=== PATIENT | female | born 1975 | race Caucasian/White ===

== ENCOUNTER 2022-09-03 11:31 | Outpatient (OUT) | payer BC, SELFPAY ==
[2022-09-03 12:08] LABS: Basophils Absolute Auto 0.1 10^3/uL (0.0-0.1); Basophils Percent Auto 0.8 % (0.2-2.0); Eosinophils Absolute Auto 0.4 10^3/uL (0.0-0.7); Eosinophils Percent Auto 4.2 % (0.9-7.0); Hematocrit 42.5 % (36.0-48.0); Hemoglobin 14.4 g/dL (12.0-16.0); Immature Granulocytes Abs Auto 0.04 10^3/uL (0.00-0.03); Immature Granulocytes Pct Auto 0.4 % (0.0-0.5); Lymphocytes Percent Auto 31.3 % (20.5-60.0); Mean Corpuscular HGB Conc 33.9 g/dL (29.9-35.2); Mean Corpuscular Hemoglobin 29.3 pg (26.7-34.0); Mean Corpuscular Volume 86.6 fL (81.0-99.0); Mean Platelet Volume 10.1 fL (9.5-13.5); Monocytes Absolute Auto 0.8 10^3/uL (0.3-0.8); Monocytes Percent Auto 8.6 % (1.7-12.0); Neutrophils Absolute Auto 5.2 10^3/uL (1.4-6.5); Neutrophils Percent Auto 54.7 % (43.0-75.0); Platelet Count 375 10^3/uL (150-450); Red Blood Count 4.91 10^6/uL (4.20-5.40); Red Cell Distribution Width 12.7 % (11.0-15.0); White Blood Count 9.5 10^3/uL (4.0-11.0)
[2022-09-03 12:18] LABS: Estimated Average Glucose 111 mg/dL; Glycohemoglobin A1C 5.5 % (4.5-6.2)
[2022-09-03 12:45] LABS: Alanine Aminotransferase 31 U/L (14-59); Albumin Level 3.8 g/dL (3.4-5.0); Alkaline Phosphatase 96 U/L (46-116); Anion Gap 13.5; Aspartate Amino Transferase 20 U/L (15-37); BUN Creatinine Ratio 9.6; Calcium 8.7 mg/dL (8.5-10.1); Carbon Dioxide 26.7 mmol/L (21.0-32.0); Chloride 101 mmol/L (98-107); Estimated GFR (African America >60 (>=60); Estimated GFR (Non-African Ame >60 (>=60); Globulin 3.8 g/dL; Glucose 89 mg/dL (74-106); Potassium 4.2 mmol/L (3.5-5.1); Sodium 137 mmol/L (136-145); Total Protein 7.6 g/dL (6.4-8.2)
[2022-09-03 12:53] LABS: Chol HDL Ratio 4.2; Cholesterol 166 mg/dL (<=200); HDL Cholesterol 40 mg/dL (40-60); LDL Cholesterol Calculated 109.4 mg/dL; Thyroid Stimulating Hormone 2.305 uIU/mL (0.358-3.740); Triglycerides 83 mg/dL (<=150); VLDL CHOLESTEROL 16.6 mg/dL
== END 2022-09-03 11:32 | disposition home or self-care (01) ==
LOC: LAB 11:34
PROVIDERS: PCP Family Medicine; Visit Provider Family Medicine
DX: Z00.00 Encounter for general adult medical examination without abnormal findings (principal)
CPT/HCPCS: 36415; 80053; 80061; 83036; 84443; 85025

== ENCOUNTER 2022-09-09 07:40 | Outpatient (OUT) | payer BC, SELFPAY ==
--- NOTE | 2022-09-09 07:42 | MM_ITS ---
Patient: PEG RHODES Exam Date: 09/09/2022 : 1975 Gender:F Ordering : DR Ethan Bond . Admission #: [id number] Family : DR Marilynn Schaefer M.D. Order #: [id number] CLICK HERE TO VIEW EXAM RADIOLOGY REPORT PROCEDURE: MM TOMOSYNTHESIS SCREENING BI COMPARISON: MG MAMM SCREEN 3D LOLLY CAD, 09/04/2020. MG MAMM SCREEN 3D LOLLY CAD, 09/05/2021. INDICATIONS: Screening Calculator Name NCI Breast Cancer Risk Assessment Tool 5 Year Breast Cancer Risk 1.00% Lifetime Breast Cancer Risk 8.80% Personal Breast Cancer No Personal Ovarian Cancer No Treatments None Family Cancers None LOCATION: [facility] BREAST COMPOSITION: Heterogeneously dense,which may obscure small masses. FINDINGS: DIAGNOSTIC CATEGORY 2--BENIGN FINDING. NO CHANGE FROM COMPARISON. Scattered benign-appearing nodules are present. Scattered benign-appearing calcifications are present. Scattered benign-appearing lymph nodes are present. RIGHT BREAST: No significant suspicious finding. LEFT BREAST: No significant suspicious finding. RECOMMENDATIONS: ROUTINE MAMMOGRAM AND CLINICAL EVALUATION IN 12 MONTHS. PLEASE NOTE: A NORMAL MAMMOGRAM DOES NOT EXCLUDE THE POSSIBILITY OF BREAST CANCER. A CLINICALLY SUSPICIOUS PALPABLE LUMP SHOULD BE BIOPSIED. Dictated by: Alfred Gan MD on 09/09/2022 at 08:56 Approved by: Alfred Gan MD on 09/09/2022 at 08:57
== END 2022-09-09 07:41 | disposition home or self-care (01) ==
PROVIDERS: PCP Family Medicine; Visit Provider Obstetrics & Gynecology
DX: Z12.31 Encounter for screening mammogram for malignant neoplasm of breast (principal)
CPT/HCPCS: 77063; 77067

== ENCOUNTER 2023-08-21 11:38 | Outpatient (OUT) | payer BC, SELFPAY ==
[2023-08-21 12:58] LABS: Estimated Average Glucose 100 mg/dL; Glycohemoglobin A1C 5.1 % (4.5-6.2)
[2023-08-21 13:00] LABS: Basophils Absolute Auto 0.1 10^3/uL (0.0-0.1); Basophils Percent Auto 1.2 % (0.2-2.0); Eosinophils Absolute Auto 0.2 10^3/uL (0.0-0.7); Eosinophils Percent Auto 2.2 % (0.9-7.0); Hematocrit 41.4 % (36.0-48.0); Hemoglobin 13.9 g/dL (12.0-16.0); Immature Granulocytes Abs Auto 0.02 10^3/uL (0.00-0.03); Immature Granulocytes Pct Auto 0.3 % (0.0-0.5); Lymphocytes Absolute Auto 2.9 10^3/uL (1.2-3.8); Lymphocytes Percent Auto 37.3 % (20.5-60.0); Mean Corpuscular HGB Conc 33.6 g/dL (29.9-35.2); Mean Corpuscular Hemoglobin 29.1 pg (26.7-34.0); Mean Corpuscular Volume 86.8 fL (81.0-99.0); Mean Platelet Volume 10.6 fL (9.5-13.5); Monocytes Absolute Auto 0.6 10^3/uL (0.3-0.8); Platelet Count 364 10^3/uL (150-450); Red Blood Count 4.77 10^6/uL (4.20-5.40); Red Cell Distribution Width 12.2 % (11.0-15.0); White Blood Count 7.8 10^3/uL (4.0-11.0)
[2023-08-21 13:20] LABS: Alanine Aminotransferase 12 U/L (14-59); Albumin Globulin Ratio 1.2; Alkaline Phosphatase 87 U/L (46-116); Anion Gap 14.2; Aspartate Amino Transferase 12 U/L (15-37); BUN Creatinine Ratio 11.5; Bilirubin Total 1.1 mg/dL (0.2-1.0); Calcium 8.9 mg/dL (8.5-10.1); Carbon Dioxide 27.1 mmol/L (21.0-32.0); Chloride 100 mmol/L (98-107); Chol HDL Ratio 2.8; Cholesterol 147 mg/dL (<=200); Estimated GFR (African America >60 (>=60); Estimated GFR (Non-African Ame >60 (>=60); Globulin 3.4 g/dL; Glucose 86 mg/dL (74-106); HDL Cholesterol 53 mg/dL (40-60); LDL Cholesterol Calculated 73.4 mg/dL; Potassium 4.3 mmol/L (3.5-5.1); Sodium 137 mmol/L (136-145); Thyroid Stimulating Hormone 2.481 uIU/mL (0.358-3.740); Total Protein 7.4 g/dL (6.4-8.2); Triglycerides 103 mg/dL (<=150); VLDL CHOLESTEROL 20.6 mg/dL
== END 2023-08-21 11:39 | disposition home or self-care (01) ==
LOC: LAB 11:40
PROVIDERS: PCP Family Medicine; Visit Provider Family Medicine
DX: Z00.00 Encounter for general adult medical examination without abnormal findings (principal)
CPT/HCPCS: 36415; 80053; 80061; 83036; 84443; 85025

== ENCOUNTER 2023-09-10 07:25 | Outpatient (OUT) | payer BC, SELFPAY ==
--- NOTE | 2023-09-10 | MM_ITS ---
Patient Name: PEG RHODES MR#: [id number] : 1975 Exam Date: 09/10/2023 Ordering Doctor: DR Ethan Bond . RADIOLOGY REPORT PROCEDURE: MM TOMOSYNTHESIS SCREENING BI COMPARISON: MG MAMM SCREEN 3D LOLLY CAD, 09/05/2021. MG MAMM SCREEN 3D LOLLY CAD, 09/04/2020. MG MAMM LOLLY SCRN W CAD DIG, 06/07/2004. MM TOMOSYNTHESIS SCREENING BI, 09/09/2022. INDICATIONS: Screening Calculator Name NCI Breast Cancer Risk Assessment Tool 5 Year Breast Cancer Risk 0.90% Lifetime Breast Cancer Risk 8.60% Personal Breast Cancer No Personal Ovarian Cancer No Treatments None Family Cancers None LOCATION: [facility] BREAST COMPOSITION: The breasts are heterogeneously dense,which may obscure small masses. FINDINGS: DIAGNOSTIC CATEGORY 2--BENIGN FINDING: RIGHT BREAST: No significant suspicious finding. Increased breast density bilaterally. LEFT BREAST: No significant suspicious finding. Increased breast density bilaterally suggesting hormonal changes. RECOMMENDATIONS: ROUTINE MAMMOGRAM AND CLINICAL EVALUATION IN 12 MONTHS. PLEASE NOTE: A NORMAL MAMMOGRAM DOES NOT EXCLUDE THE POSSIBILITY OF BREAST CANCER. A CLINICALLY SUSPICIOUS PALPABLE LUMP SHOULD BE BIOPSIED. Dictated by: Jose Mejia M.D. on 09/10/2023 at 09:02 Approved by: Jose Mejia M.D. on 09/10/2023 at 09:07
== END 2023-09-10 07:26 | disposition home or self-care (01) ==
LOC: MAMMO 07:25
PROVIDERS: PCP Family Medicine; Visit Provider Obstetrics & Gynecology
DX: Z00.00 Encounter for general adult medical examination without abnormal findings (principal); Z12.31 Encounter for screening mammogram for malignant neoplasm of breast
CPT/HCPCS: 77063; 77067; 87624; 88175

== ENCOUNTER 2023-09-10 20:11 | Outpatient (REF) | payer BC, SELFPAY | END 2023-09-10 20:12 | disposition home or self-care (01) | LOC: LAB 20:11 | PROVIDERS: PCP Family Medicine; Visit Provider Obstetrics & Gynecology | DX: Z01.419 Encounter for gynecological examination (general) (routine) without abnormal findings (principal) | CPT/HCPCS: 88175 ==

== ENCOUNTER 2023-12-16 10:37 | Outpatient (OUT) | payer BC, SELFPAY | END 2023-12-16 10:38 | disposition home or self-care (01) | LOC: PST 10:37 | PROVIDERS: PCP Family Medicine; Visit Provider Surgery | DX: Z01.818 Encounter for other preprocedural examination (principal); Z12.11 Encounter for screening for malignant neoplasm of colon ==

== ENCOUNTER 2024-01-07 09:05 | Day surgery (SDC) | payer BC, SELFPAY ==
--- NOTE | 2024-01-07 | OP_ITS ---
OPERATION DATE: 01/07/2024 PREOPERATIVE DIAGNOSIS: Colorectal screening. POSTOPERATIVE DIAGNOSIS: 5 mm distal sigmoid polyp. PROCEDURE: Colonoscopy to cecum with hot snare polypectomy x1. SURGEON: Eleno Lund M.D. ANESTHESIA: Monitored anesthesia care. ESTIMATED BLOOD LOSS: Less than 1 mL. INDICATIONS AND CONSENT: Patient is a 48-year-old female presents for colorectal screening. Indications, risks, benefits, alternatives of proceeding with colonoscopy were explained extensively to the patient, including the risks of bleeding, colon perforation or anesthetic complications. All of her questions were answered. Informed consent was obtained. PROCEDURE: Patient brought to the operating room, placed in the left lateral decubitus position. Monitored anesthesia care was provided. Rectal exam was performed which showed no masses or blood. Scope was inserted into the anal canal. Under direct visualization was advanced. It was advanced to the cecum where cecal markings were clearly identified. There was noted to be a good prep. Upon withdrawal of the scope, mucosal surfaces were carefully examined. There were no mass lesions or inflammatory changes. No significant diverticulosis. Within the distal sigmoid, at approximately 20 cm, there was noted to be a 5 mm sessile polyp, frond-like, that was removed with hot snare with good hemostasis. The scope was retroflexed in the anal canal. There was no significant hemorrhoidal disease. Scope was then withdrawn. Patient tolerated procedure well, was sent to recovery room in good condition. Follow up colonoscopy for surveillance should likely be in five years, but will depend on the pathology results. CC: Marilynn Schaefer M.D. RAY
[2024-01-07 09:25] VITALS: BP 109/62; PULSE 77; TEMP 36.4; O2SAT 99; BMI 20.3
--- OUTSIDE RECORDS SUMMARY | 2024-01-07 09:26 | XMS_ITS | CCD ---
Author Organization [facility] Care Team Providers Care [address] Magistrate Name Role Phone DR MARILYNN SILVA Primary Care Unavailable ESME, DALLIN Admitting Unavailable ESME, DALLIN Attending Unavailable ESME, DALLIN Consulting Unavailable RICARDO, DR MARILYNN Bales Primary Care Unavailable HADLEY, DR BONG Rasheed Consulting Unavailable ESME, DALLIN Admitting Unavailable ESME, DALLIN Attending Unavailable ESME, DALLIN Consulting Unavailable ESME, DALLIN Admitting Unavailable SILVA, DR MARILYNN Bales Primary Care Unavailable ESME, DALLIN Attending Unavailable ESME, DALLIN Consulting Unavailable ENTERPRISE, DR BONG Rasheed Consulting Unavailable ESME, DALLIN Admitting Unavailable ESME, DALLIN Attending Unavailable RICARDO, DR MARILYNN Bales Primary Care Unavailable ESME, DALLIN Consulting Unavailable ENTERPRISE, DR BONG Rasheed Consulting Unavailable ESME, DALLIN Admitting Unavailable ESME, DALLIN Attending Unavailable RICARDO, DR MARILYNN Bales Primary Care Unavailable ESME, DALLIN Consulting Unavailable RICARDO, DR MARILYNN Bales Primary Care Unavailable RICARDO, DR MARILYNN Bales Admitting Unavailable RICARDO, DR MARILYNN Bales Attending Unavailable RICARDO, DR MARILYNN Bales Consulting Unavailable Marilynn Silva Unavailable DALLIN BOND Attending Unavailable Eleno COURTNEY Attending Unavailable SID HORNER Referring Unavailable MARILYNN SILVA Primary Care Physician Allergies Allergy Classification Reported Allergen(s) Allergy Type Date of Onset Reaction(s) Facility (1 source) No Known Medication Allergies; Translations: [No Known Medication Allergies] Propensity to adverse reactions (disorder) [facility] Repository Medications Current Medications Medication Drug Class(es) Dates Sig (Normalized) Sig (Original) azithromycin 250 mg oral tablet (1 source) Macrolide Antimicrobial Start: 01-06-2023 Azithromycin 250 MG as directed Orally 2 tabs po today, then 1 tab daily x 4 more days for 5 13 Dec, 2022 Active metFORMIN (7 sources) Biguanide Start: 11-24-2023 metformin Refills(s) 0 Start Date: 11/24/23 Status: Ordered Start: 08-25-2023 take 1 tablet by tara th once daily Metformin Active 1 TAB PO Daily August 25, 2023 12:00am FreeTextSi tablet with a meal Orally Once a day; Note: Source Status: Taking; Provider: Ricardo Subramanian ( ) take 1 tablet by tara th every twenty-four hours metFORMIN HCl 500 MG 1 tablet with a meal Orally Once a day Active phentermine hydrochloride 37.5 mg oral tablet (3 sources) Sympathomimetic Amine Anorectic Start: 10-08-2022 take 1 tablet by mouth once daily before breakfast Adipex-P 37.5 MG 1 tablet before breakfast Orally Once a day for 30 days Sep, Active Start: 09-10-2022 take 1 tablet by tara th once daily before breakfast Adipex-P 37.5 MG 1 tablet before breakfast Orally Once a day for 30 days Aug, Active tizanidine (7 sources) Central alpha-2 Adrenergic Agonist Start: 11-24-2023 tizanidine Refills(s ) 0 Start Date: 11/24/23 Status: Ordered Start: 08-25-2023 take 1 tablet by tara th three times daily as needed Tizanidine Active 1 TAB PO Three times daily August 25, 2023 12:00am FreeTextSi tablet as needed Orally Three times a day; Note: Source Status: Taking; Provider: Ricardo Subramanian ( ) take 1 tablet by tara th every eight hours tiZANidine HCl 2 MG 1 tablet as needed Orally Three times a day Active Zomig (5 sources) Serotonin-1b and Serotonin-1d Receptor Agonist Start: 11-24-2023 Zomig Refills(s) 0 S tart Date: 11/24/23 Status: Ordered Zomig 5 MG 1 spr ay at onset of headache may repeat after 2 hours up to 10 mg per 24 hours as needed Nasally Once a day Active Zolmitriptan (Zomig) 5 mg spray,non-aerosol (2 sources) Start: 08-26-2023 take 1 spray(s) nasal route every two hours Zolmitriptan (Zomig) 5 mg spray,non-aerosol Active 1 SPRAY INTRANASAL Every 2 hours August 26, 2023 12:00am administer into one nostril (only); alternate nostrils; do not exceed 10 mg /24 hrs Problems Active Problems Problem Classification Problem Date Documented Date Episodic/Chronic Abdominal pain (4 sources) Pelvic and perineal pain; Translations: [PELVIC AND PERINEAL PAIN] Onset: 06-10-2022 Episodic Bacterial infection; unspecified site (1 source) Other specified bacterial agents as the cause of diseases classified elsewhere Episodic Headache; including migraine (1 source) Migraine 11-24-2023 Chronic Menopausal disorders (3 sources) Premenopausal menorrhagia; Translations: [Excessive bleeding in the premenopausal period] Chronic Menstrual disorders (6 sources) Irregular periods; Translations: [Irregular menstrual cycle] Onset: 05-22-2006 Chronic Miscellaneous mental health disorders (3 sources) Acute insomnia; Translations: [Adjustment insomnia] Episodic Nonmalignant breast conditions (3 sources) O/E-breast lump-lower out-quad; Translations: [Unspecified lump in the right breast, lower outer quadrant] Episodic Other aftercare (3 sources) History and physical examination, follow-up; Translations: [Encounter for follow-up examination after completed treatment for conditions other than malignant neoplasm] Episodic Other circulatory disease (3 sources) Elevated blood-pressure reading without diagnosis of hypertension; Translations: [Elevated blood-pressure reading, without diagnosis of hypertension] Episodic Other endocrine disorders (1 source) Polycystic ovary syndrome 11-24-2023 Chronic Other female genital disorders (3 sources) Abnormal uterine bleeding; Translations: [Abnormal uterine and vaginal bleeding, unspecified] Chronic Other female genital disorders (3 sources) Hypertrophy of uterus; Translations: [Hypertrophy of uterus] Episodic Other nutritional; endocrine; and metabolic disorders (2 sources) Overweight Episodic Other nutritional; endocrine; and metabolic disorders (3 sources) Body mass index 25-29 - overweight; Translations: [Body mass index (BMI) 27.0-27.9, adult] Episodic Other nutritional; endocrine; and metabolic disorders (2 sources) Body mass index (BMI) 27.0-27.9, adult Episodic Other screening for suspected conditions (not mental disorders or infectious disease) (11 sources) Encounter for screening for malignant neoplasm of cervix; Translations: [Encounter for screening mammogram for malignant neoplasm of breast] Onset: 09-05-2021 Episodic Other upper respiratory infections (4 sources) Acute maxillary sinusitis; Translations: [Acute maxillary sinusitis, unspecified] Episodic Ovarian cyst (11 sources) Unspecified ovarian cyst, unspecified side; Translations: [Unspecified ovarian cyst, right side] Onset: 06-28-2021 Episodic Residual codes; unclassified (3 sources) Postprocedural state finding; Translations: [Other specified postprocedural states] Episodic Unclassified (1 source) Patient encounter status 12-09-2023 Past or Other Problems Problem Classification Problem Date Documented Date Episodic/Chronic Immunizations and screening for infectious disease (4 sources) Encounter for screening for human papillomavirus (HPV); Translations: [Contact with and (suspected) exposure to other viral communicable diseases] Onset: 06-09-2022 Resolved: 05-31-2021 Episodic Nonmalignant breast conditions (4 sources) Fibroadenosis of breast; 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] Onset: 05-22-2006 Resolved: 11-24-2023 11-24-2023 Chronic Spondylosis; intervertebral disc disorders; other back problems (3 sources) Cervico-occipital neuralgia; Translations: [Occipital neuralgia] Onset: 02-02-2015 Episodic Results Test Name Value Interpretation Reference Range Facility Ambulatory Visit Summaryon 1 Ambulatory Visit Summary Ambulatory Visit Summary PEG RHODES :1975 Visit Date:12/09/2023 Ambulatory Visit Instructions Your Diagnosis Screening for malignant neoplasm of colon Your Care Team Attending Physician - SHERWIN MAZARIEGOS, Eleno Patel Primary Care Physician - RICARDO MAZARIEGOS, MARILYNN Referring Physician - SID HORNER DO This Is Your Medications List Contact prescribing physician if questions or concerns metformin tizanidine zolmitriptan (Zomig) Procedures Performed Endometrial ablation, Extraction of wisdom tooth, Lumpectomy of left breast, Rhinoplasty, Tonsillectomy and adenoidectomy. Discharge Vitals Heart Rate (Peripheral) 72 Respiratory Rate 16 Blood Pressure 108/76 Height 162.5 cm Height 64 in Weight 55.8 kg Weight 122.76 lb BMI 21.13 Medications What When Instructions Unchanged metformin Contact prescribing physician if questions or concerns Unchanged tizanidine Contact prescribing physician if questions or concerns Unchanged zolmitriptan (Zomig) Contact prescribing physician if questions or concerns Allergies No Known Allergies No Known Medication Allergies Problems Ongoing - Any problem that you are currently receiving treatment for. Migraines PCOS (polycystic ovarian syndrome) Screening for malignant neoplasm of colon Historical - Any problem that you are no longer receiving treatment for. Fibroadenosis of breast Patient Survey You may receive a survey via text or e-mail asking about your office visit. Please share your experience with us by completing your survey. We appreciate your feedback and thank you for choosing us for your care. Normal [facility] Human papilloma virus 16+18+ 31+33+35+39+45+51+52+56+58+59+66+68 DNA [Presence] in Isak 09-10-2023 HPV 16+18+31+33+35+39+ 45+51+52+56+58+59+ 66+68 DNA Probe+sig amp Ql (Cvx) Negative Negative [facility] Comment on above: This nucleic acid am plification test detects fourteen high- risk HPV types (16,18,31,33,35,39,45,51,52,56,58,59,66,68)without differentiation.Performed at: = - [facility] [id number] Director: Natividad Spencer MD, Phone: [phone] at: - [facility] [id number] Director: Natividad Spencer MD, Phone: [phone] No Panel Informationon 09-09 HPV High Risk Other Comment Note . [facility] Comment on above: TESTS RESULT FLAG UN ITS REF RANGE LAB DIAG NOSIS: 02 NEGATIVE FOR INTRAEPITHELIAL LESION OR MALIGNANCY. CELLULAR CHANGES ASSOCIATED WITH INFLAMMATION ARE PRESENT.Specimen adequacy: 02 Satisfactory for evaluation. Endocervical and/or squamous metaplastic cells (endocervical component) are present.Performed by: 02 Keagan Leung Watchstander ([facility]). 02Note: Note 02 The Pap smear is a screening test designed to aid in the detection of premalignant and malignant conditions of the uterine cervix. It is not a diagnostic procedure and should not be used as the sole means of detecting cervical cancer. Both false-positive and false-negative reports do occur.Test Methodology: Note 02 This liquid based ThinPrep(R) pap test was screened with the use of an image guided system.HPV Genotype Reflex Note 02 Criteria not met, HPV Genotype not performed. --- FLAG LEGEND: L-Low Normal,H-High Normal,LL-Alert Low,HH-Alert High <-Panic Low,>-Panic High,A-Abnormal,AA-Critical Abnormal -Performed at:[address] [facility] [id number] Natividad Spencer MD, Reference Lab Test Patient Age Note . [facility] Comment on above: TESTS RESULT FLAG UN ITS REF RANGE LAB Clinician Provided Cytology Information Source.............Cervix;Endocervix No. of containers..01 ThinPrep VialAge Ilia YANEZ Kay... 28 FLAG LEGEND: L-Low Normal,H-High Normal,LL-Alert Low,HH-Alert High <-Panic Low,>-Panic High,A-Abnormal,AA-Critical Abnormal -Performed at:01 =[facility] [address] [facility] [place] [address] Natividad Spencer MD, Basophils Auto (Bld) [#/Vol] on 08-21-2023 Basophils (Bld) [#/Vol] 0.1 10 3/uL 0.0-0.1 [facility] Basophils/100 WBC Auto (Bld) on 08-21-2023 Basophils/100 WBC (Bld) 1.2 % 0.2-2.0 [facility] Cholesterol in LDL Calc [Mas s/Vol]on 08-21-2023 Cholesterol in LDL [Mass/Vol] 73.4 mg/dL [facility] Comment on above: <100 mg/dl [id number] 0-129 mg/dl NEAR OR ABOVE [id number] mg/dl BORDERLINE [id number] mg/dl HIGH>190 mg/dl VERY HIGH Cholesterol in VLDL Calc [Ma ss/Vol]on 08-21-2023 Cholesterol in VLDL [Mass/Vol] 20.6 mg/dL [facility] Eosinophils/100 WBC Auto (Bl d)on 08-21-2023 Eosinophils/100 WBC (Bld) 2.2 % 0.9-7.0 [facility] Erythrocyte distribution wid th Auto (RBC) [Ratio]on 08-21-2023 Erythrocyte distribution width (RBC) [Ratio] 12.2 % 11.0-15.0 [facility] Estimated glomerular filtrat ion rate (GFR) non- Americanon 08-21-2023 GFR/1.73 sq M.predicted among non-blacks MDRD (S/P/Bld) [Vol rate/Area] mL/min/{1.73_m2} >=60 [facility] Globulin Calc (S) [Mass/Vol] on 08-21-2023 Globulin (S) [Mass/Vol] 3.4 g/dL [facility] Glucose mean value [Mass/vol ume] in Blood Estimated from glycated hemoglobinon 08-21-2023 Average glucose Estimated from glycated hemoglobin (Bld) [Mass/Vol] 100 mg/dL [facility] Hematocrit Auto (Bld) [Volum e fraction]on 08-21-2023 Hematocrit (Bld) [Volume fraction] 41.4 % 36.0-48.0 [facility] Hemoglobin [Mass/volume] in Bloodon 08-21-2023 Hemoglobin (Bld) [Mass/Vol] 13.9 g/dL 12.0-16.0 [facility] Laboratory - Chemistry and C hemistry - challengeon 08-21-2023 Albumin [Mass/Vol] 4.0 g/dL 3.4-5.0 [facility] ALP [Catalytic activity/Vol] 87 U/L 46-116 [facility] ALT [Catalytic activity/Vol] 12 U/L Low 14-59 [facility] AST [Catalytic activity/Vol] 12 U/L Low 15-37 [facility] Bilirubin [Mass/Vol] 1.1 mg/dL High 0.2-1.0 [facility] Calcium [Mass/Vol] 8.9 mg/dL 8.5-10.1 [facility] Chloride [Moles/Vol] 100 mmol/L 98-107 [facility] Cholesterol [Mass/Vol] 147 mg/dL <=200 [facility] Cholesterol in HDL [Mass/Vol] 53 mg/dL 40-60 [facility] Comment on above: > or =60 mg/dl - LOW CARDIOVASCULAR RISK<40 mg/dl - HIGH CARDIOVASCULAR RISK CO2 [Moles/Vol] 27.1 mmol/L 21.0-32.0 [facility] Creatinine [Mass/Vol] 0.87 mg/dL 0.55-1.02 [facility] GFR/1.73 sq M.predicted MDRD (S/P/Bld) [Vol rate/Area] mL/min/{1.73_m2} >=60 [facility] Glucose [Mass/Vol] 86 mg/dL 74-106 [facility] Potassium [Moles/Vol] 4.3 mmol/L 3.5-5.1 [facility] Protein [Mass/Vol] 7.4 g/dL 6.4-8.2 [facility] Sodium [Moles/Vol] 137 mmol/L 136-145 [facility] Triglyceride [Mass/Vol] 103 mg/dL <=150 [facility] TSH Qn 2.481 m[IU]/L 0.358-3.740 [facility] Urea nitrogen [Mass/Vol] 10.0 mg/dL 7.0-18.0 [facility] Urea nitrogen/Creatinin e [Mass ratio] 11.5 mg/mg [facility] Laboratory - Hematology and Cell countson 08-21-2023 HbA1c (Bld) [Mass fraction] 5.1 % 4.5-6.2 [facility] Comment on above: ADA RECOMMENDED LIMI T 4.0 - 6.0ADA THERAPEUTIC TARGET < 7.0ACTION SUGGESTED> 7.0 Immature granulocytes/100 WBC (Bld) 0.3 % 0.0-0.5 [facility] Leukocytes [#/volume] correc minerva for nucleated erythrocytes in Blood by Automated counon 08-21-2023 WBC corrected for nucl RBC Auto (Bld) [#/Vol] 7.8 10 3/uL 4.0-11.0 [facility] Lymphocytes Auto (Bld) [#/Vo l]on 08-21-2023 Lymphocytes (Bld) [#/Vol] 2.9 10 3/uL 1.2-3.8 [facility] Lymphocytes/100 WBC Auto (Bl d)on 08-21-2023 Lymphocytes/100 WBC (Bld) 37.3 % 20.5-60.0 [facility] MCH Auto (RBC) [Entitic mass ]on 08-21-2023 MCH (RBC) [Entitic mass] 29.1 pg 26.7-34.0 [facility] MCHC Auto (RBC) [Mass/Vol]on 08-21-2023 MCHC (RBC) [Mass/Vol] 33.6 g/dL 29.9-35.2 [facility] MCV Auto (RBC) [Entitic vol] on 08-21-2023 MCV (RBC) [Entitic vol] 86.8 fL 81.0-99.0 [facility] Monocytes Auto (Bld) [#/Vol] on 08-21-2023 Monocytes (Bld) [#/Vol] 0.6 10 3/uL 0.3-0.8 [facility] Monocytes/100 WBC Auto (Bld) on 08-21-2023 Monocytes/100 WBC (Bld) 8.0 % 1.7-12.0 [facility] Neutrophils Auto (Bld) [#/Vo l]on 08-21-2023 Neutrophils (Bld) [#/Vol] 4.0 10 3/uL 1.4-6.5 [facility] Neutrophils/100 WBC Auto (Bl d)on 08-21-2023 Neutrophils/100 WBC (Bld) 51.0 % 43.0-75.0 [facility] No Panel Informationon 08-20 Eosinophils # (Auto) 0.2 10 3/uL 0.0-0.7 [facility] Immature Granulocyte # (Auto) 0.02 10 3/uL 0.00-0.03 [facility] Platelet mean volume Auto (B ld) [Entitic vol]on 08-21-2023 Platelet mean volume (Bld) [Entitic vol] 10.6 fL 9.5-13.5 [facility] Platelets Auto (Bld) [#/Vol] on 08-21-2023 Platelets (Bld) [#/Vol] 364 10 3/uL 150-450 [facility] RBC Auto (Bld) [#/Vol]on RBC (Bld) [#/Vol] 4.77 10 6/uL 4.20-5.40 [facility] Serum or plasma albumin/glob ulin mass ratioon 08-21-2023 Albumin/Globulin [Mass ratio] 1.2 {ratio} [facility] Serum or plasma anion gap de terminationon 08-21-2023 Anion gap [Moles/Vol] 14.2 mmol/L [facility] Serum or plasma total choles terol/high density lipoprotein (HDL) cholesterol mass rola 08-21-2023 Cholesterol.total/ Cholesterol in HDL [Mass ratio] 2.8 {ratio} [facility] Comment on above: 3.3 - 4.4 LOW RISK4. 4 - 7.1 AVERAGE RISK7.1 - 11.0 MODERATE RISK>11.0 HIGH RISK PAP ACOG PANEL 2: 30 to 65on 06-11-2022 . . Normal [facility] Comment on above: Result Comment: Perf ormed at: WB Performed By: #### [id number] #### [facility] [address] [address] [address] Sobia Iqbal Age Gdln ACOG Testing 30-65 [facility] Comment on above: Performed By: #### [id number] #### [facility] [address] [address] [address] Sobia Iqbal DIAGNOSIS: Comment Normal [facility] Comment on above: Result Comment: NEGA TIVE FOR INTRAEPITHELIAL LESION OR MALIGNANCY. Performed at: WB Performed By: #### [id number] #### [facility] [address] [address] [address] Sobia Iqbal HPV Aptima Negative Normal Negative [facility] Comment on above: Result Comment: This nucleic acid amplification test detects fourteen high-risk HPV types (16,18,31,33,35,39,45,51,52,56,58,59,66,68) without differentiation. Performed at: =G Performed By: #### [id number] #### [facility] [address] [address] [address] Sobia Iqbal HPV Genotype Reflex Comment Normal [facility] Comment on above: Result Comment: Crit eria not met, HPV Genotype not performed. Performed at: WB Performed By: #### [id number] #### [facility] [address] [address] [address] Sobia Iqbal Methodology: Comment Normal [facility] Comment on above: Result Comment: This liquid based ThinPrep(R) pap test was screened with the use of an image guided system. Performed at: WB Performed By: #### [id number] #### [facility] [address] [place] [address] Dr. Sobia Iqbal Note: Comment Normal [facility] Comment on above: Result Comment: The Pap smear is a screening test designed to aid in the detection of premalignant and malignant conditions of the uterine cervix. It is not a diagnostic procedure and should not be used as the sole means of detecting cervical cancer. Both false-positive and false-negative reports do occur. . Performed at: WB Performed By: #### [id number] #### [facility] [address] [place] [address] Dr. Sobia Iqbal Performed by: Comment Normal [facility] Comment on above: Result Comment: Gely Esquivel, Watchstander (ASCP) Performed at: WB Performed By: #### [id number] #### [facility] [address] [place] [address] Dr. Sobia Iqbal Specimen adequacy: Comment Normal [facility] Comment on above: Result Comment: Sati sfactory for evaluation. Endocervical and/or squamous metaplastic cells (endocervical component) are present. Performed at: WB Performed By: #### [id number] #### [facility] [address] [place] [address] Dr. Sobia Iqbal US PELVIS AND TRANSVAGon US PELVIS AND TRANSVAG EXAMINATION: US PELVIS AND TRANSVAG HISTORY: Pelvic and perineal pain COMPARISON: 07/17/2021 FINDINGS: Transabdominal and transvaginal images. Limited by bowel gas The uterus is normal in size, contour and myometrial echotexture measuring 8.0 x 4 2 cm, anteverted. The endometrium measures 4.6 mm, normal. Area of anechoic echogenicity measuring 5 mm, small amount of fluid suspected The right ovary measures 2.7 x 2.2 x 1.8 cm. Normal color Doppler flow. 9 mm area of anechoic echogenicity, cyst versus follicle The left ovary measures 2.5 x 1.5 x 1.8 cm. Normal color and Doppler flow. No free fluid IMPRESSION: No acute abnormality Electronically authenticated by: BONG BUTCHER Date: 2022-06-10 18:15 Normal [facility] CBC AUTO DIFFon 09-25-2021 BASO # 0.1 103/ul Normal 0.0-0.1 [facility] Comment on above: Performed By: #### C BC ####[facility] [address] [id number]. Sobia Rasheed Basophils/100 WBC (Bld) 0.7 % Normal 0.2-2.0 [facility] Comment on above: Performed By: #### C BC ####[facility] [address] [id number]. Sobia Rasheed EO # 0.3 103/ul Normal 0.0-0.7 [facility] Comment on above: Performed By: #### C BC ####[facility] [address] [place], [place] [address]Dr. Marshaketan Iqbal Eosinophils/100 WBC (Bld) 3.0 % Normal 0.9-7.0 [facility] Comment on above: Performed By: #### C BC ####[facility] [address] [place], [place] [address]Dr. Marshaketan Iqbal Erythrocyte distribution width (RBC) [Ratio] 12.5 % Normal 11.0-15.0 [facility] Comment on above: Performed By: #### C BC ####[facility] [address] [id number]. Sobia Iqbal Hematocrit (Bld) [Volume fraction] 43.1 % Normal 36.0-48.0 [facility] Comment on above: Performed By: #### C BC ####[facility] [address] [id number]. Sobia Iqbal Hemoglobin (Bld) [Mass/Vol] 14.7 g/dL Normal 12.0-16.0 [facility] Comment on above: Performed By: #### C BC ####[facility] [address] [place], [place] [id number]. Sobia Iqbal IG # 0.03 10e3/ul Normal 0.00-0.03 [facility] Comment on above: Performed By: #### C BC ####[facility] [address] [place], [place] [address]Pw. Sobia Iqbal IG % 0.4 % Normal 0.0-0.5 [facility] Comment on above: Performed By: #### C BC ####[facility] [address] [id number]. Sobia Iqbal LYMPH # 2.5 103/ul Normal 1.2-3.8 [facility] Comment on above: Performed By: #### C BC ####[facility] [address] [id number]. Sobia Iqbal Lymphocytes/100 WBC (Bld) 30.1 % Normal 20.5-60.0 [facility] Comment on above: Performed By: #### C BC ####[facility] [address] [id number]. Sobia Iqbal MANUAL DIFF REQ NO Normal [facility] Comment on above: Performed By: #### C BC ####[facility] [address] [id number]. Sobia Iqbal MCH (RBC) [Entitic mass] 29.7 pg Normal 26.7-34.0 [facility] Comment on above: Performed By: #### C BC ####[facility] [address] [id number]. Sobia Iqbal MCHC (RBC) [Mass/Vol] 34.1 g/dL Normal 29.9-35.2 [facility] Comment on above: Performed By: #### C BC ####[facility] [address] [id number]. Sobia Iqbal MCV (RBC) [Entitic vol] 87.1 fL Normal 81.0-99.0 [facility] Comment on above: Performed By: #### C BC ####[facility] [address] [id number]. Sobia Iqbal MONO # 0.6 103/ul Normal 0.3-0.8 [facility] Comment on above: Performed By: #### C BC ####[facility] [address] [id number]. Sobia Iqbal Monocytes/100 WBC (Bld) 7.6 % Normal 1.7-12.0 [facility] [facility] Comment on above: Performed By: #### C BC ####[facility] [id number] [id number]. Sobia Iqbal NEUT # 4.9 103/ul Normal 1.4-6.5 [facility] Comment on above: Performed By: #### C BC ####[facility] [id number] [place] [id number]. Sobia Iqbal Neutrophils/100 WBC (Bld) 58.2 % Normal 43.0-75.0 [facility] Comment on above: Performed By: #### C BC ####[facility] [id number] [place] [id number]. Sobia Iqbal Platelet mean volume (Bld) [Entitic vol] 9.9 fL Normal 9.5-13.5 [facility] Comment on above: Performed By: #### C BC ####[facility] [address] [id number]. Sobia Iqbal PLT 386 103/ul Normal 150-450 [facility] Comment on above: Performed By: #### C BC ####[facility] [address] [id number]. Sobia Iqbal RBC 4.95 106/ul Normal 4.20-5.40 [facility] Comment on above: Performed By: #### C BC ####[facility] [id number] [id number]. Sobia Iqbal WBC 8.4 103/ul Normal 4.0-11.0 [facility] Comment on above: Performed By: #### C BC ####[facility] [address] [id number]. Sobia Iqbal GLYCOHEMOGLOBIN A1Con 2021 ADA RECOMMENDATION SEE BELOW Normal [facility] Comment on above: Result Comment: ADA RECOMMENDED LIMIT 4.0 - 6.0 ADA THERAPEUTIC TARGET < 7.0 ACTION SUGGESTED > 7.0 Performed By: #### A 1C #### [facility] [address] [address] [address] Sobia Iqbal Glucose [Mass/Vol] 117 mg/dL Normal [facility] Comment on above: Performed By: #### A 1C #### [facility] [address] [address] [address] Sobia Iqbal HbA1c (Bld) [Mass fraction] 5.7 % Normal 4.5-6.2 [facility] Comment on above: Performed By: #### A 1C #### [facility] [address] [place] [address] Dr. Sobia Iqbal LIPID PROFILEon 09-25-2021 CHOL-HDL RATIO NORM SEE BELOW Normal [facility] Comment on above: Result Comment: 3.3 - 4.4 LOW RISK 4.4 - 7.1 AVERAGE RISK 7.1 - 11.0 MODERATE RISK >11.0 HIGH RISK Performed By: #### T LEANNA, LIPID, CMP #### [facility] [address] [place] [address] Dr. Sobia Iqbal Cholesterol [Mass/Vol] 153 mg/dL Normal <=200 [facility] Comment on above: Performed By: #### T LEANNA, LIPID, CMP #### [facility] [address] [place] [address] Dr. Sobia Iqbal Cholesterol in HDL [Mass/Vol] 36 mg/dL Critically low 40-60 [facility] Comment on above: Performed By: #### T LEANNA, LIPID, CMP #### [facility] [address] [address] [address] Sobia Iqbal Cholesterol in LDL [Mass/Vol] 97.8 mg/dL Normal [facility] Comment on above: Performed By: #### T SH, LIPID, CMP #### [facility] [address] [place] [address] Dr. Sobia Iqbal Cholesterol.total/ Cholesterol in HDL [Mass ratio] 4.3 {ratio} Normal [facility] Comment on above: Performed By: #### T SH, LIPID, CMP #### [facility] [address] [place] [address] Dr. Sobia Iqbal HDL NORMAL > or = 60 mg/dl - LO W CARDIOVASCULAR RISK <40 mg/dl - HIGH CARDIOVASCULAR RISK Normal [facility] Comment on above: Performed By: #### T LEANNA, LIPID, CMP #### [facility] [address] [address] [address] Sobia Iqbal LDL CALC NORMAL SEE BELOW Normal [facility] Comment on above: Result Comment: <100 mg/dl OPTIMAL 100 - 129 mg/dl NEAR OR ABOVE OPTIMAL 130 - 159 mg/dl BORDERLINE HIGH 160 - 189 mg/dl HIGH >190 mg/dl VERY HIGH Performed By: #### T LEANNA, LIPID, CMP #### [facility] [address] [address] [address] Sobia Iqbal Triglyceride [Mass/Vol] 96 mg/dL Normal <=150 [facility] Comment on above: Performed By: #### T LEANNA, LIPID, CMP #### [facility] [address] [place] [address] Dr. Sobia Iqbal VLDL CALC 19.2 mg/dL Normal [facility] Comment on above: Performed By: #### T LEANNA, LIPID, CMP #### [facility] [address] [address] [address] Sobia Iqbal PROF 14(COMP METB)on 022 Albumin [Mass/Vol] 3.7 g/dL Normal 3.4-5.0 [facility] Comment on above: Performed By: #### T LEANNA, LIPID, CMP #### [facility] [address] [place] [address] Dr. Sobia Iqbal Albumin/Globulin [Mass ratio] 1.1 {ratio} Normal [facility] Comment on above: Performed By: #### T LEANNA, LIPID, CMP #### [facility] [address] [place] [address] Dr. Sobia Iqbal ALP [Catalytic activity/Vol] 95 U/L Normal 46-116 [facility] Comment on above: Performed By: #### T SH, LIPID, CMP #### [facility] [address] [place] [address] Dr. Sobia Iqbal ALT [Catalytic activity/Vol] 22 U/L Normal 14-59 [facility] Comment on above: Performed By: #### T LEANNA, LIPID, CMP #### [facility] [address] [place] [address] Dr. Sobia Iqbal Anion gap [Moles/Vol] 10.7 mmol/L Normal [facility] Comment on above: Performed By: #### T LEANNA, LIPID, CMP #### [facility] [address] [place] [address] Dr. Sobia Iqbal AST [Catalytic activity/Vol] 15 U/L Normal 15-37 [facility] Comment on above: Performed By: #### T LEANNA LIPID, CMP #### [facility] [address] [place] [address] Dr. Sobia Iqbal Bilirubin [Mass/Vol] 0.8 mg/dL Normal 0.2-1.0 [facility] Comment on above: Performed By: #### T LEANNA LIPID, CMP #### [facility] [address] [place] [address] Dr. Sobia Iqbal Calcium [Mass/Vol] 8.5 mg/dL Normal 8.5-10.1 [facility] Comment on above: Performed By: #### T LEANNA LIPID, CMP #### [facility] [address] [place] [address] Dr. Sobia Iqbal Chloride [Moles/Vol] 103 mmol/L Normal 98-107 [facility] Comment on above: Performed By: #### T LEANNA, LIPID, CMP #### [facility] [address] [place] [address] Dr. Sobia Iqbal CO2 [Moles/Vol] 28.6 mmol/L Normal 21.0-32.0 [facility] Comment on above: Performed By: #### T LEANNA, LIPID, CMP #### [facility] [address] [place] [address] Dr. Sobia Iqbal Creatinine [Mass/Vol] 0.90 mg/dL Normal 0.55-1.02 [facility] Comment on above: Performed By: #### T LEANNA, LIPID, CMP #### [facility] [address] [address] [address] Sobia Iqbal EGFR-AF GERMAN >60 Normal >=60 [facility] Comment on above: Performed By: #### T SH, LIPID, CMP #### [facility] [address] [place] [address] Dr. Sobia Iqbal EGFR-NON AF GERMAN >60 Normal >=60 [facility] Comment on above: Performed By: #### T SH, LIPID, CMP #### [facility] [address] [place] [address] Dr. Sobia Iqbal Globulin (S) [Mass/Vol] 3.5 g/dL Normal [facility] Comment on above: Performed By: #### T SH, LIPID, CMP #### [facility] [address] [place] [address] Dr. Sobia Iqbal Glucose [Mass/Vol] 83 mg/dL Normal 74-106 [facility] Comment on above: Performed By: #### T LEANNA, LIPID, CMP #### [facility] [address] [place] [address] Dr. Sobia Iqbal Potassium [Moles/Vol] 4.3 mmol/L Normal 3.5-5.1 [facility] Comment on above: Performed By: #### T LEANNA, LIPID, CMP #### [facility] [address] [place] [address] Dr. Sobia Iqbal Protein [Mass/Vol] 7.2 g/dL Normal 6.4-8.2 [facility] Comment on above: Performed By: #### T SH, LIPID, CMP #### [facility] [address] [place] [address] Dr. Sobia Iqbal Sodium [Moles/Vol] 138 mmol/L Normal 136-145 [facility] Comment on above: Performed By: #### T SH, LIPID, CMP #### [facility] [address] [place] [address] Dr. Sobia Iqbal Urea nitrogen [Mass/Vol] 10.0 mg/dL Normal 7.0-18.0 [facility] Comment on above: Performed By: #### T SH, LIPID, CMP #### [facility] [address] [place], [place] [address] Dr. Sobia Iqbal Urea nitrogen/Creatinin e [Mass ratio] 11.1 mg/mg Normal [facility] Comment on above: Performed By: #### T SH, LIPID, CMP #### [facility] [address] [place], [place] [address] Dr. Sobia Iqbal TSHon 09-25-2021 TSH 1.843 uIU/mL Normal 0.358-3.740 [facility] Comment on above: Performed By: #### T SH, LIPID, CMP #### [facility] [address] [place], [place] [address] Dr. Sobia Iqbal MG MAMM SCREEN 3D LOLLY CADon 09-05-2021 MG MAMM SCREEN 3D LOLLY CAD Patient: PEG RHODES Exam Date: 09/05/2021 : 1975 Gender:F Ordering : DR DALLIN BOND . Admission #: [id number] Family : DR MARILYNN SILVA M.D. Order #: [id number] CLICK HERE TO VIEW EXAM RADIOLOGY REPORT PROCEDURE: MAMMOGRAM SCREENING 3D BILATERAL CAD COMPARISON: MG MAMM SCREEN 3D LOLLY CAD, 09/04/2020. MG MAMM SCREEN LOLLY W CAD, 08/04/2019. INDICATIONS: Screening mammography Calculator Name NCI Breast Cancer Risk Assessment Tool 5 Year Breast Cancer Risk 1.00% Lifetime Breast Cancer Risk 9.00% Personal Breast Cancer No Personal Ovarian Cancer No Treatments None Family Cancers None LOCATION: [facility] BREAST COMPOSITION: Heterogeneously dense,which may obscure small masses. FINDINGS: DIAGNOSTIC CATEGORY 2--BENIGN FINDING. NO CHANGE FROM COMPARISON. Scattered benign-appearing nodules are present. Scattered benign-appearing calcifications are present. Scattered benign-appearing lymph nodes are present. RIGHT BREAST: No significant suspicious finding. LEFT BREAST: No significant suspicious finding. RECOMMENDATIONS: ROUTINE MAMMOGRAM AND CLINICAL EVALUATION IN 12 MONTHS. PLEASE NOTE: A NORMAL MAMMOGRAM DOES NOT EXCLUDE THE POSSIBILITY OF BREAST CANCER. A CLINICALLY SUSPICIOUS PALPABLE LUMP SHOULD BE BIOPSIED. Dictated by: Bong Butcher MD on 09/05/2021 at 08:22 Approved by: Bong Butcher MD on 09/05/2021 at 08:24 Normal [facility] US PELVIS AND TRANSVAGon US PELVIS AND TRANSVAG EXAMINATION: US PELVIS AND TRANSVAG HISTORY: Cyst of ovary COMPARISON: 06/05/2021 FINDINGS: Transabdominal and transvaginal images The uterus is normal in size, contour and myometrial echotexture measuring 7.7 x 4.6 x 4.4 cm. Anteverted. No focal myometrial mass. The endometrium measures 6.1 mm, normal. 4 mm area of anechoic echogenicity lower endometrium. Multiple anechoic and hypoechoic lesions in the cervix likely calcifications and nabothian cysts The right ovary measures 2.7 x 2.1 x 2.0 cm. Normal color flow. Normal resistive index of 0.5. 1.7 x 0.9 x 0.9 cm cystic area with low-level echoes. The left ovary is not visualized IMPRESSION: 1.7 cm right ovarian cyst. Grossly stable in size from the prior exam 4 mm anechoic area in the lower endometrium, nonspecific, possibly fluid Electronically authenticated by: BONG BUTCHER Date: 2021-07-17 14:15 Normal [facility] CA 125on 06-27-2021 Cancer Antigen (CA) 125 15.8 U/mL Normal 0.0-38.1 [facility] Comment on above: Result Comment: [employer] Electrochemiluminescence Immunoassay (ECLIA) . Values obtained with different assay methods or kits cannot be used interchangeably. Results cannot be interpreted as absolute evidence of the presence or absence of malignant disease. Performed By: #### C A 125 #### [facility] [address] [address] [address] Sobia Iqbal CEAon 06-27-2021 CEA 1.4 ng/mL Normal 0.0-4.7 [facility] Comment on above: Result Comment: Nons mokers <3.9 Smokers <5.6 . [employer] Electrochemiluminescence Immunoassay (ECLIA) . Values obtained with different assay methods or kits cannot be used interchangeably. Results cannot be interpreted as absolute evidence of the presence or absence of malignant disease. Performed By: #### C EA. #### [facility] [address] [address] [address] Sobia Iqbal LDHon 06-26-2021 LDH 244 U/L Critically high 81-234 [facility] Comment on above: Performed By: #### P REGQNT, LDH ####[facility] [address] [place], [place] [address]Vi. Sobia Rasheed PREG QUANT HCGon 06-26-2021 HCG QUANT <1 Normal [facility] Comment on above: Performed By: #### P REGQNT, LDH ####[facility] [address] [place], [place] [address]Ah. Sobia Rasheed HCG RANGE SEE BELOW Normal [facility] Comment on above: Result Comment: 5-50 0-1 WEEK 40-300 1-2 WEEKS 100-1,000 2-3 WEEKS 500-6,000 3-4 WEEKS 5,000-200,000 1-2 MONTHS 10,000-100,000 2-3 MONTHS 3,000-50,000 2ND TRIMESTER 1,000-50,000 3RD TRIMESTER Performed By: #### P REGQNT, LDH ####[facility] [id number] [place], [place] [address]On. Sobia Rasheed Vital Signs Date Time Vital Sign Value Performing Clinician Facility 12-09-2023 15:19-0400 Blood Pressure Location [address] [facility] 12-09-2023 15:19-0400 Diastolic blood pressure 76 mm[Hg] [employer] [facility] 12-09-2023 15:19-0400 Heart rate 72 /min [employer] [facility] 12-09-2023 15:19-0400 Respiratory rate 16 /min [employer] [facility] 12-09-2023 15:19-0400 Systolic blood pressure 108 mm[Hg] [employer] [facility] 10-08-2023 09:07-0400 Body height 162.56 cm [facility] 10-08-2023 09:07-0400 Body mass index (BMI) [Ratio] 21.3 kg/m2 [facility] 10-08-2023 09:07-0400 Body weight 56.35 kg [facility] 10-08-2023 09:07-0400 Diastolic blood pressure 83 mm[Hg] [facility] 10-08-2023 09:07-0400 Heart rate 76 /min [facility] 10-08-2023 09:07-0400 Respiratory rate 12 /min [facility] 10-08-2023 09:07-0400 Systolic blood pressure 129 mm[Hg] [facility] 08-26-2023 13:40-0400 Body height 162.56 cm [facility] 08-26-2023 13:40-0400 Body mass index (BMI) [Ratio] 21.4 kg/m2 [facility] 08-26-2023 13:40-0400 Body weight 56.69 kg [facility] 08-26-2023 13:40-0400 Diastolic blood pressure 66 mm[Hg] [facility] 08-26-2023 13:40-0400 Heart rate 65 /min [facility] 08-26-2023 13:40-0400 Systolic blood pressure 100 mm[Hg] [facility] 10-08-2022 13:15-0400 Body height 162.56 cm Marilynn Silva Other [facility] [employer] Other 10-08-2022 13:15-0400 Body mass index (BMI) [Ratio] 25.57 kg/m2 Marilynn Silva Other [facility] Other 10-08-2022 13:15-0400 Body mass index (BMI) [Ratio] 27.12 kg/m2 Marilynn Silva Other [facility] Other 10-08-2022 13:15-0400 Body weight 67.59 kg Marilynn Silva Other [facility] [employer] Other 10-08-2022 13:15-0400 Body weight 71.67 kg Marilynn Silva Other [facility] Other 10-08-2022 13:15-0400 Diastolic blood pressure 74 mm[Hg] Marilynn Silva Other [facility] Other 10-08-2022 13:15-0400 Systolic blood pressure 110 mm[Hg] Marilynn Silva Other [facility] Other 09-10-2022 13:00-0400 Body height 162.56 cm Marilynn Silva Other [facility] Other 09-10-2022 13:00-0400 Body mass index (BMI) [Ratio] 25.74 kg/m2 Marilynn Silva Other [facility] Other 09-10-2022 13:00-0400 Body weight 68.04 kg Marilynn Silva Other [facility] Other 09-10-2022 13:00-0400 Diastolic blood pressure 80 mm[Hg] Marilynn Silva Other [facility] Other 09-10-2022 13:00-0400 Systolic blood pressure 125 mm[Hg] Marilynn Silva Other [facility] Other Encounters Encounter Date Encounter Type Care Provider Facility Start: 12-09-2023 End: 12-09-2023 ambulatory Eleno COURTNEY Facility: [facility] Start: 12-09-2023 End: 12-09-2023 Patient encounter procedure Eleno COURTNEY [facility] Start: 11-13-2023 ambulatory Eleno COURTNEY Facility:[facility] Start: 10-08-2023 End: 10-08-2023 ambulatory [facility] Work Phone: Start: 10-08-2023 End: 10-08-2023 Patient encounter procedure [facility] Work Phone: Start: 09-10-2023 Non-patient / Non-visit [facility] Work Phone: Start: 09-10-2023 End: 09-10-2023 ambulatory DALLIN BOND Not Available Start: 08-26-2023 End: 08-26-2023 ambulatory [facility] Work Phone: Start: 08-26-2023 End: 08-26-2023 Encounter for general adult medical examination without abnormal findings [facility] Start: 08-26-2023 End: 08-26-2023 Patient encounter procedure [facility] Work Phone: Start: 08-21-2023 Non-patient / Non-visit [facility] Work Phone: Start: 08-19-2023 Patient encounter status [facility] Start: 01-06-2023 (Televisit) Televisit Marilynn Silva [facility] Start: 01-06-2023 End: 01-06-2023 ambulatory Marilynn Silva Other [facility] Other Start: 10-08-2022 End: 10-08-2022 ambulatory Marilynn Silva Other [facility] Other Start: 10-08-2022 Office outpatient vi sit 10 minutes Marilynn Silva [facility] Start: 09-10-2022 End: 09-10-2022 ambulatory Marilynn Silva Other [facility] Other Start: 09-10-2022 Encounter for genera l adult medical examination without abnormal findings Marilynn Silva [facility] Start: 09-10-2022 Periodic preventive med est patient 40-64yrs Marilynn Silva [facility] Start: 06-10-2022 End: 06-11-[address] MARILYNN SILVA Facility:[facility] Start: 06-04-2022 End: 06-04-[address] MARILYNN SILVA Facility:[facility] Start: 10-04-2021 Adult health examination Sarah Silva Other [facility] Other Start: 10-04-2021 Gynecological examin ation normal Marilynn Silva Other [facility] Other Start: 09-29-2021 Encounter for genera l adult medical examination without abnormal findings DR MARILYNN SILVA [facility] Start: 09-25-2021 End: 09-26-[address] MARILYNN SILVA Facility:[facility] Start: 09-25-2021 End: 09-26-2021 Encounter for general adult medical examination without abnormal findings DR MARILYNN SILVA Facility:[facility] Start: 09-05-2021 End: 09-06-[address] BONG BUTCHER Facility:[facility] Start: 07-17-2021 End: 07-18-[address] BONG BUTCHER Facility:[facility] Start: 06-26-2021 End: 06-27-2021 ambulatory DALLIN BOND Facility:[facility] Procedures Date Procedure Procedure Detail Performing Clinician Endometrial ablation Eleno COURTNEY Extraction of wisdom tooth M ichdanya NILL Lumpectomy of left breast Mi blanca NILL Reconstruction of nose Shayan kelly NILL Screening for malign ant neoplasm of breast Marilynn Silva Other Tonsillectomy and adenoidectomy Eleno PEARLL Immunizations Immunization Date Immunization Notes Care Provider Fa franc 02-12-2021 SARS-CoV-2 (COVID-19 ) mRNA-1273 vaccine [facility] Comment on above: Result Comment: 2023: [id number] 01-15-2021 SARS-CoV-2 (COVID-19 ) mRNA-1273 vaccine Eleno NILL [facility] Comment on above: Result Comment: 2023: [id number] Payers Date Payer Category Payer Unknown [id number] 2022 Unknown [id number] 2019 Unknown [id number] 1975 Unknown [id number] 2.16.84 [id number] 1975 Unknown [id number] 2.16.84 [id number] 1975 Unknown [id number] 2.16.84 [id number] 1975 Unknown [id number] 2.16.84 [id number] 1975 Unknown [id number] 2.16.84 [id number] 1975 Unknown [id number] 2.16.84 [id number] 1975 Unknown [id number] 2.16.84 [id number] 1975 Unknown [id number] 2.16.8 [id number] Social History Date Type Detail Facility Unknown if ever smoked [facility] Other Sex Assigned At [facility] Start: 08-26-2023 End: 12-09-2023 Tobacco smoking status NHIS Ex-smoker (finding) [facility] Start: 1975 Sex Assigned At Female F [facility] Tobacco smoking status Never [facility] Functional Status Date Assessment Result Facility 12-09-2023 Functional Status N/A [facility] Clinical Note 12-09-2023 Note Date & Type Note Facility 12-09-2023 Note General Surgery Offi ce/Clinic Note Chief Complaint consultation for colonoscopy HPI Staff 48 year old female presents on consultation from Dr. Silva for screening colonoscopy. Denies abdominal or rectal pain. No rectal bleeding or change in bowel habits. Denies nausea or vomiting. No unexplained weight loss. Never had colonoscopy in the past. No known family history of colon cancer. History of Present Illness 48 yo female with h/o migraines, polycystic ovarian syndrome, referred for colorectal screening; denies change in bms or blood in stools; no abd complaints; no abdominal operations or previous colonoscopy; no asa or NSAID use; no tobacco use; no fmhx of GI malignancy or IBD. Review of Systems PHQ Score Initial Depression Screen Score: 0 SCORE ROS - Provider Constitutional: no fever, no sweats, no weight loss. Eyes: no glasses, no blurred vision, no visual loss. ENMT: no dentures, no hoarseness, no swallowing difficulties, no hearing loss, no ear infection(s), no nose bleeds. Cardiovascular: normal blood pressure, no chest pain, regular heartbeat, no heart murmur. Respiratory: no shortness of breath, no cough, no asthma, no wheezing. Gastrointestinal: no nausea, no vomiting, no diarrhea, no constipation, no blood in stool, no change in bowel habits, no abdominal pain, no hepatitis. Genitourinary: no kidney stones, no urine infection, no dysuria. Musculoskeletal: no pain, no weakness. Skin: no changing moles, no rash, no skin lumps. Neurologic: no seizures, no epilepsy, no headache. Psychiatric: no emotional or psychiatric problem. Heme/Lymph: no bleeding problems, no anemia, no blood clots, no transfusions. Allergy/Immunologic: no swollen lymph nodes/glands, no IV drug abuse. Other: Additional ROS info: Except as noted in the above Review of Systems and in the History of Present Illness, all other systems have been reviewed and are negative or noncontributory. Physical Exam Vitals & Measurements HR: 72(Peripheral) RR: 16 BP: 108/76 HT: 64 in HT: 162.5 cm WT: 55.8 kg WT: 122.76 lb BMI: 21.13 HEENT: normal conjunctiva, sclera clear, no scleral icterus, EOM intact, PERRLA, oral mucosa moist without lesions. Neck: trachea midline, no mass, symmetric, no thyromegaly or nodules, no adenopathy Respiratory: lungs CTA, respirations non labored. Cardiovascular: regular rate and rhythm, no murmur, no pedal edema or varicosities. Gastrointestinal: soft, non distended, no tenderness, no masses, no palpable hernias, diastasis recti no, no hepatosplenomegaly; normal bs Lymphatic: no cervical adenopathy, no supraclavicular adenopathy. Musculoskeletal: normal gait, digits and nails without infection, nodes, cyanosis, clubbing. Skin: no rashes, no lesions, no ulcers, no subcutaneous nodules, induration. Psychiatric/Neuro: oriented to time, place, person, judgement normal, affect appropriate for age, insight intact, no focal deficits. Tests: , review of old records completed , Discussed surgical options, risks, and possible complications with patient. Assessment/Plan 1. Screening for malignant neoplasm of colon (Z12.11: Encounter for screening for malignant neoplasm of colon) plan colonoscopy under anesthesia, informed consent obtained. Follow-up No qualifying data available Problem List/Past Medical History Ongoing Migraines PCOS (polycystic ovarian syndrome) Screening for malignant neoplasm of colon Historical Fibroadenosis of breast Procedure/Surgical History Endometrial ablation, Extraction of wisdom tooth, Lumpectomy of left breast, Rhinoplasty, Tonsillectomy and adenoidectomy. Medications metformin tizanidine Zomig Allergies No Known Allergies No Known Medication Allergies Social History Alcohol - Denies Alcohol Use, 12/09/2023 Substance Abuse - Denies Substance Abuse, 12/09/2023 Tobacco Former smoker, quit more than 30 days ago Tobacco Use:. Never Smokeless Tobacco Use:. Cigarettes, 0.5 per day. Started age 16.0 Years. Stopped age 22 Years., 12/09/2023 Family History Hypertension: Father. Immunizations Vaccine Date Status Comments SARS-CoV-2 (COVID-19) mRNA-1273 vaccine 02/12/2021 Recorded 2023-11-24: TPV40 SARS-CoV-2 (COVID-19) mRNA-1273 vaccine 01/15/2021 Recorded 2023-11-24: TPV40 [facility] Comment on above: Result Comment: Elec tronically Signed By: SHERWIN MAZARIEGOS, Eleno Belle\Date and Time Signed: 12/09/23 15:44 EDT Evaluation note 01-06-2023 Note Date & Type Note Facility 01-06-2023 Evaluation note Encounter Date Diagnosis Assessment Notes Dec, Acute sinusitis, unspecified (ICD-10 - J01.90) Patient will obtain COVID test from pharmacy as she does not have any at home also sent in antibiotics to rule out any bacterial causes. We will give work note if needed she is going to take a few days off to rest up stay hydrated take as needed cold medicines. Dec, Other specified bacterial agents as the cause of diseases classified elsewhere (ICD-10 - B96.89) [facility] Other Evaluation note 10-08-2022 Note Date & Type Note Facility 10-08-2022 Evaluation note Encounter Date Diagnosis Assessment Notes Sep, Body mass index (BMI) 27.0-27.9 , adult (ICD-10 - Z68.27) Patient has clearly made a good ike effort for several months on her own to lose weight with little success. Pt to start Adipex daily. Medication is a stimulant. May cause you to be jittery or constipated. Take in the morning, may also take stool softener daily as needed. Continue to eat a healthy well balanced diet and continue work-out regimine. Pt aware that this is not a cure for obesity but a tool used to help them during their weight loss plateau. Pt aware that they need to continue to work hard at weight loss or the weight will be regained. Side effects discussed and understood. Pt education printed and discussed. Pt notified of prescribing schedule with 30 day dispensing, no refills, for up to 12 weeks, with a 6 month break in-between treatments. Id SOB, CP, mood changes, tachycardia, HTN, headaches, blurred vision occur, go to ER and Follow-up with me immediately. [facility] Other Evaluation note 10-08-2022 Note Date & Type Note Facility 10-08-2022 Evaluation note Encounter Date Diagnosis Assessment Notes Sep, Body mass index (BMI) 27.0-27.9, adult (ICD-10 - Z68.27) Patient has clearly made a good ike effort for several months on her own to lose weight with little success. Pt to start Adipex daily. Medication is a stimulant. May cause you to be jittery or constipated. Take in the morning, may also take stool softener daily as needed. Continue to eat a healthy well balanced diet and continue work-out regimine. Pt aware that this is not a cure for obesity but a tool used to help them during their weight loss plateau. Pt aware that they need to continue to work hard at weight loss or the weight will be regained. Side effects discussed and understood. Pt education printed and discussed. Pt notified of prescribing schedule with 30 day dispensing, no refills, for up to 12 weeks, with a 6 month break in-between treatments. Id SOB, CP, mood changes, tachycardia, HTN, headaches, blurred vision occur, go to ER and Follow-up with me immediately. Sep, Overweight (BMI 25.0-29.9) (ICD-10 - E66.3) as above [facility] Other Evaluation note 09-10-2022 Note Date & Type Note Facility 09-10-2022 Evaluation note Encounter Date Diagnosis Assessment Notes Aug, Well adult exam (ICD-10 - Z00.00) We have discussed the necessity of following up with PCP regularly as well as specialists, as needed. Discussed F/U with dentistry and optometry at least yearly. Discussed all preventative measures/ cancer screenings as applicable to this patient. Emphasized the importance of a reduced fat, low carb diet to promote heart health and controlled blood sugars. Reviewed social history and ensured patient is safe within the home today. Pt denies any abuse of alcohol, nicotine, caffeine or recreational drugs. I have ensured patient is of stable mental and physical health today. We have discussed appropriate F/U schedule as well as blood work and vaccinations that apply. All questions answered and patient is sent home pleased, without concerns. Aug, Overweight (BMI 25.0-29.9) (ICD-10 - E66.3) Patient has clearly made a good ike effort for several months on her own to lose weight with little success. Pt to start Adipex daily. Medication is a stimulant. May cause you to be jittery or constipated. Take in the morning, may also take stool softener daily as needed. Continue to eat a healthy well balanced diet and continue work-out regimine. Pt aware that this is not a cure for obesity but a tool used to help them during their weight loss plateau. Pt aware that they need to continue to work hard at weight loss or the weight will be regained. Side effects discussed and understood. Pt education printed and discussed. Pt notified of prescribing schedule with 30 day dispensing, no refills, for up to 12 weeks, with a 6 month break in-between treatments. Id SOB, CP, mood changes, tachycardia, HTN, headaches, blurred vision occur, go to ER and Follow-up with me immediately. [facility] Other Evaluation + Plan note Note Date & Type Note Facility Evaluation + Plan note No data available for this section [facility] Evaluation note Note Date & Type Note Facility Evaluation note Diagnosis Onset Date Wellness examination [facility] Work Phone: History general Narrative - Reported Note Date & Type Note Facility History general Narrative - Reported Type Medical History Migraines Medical History PCOS/ insulin resistant Surgical History T & A 1982 Surgical History Ablation 2017 Surgical History Rhinoplasty 1989 Surgical History Left Breast, Lumpectomy 2000 [facility] Other Hospital Discharge instructions Note Date & Type Note Facility Hospital Discharge instructions No data available for this section [facility] Progress note Note Date & Type Note Facility Progress note No data available for this section [facility] Summary Purpose Family History Relationship Condition Age at Onset Recorded Date/T francine father Hypertension Unknown Advance Directives Advance Directive Response Recorded Date/ Time Advance Directives No August 25 1:37pm Chief Complaint and Reason for Visit Chief Complaint Wellness Reason for Visit Wellness examination Chief Complaint Wellness bee sting Reason for Visit Wellness examination Additional Source Comments INFORMATION SOURCE (unrecogn ized section and content) DATE CREATED AUTHOR 06/13/2022 [facility] DATE CREATED AUTHOR AUTHOR'S ORGANIZ ATION 09/14/2023 [facility] EPIC DATE CREATED AUTHOR AUTHOR'S ORGANIZ ATION 12/11/2023 [facility] REASON FOR VISIT (unrecogniz ed section and content) Wellness1 month Follow up1 m [facility] Follow upSICK, TESTING FOR COVID Care Teams (unrecognized sec tion and content) Personnel Name: MARILYNN SILVA MD Address: Address: [address] [place] [address] Team Status: Active Member Role Status Dates Marilynn Silva MD Primary Care Provider Active Team Status: Active Member Role Status Dates Marilynn Silva MD Primary Care Provide r, Attending Provider Active Start: August 21, 2023 Team Status: Inactive Member Role Status Dates Marilynn Silva MD Primary Care Provide r, Attending Provider Active Start: August 26, 2023 End: August 26, 2023 Team Status: Active Member Role Status Dates Marilynn Silva MD Primary Care Provider Active Start: September 10, 2023 Dallin Bond DO Attending Provider Active Start : September 10, 2023 Team Status: Inactive Member Role Status Dates Marilynn Silva MD Primary Care Provider Active Start: October 08, 2023 End: October 08, 2023 Sid Horner DO Attending Provider Active Sta rt: October 08, 2023 End: October 08, 2023 Goals (unrecognized section and content) Goals may be documented in a n alternate section FOR RECORDS PERTAINING TO PATIENTS WHO ARE OR HAVE BEEN ENROLLED IN A CHEMICAL DEPENDENCY/SUBSTANCEABUSE PROGRAM, SOME INFORMATION MAY BE OMITTED. This clinical summary was aggregated from multiple sources. Caution should be exercised in using it in the provision of clinical care. This summary normalizes information from multiple sources, and as a consequence, information in this document may materially change the coding, format and clinical context of patient data. In addition, data may be omitted in some cases. CLINICAL DECISIONS SHOULD BE BASED ON THE PRIMARY CLINICAL RECORDS. [facility]. provides no warranty or guarantee of the accuracy or completeness of information in this document.
[2024-01-07 09:31] LABS: HCG Qualitative Urine* NEGATIVE (NEGATIVE); Internal Control Within Normal Limits
[2024-01-07] MEDS: 0.9 % SODIUM CHLORIDE 500 ML 50 ML IV (09:48)
[2024-01-07 12:22] VITALS: BP 101/56; PULSE 71; TEMP 36.1; O2SAT 100
[2024-01-07 12:37] VITALS: BP 122/76; PULSE 75; TEMP 36.3; O2SAT 100
[2024-01-07 12:52] VITALS: BP 126/67; PULSE 86; O2SAT 94
== END 2024-01-07 12:52 | disposition home or self-care (01) ==
PROVIDERS: PCP Family Medicine; Visit Provider Surgery
PROC: (CPT 00812; principal; 2024-01-07 10:25)
DX: Z12.11 Encounter for screening for malignant neoplasm of colon (principal); D12.5 Benign neoplasm of sigmoid colon; E28.2 Polycystic ovarian syndrome; Z87.891 Personal history of nicotine dependence; E78.5 Hyperlipidemia, unspecified; I10 Essential (primary) hypertension
CPT/HCPCS: 00812; 45385; 36415; 84703; 88305; J2704

== ENCOUNTER 2024-08-16 12:30 | Outpatient (OUT) | payer BC, SELFPAY ==
[2024-08-16 12:53] LABS: Basophils Absolute Auto 0.1 10^3/uL (0.0-0.1); Basophils Percent Auto 0.7 % (0.2-2.0); Eosinophils Absolute Auto 0.1 10^3/uL (0.0-0.7); Eosinophils Percent Auto 1.6 % (0.9-7.0); Hematocrit 39.4 % (36.0-48.0); Hemoglobin 13.1 g/dL (12.0-16.0); Immature Granulocytes Abs Auto 0.02 10^3/uL (0.00-0.03); Immature Granulocytes Pct Auto 0.3 % (0.0-0.5); Lymphocytes Absolute Auto 2.8 10^3/uL (1.2-3.8); Lymphocytes Percent Auto 37.6 % (20.5-60.0); Mean Corpuscular HGB Conc 33.2 g/dL (29.9-35.2); Mean Corpuscular Hemoglobin 29.4 pg (26.7-34.0); Mean Corpuscular Volume 88.5 fL (81.0-99.0); Mean Platelet Volume 10.1 fL (9.5-13.5); Monocytes Absolute Auto 0.6 10^3/uL (0.3-0.8); Monocytes Percent Auto 8.7 % (1.7-12.0); Neutrophils Absolute Auto 3.8 10^3/uL (1.4-6.5); Neutrophils Percent Auto 51.1 % (43.0-75.0); Platelet Count 336 10^3/uL (150-450); Red Blood Count 4.45 10^6/uL (4.20-5.40); Red Cell Distribution Width 12.6 % (11.0-15.0); White Blood Count 7.4 10^3/uL (4.0-11.0)
[2024-08-16 13:01] LABS: Estimated Average Glucose 111 mg/dL; Glycohemoglobin A1C 5.5 % (4.5-6.2)
[2024-08-16 13:28] LABS: Alanine Aminotransferase 13 U/L (14-59); Albumin Globulin Ratio 1.2; Albumin Level 3.8 g/dL (3.4-5.0); Alkaline Phosphatase 78 U/L (46-116); Anion Gap 11.2; Aspartate Amino Transferase 15 U/L (15-37); BUN Creatinine Ratio 15.1; Bilirubin Total 0.9 mg/dL (0.2-1.0); Calcium 8.8 mg/dL (8.5-10.1); Carbon Dioxide 29.2 mmol/L (21.0-32.0); Chloride 105 mmol/L (98-107); Chol HDL Ratio 2.3; Cholesterol 134 mg/dL (<=200); Estimated GFR (African America >60 (>=60 mL/min/1.73m^2); Estimated GFR (Non-African Ame >60 (>=60 mL/min/1.73m^2); Globulin 3.3 g/dL; Glucose 87 mg/dL (74-106); HDL Cholesterol 59 mg/dL (40-60); LDL Cholesterol Calculated 63.8 mg/dL; Potassium 4.4 mmol/L (3.5-5.1); Sodium 141 mmol/L (136-145); TSH W/ REFLEX FT4 1.797 uIU/mL (0.358-3.740); Total Protein 7.1 g/dL (6.4-8.2); Triglycerides 56 mg/dL (<=150); VLDL CHOLESTEROL 11.2 mg/dL
== END 2024-08-16 12:31 | disposition home or self-care (01) ==
LOC: LAB 12:32
PROVIDERS: PCP Family Medicine; Visit Provider Family Medicine
DX: Z00.00 Encounter for general adult medical examination without abnormal findings (principal)
CPT/HCPCS: 36415; 80053; 80061; 83036; 84443; 85025

== ENCOUNTER 2024-08-25 11:20 | Outpatient (OUT) | payer BC, SELFPAY ==
--- NOTE | 2024-08-25 11:20 | XR_ITS ---
The [address] [address] Patient Name: PEG RHODES MRN: [id number] date: 1975 Sex: F Assigned Patient Location: [facility] Current Patient Location: [facility] Accession/Order Number: [id number] Exam Date: 08/25/2024 11:33 Report Date: 08/25/2024 11:40 At the request of: RUDY SILVA MD Procedure: XR sacrum coccyx min 2V SACRUM AND COCCYX - 3 4 views CLINICAL HISTORY: Patient fell last winter and has pain at the tailbone when sitting since. COMPARISON: None Lateral as well as AP views in upward and downward projection were obtained. There is slight deformity and posterior tilt of the coccyx on the lateral view which could be posttraumatic and related to the reported fall. No additional fractures or displacement are seen. The SI joints and sacral foramen appear intact. There is minor SI joint sclerosis. No soft tissue abnormalities are noted. XR/XR sacrum coccyx min 2V IMPRESSION: MINOR COCCYGEAL DEFORMITY THAT MAY RELATE TO THE REPORTED INJURY. THERE ARE NO PRIORS TO CONFIRM CHRONICITY. NO OTHER ACUTE FINDINGS. Impression dictated by: Brenda Bryan M.D. 08/25/2024 11:40 AM Dictation Location: [place] [address] Electronically authenticated by: [id number] Y Date: 08/25/2024 11:40
--- OUTSIDE RECORDS SUMMARY | 2024-08-25 11:22 | XMS_ITS | Clinical Summary ---
Author Organization [facility] Address [address] [place], [place] [address] Care Team Providers Care Cleaner Housekeeping Name Role Phone Unavailable Primary Care Provider Unavailabl e Allergies Active Allergy Reactions Criticality Noted Date Comments Nkda, No Latex Allergy [Other] 03/01 Medications TYLENOL 325MG CAPLET as necessary 0 03/01/2003 Active CLOMID 50MG TABLET 3tabs QD 0 09/30/2003 Active Family History Medical History Relation Comments Hypertension Father and hypothyroidi sm also Cancer Maternal Grandfather bone cancer Relation Status Comments Father Maternal Grandfather Social History Tobacco Use Types Packs/Day Years Used Date Smoking Tobacco: Never Alcohol Use Standard Drinks/Week Comments No 0 (1 standard drink = 0.6 oz pur e alcohol) Comments No Sex and Gender Information Value Date Recorded Sex Assigned at Not on file Legal Sex Female 10:01 AM EST Gender Identity Not on file Sexual Orientation Not on file Last Filed Vital Signs Vital Sign Reading Time Taken Comments Blood Pressure 106/70 03/01/2003 11:00 AM EST Pulse - - Temperature - - Respiratory Rate - - Oxygen Saturation - - Inhaled Oxygen Concentration - - Weight 64.4 kg (142 lb) 03/01/2003 11:00 AM EST Height 162.6 cm (5' 4 ) 03/01/2003 11:00 AM EST Body Mass Index 24.37 03/01/2003 11:00 AM EST Plan of Treatment Health Maintenance Due Date Last Done Comments Anxiety Screening 05/30/1991 Depression Screening 05/30/1991 HIV Screening 05/30/1991 Hepatitis C Screening 05/30/1991 DTaP,Tdap,Td Vaccine (1 - Tdap) 1992 Hepatitis B Vaccine (1 of 3 - 19+ 3-dose series) 05/29 Cervical Cancer Screening 03/01/2006 03/01/[address] Colonography 2018 Cologuard (FIT-DNA) 2018 Colonoscopy 2018 Colorectal Cancer Screening 2018 Diabetes Screening 2018 Fecal Occult Blood 2018 Lipid Screening 2018 Sigmoidoscopy 2018 Pneumococcal Vaccine: 50+ (1 of 1 - PCV) 05/30/2023 Shingrix Vaccine (1 of 2) 05/30/2023 Covid-19 Vaccine (1 - season) 2023 Influenza Vaccine (Season Ended) 2024 Procedures Procedure Name Priority Date/Time Associated Diagnosis Comments PAP FLUID CERVICAL SCREENING Routine 03/01/2003 12:06 PM EST Gynecologic Examination Female Infertility URIN TRACT INFECTION NOS from Last 3 Months or Most Recently Relevant to Health Maintenance Results * PAP FLUID CERVICAL SCREENING (03/01/2003 12:06 PM EST) Stock Room Manager Specimen #: [id number] Physician: ALY SEPULVEDA ([id number]) SPECIMEN SUBMITTED A: CERVICAL,SCREENING, FLUID FINAL DIAGNOSIS A.CERVICAL,SCREENIN G,FLUID SATISFACTORY FOR INTERPRETATION. NEGATIVE FOR INTRAEPITHELIAL LESION OR MALIGNANCY. This specimen has been analyzed by the BrozengoPrep Imaging System (t-Art), an automated imaging and review system, which assists the laboratory in evaluating cells on ThinPrep Pap tests. Following automated imaging, selected craig from every slide are reviewed by a cleaner wall and/or pathologist. Emilee ALEGRE (ASCP) Electronic Signature CLINICAL DATA Date of Last Menstrual Period: 02/03/2003 Clinical History: ROUTINE Additional Testing: Reflex HPV testing for ASCUS result Henry Keith M.D. Garden Labourer : 1975 (Age: 27) F Date of Report: 03/07/2003 Date of Procedure: 03/01/2003 Date of Receipt: 03/03/2003 Submitted by: ALY SEPULVEDA ([id number]) Location: A81 [facility] CERVICAL / Unknown 12:06 PM EST 03/03/2003 11:57 AM EST us Aly Sepulveda MD CYTOLOGY Final Result Performing Organization Address City/State/[facility] de Phone Number [facility] [address] [phone] from Last 3 Months or Most Recently Relevant to Health Maintenance Insurance [employer] PPO
--- OUTSIDE RECORDS SUMMARY | 2024-08-25 11:22 | XMS_ITS | Encounter Summary ---
Author Organization [facility] Address [address] [facility] [place] [address] Care Team Providers Care As400 Consultant Name Role Phone Marilynn Schaefer MD Primary Care Provider [phone] Encounter Details Date Type Department Care Team (Late st Contact Info) Description 09/10/2023 Clinisync Result Encounter [facility] Unsolicited Ethan Bond, DO [address] [place], [id number] Social History Tobacco Use Types Packs/Day Years Used Date Smoking Tobacco: Never Assessed Comments No Sex and Gender Information Value Date Recorded Sex Assigned at Not on file Legal Sex Female 11:47 PM EDT Gender Identity Not on file Sexual Orientation Not on file documented as of this encounter Plan of Treatment Upcoming Encounters Date Type Department Care Team (Late st Contact Info) Description 09/14/2024 2:00 PM EDT Office Visit [facility] [address] [place] [phone] Ethan Bond, DO [address] [place] [address] documented as of this encounter Procedures Procedure Name Priority Date/Time Associated Diagnosis Comments IGP,APTIMA HPV,AGE GDLN Routine 09/10/2023 1:32 PM EDT MM TOMOSYNTHESIS SCREENING BI 09/10/2023 9:07 AM EDT documented in this encounter Results * IGP,APTIMA HPV,AGE GDLN (09/10/2023 1:32 PM EDT) AGE GDLN AC TESTING Note . [facility] Comment: TESTS RESULT FLAG UNITS REF RANGE LAB Clinician Provided Cytology Information Source.............Cervix;Endocervix No. of containers..01 ThinPrep Vial Age Mariamao RENATA Kay... FLAG LEGEND: L-Low Normal,H-High Normal,LL-Alert Low,HH-Alert High <-Panic Low,>-Panic High,A-Abnormal,AA-Critical Abnormal Performed at: 01 =G [address] [place] [address] Natividad Spencer MD, IGP, APTIMA HPV, RFX 16/18,45 Note . [facility] Comment: TESTS RESULT FLAG UNITS REF RANGE LAB DIAGNOSIS: 02 NEGATIVE FOR INTRAEPITHELIAL LESION OR MALIGNANCY. CELLULAR CHANGES ASSOCIATED WITH INFLAMMATION ARE PRESENT. Specimen adequacy: 02 Satisfactory for evaluation. Endocervical and/or squamous metaplastic cells (endocervical component) are present. Performed by: 02 Keagan Leung, Artistic Associate (ASCP) . 02 Note: Note 02 The Pap smear is a screening test designed to aid in the detection of premalignant and malignant conditions of the uterine cervix. It is not a diagnostic procedure and should not be used as the sole means of detecting cervical cancer. Both false-positive and false-negative reports do occur. Test Methodology: Note 02 This liquid based ThinPrep(R) pap test was screened with the use of an image guided system. HPV Genotype Reflex Note 02 Criteria not met, HPV Genotype not performed. FLAG LEGEND: L-Low Normal,H-High Normal,LL-Alert Low,HH-Alert High <-Panic Low,>-Panic High,A-Abnormal,AA-Critical Abnormal Performed at: [address] [place] [address] Natividad pSencer MD, HPV APTIMA Negative Negative [facility] Comment: This nucleic acid amplification test detects fourteen high- risk HPV types (16,18,31,33,35,39,45,51,52,56,58,59,66,68) without differentiation. Performed at: =[address] [id number] Cement Truck Driver: Natividad Spencer MD, Phone: [phone] Performed at: [address] [id number] Cement Truck Driver: Natividad Spencer MD, Phone: [phone] 09/10/2023 1:32 PM EDT 09/11/2023 7:22 AM EDT Narrative [facility] - 09/15/2023 4:09 PM EDT BRUSH-SPATULA CERVIX ENDOCERVIX us Ethan Bond DO LAB BLOOD ORDERABLES Final Resul t [facility] * MM TOMOSYNTHESIS SCREENING BI (09/10/2023 9:07 AM EDT) Anatomical Region Laterality Modality Other 09/10/2023 9:07 AM EDT Narrative 09/10/2023 9:08 [place] [address] Mammography Report Signed Patient: DORA TURNER MR#: [id number] : 1975 Acct:[id number] Age/Sex: 48 / F ADM Date: 09/10/23 Loc: MAMMO Attending Dr: Ethan Bond D.O. Ordering Physician: Ethan Bond D.O. Results: Date of Service: 09/10/23 Follow Up: Procedure(s): MM tomosynthesis screening BI Accession Number(s): [id number] cc: Marilynn Schaefer M.D.; Ethan Bond D.O. Patient Name: DORA TURNER MR#: [id number] : 1975 Exam Date: 09/10/2023 Ordering Doctor: DR Ethan Bond . RADIOLOGY REPORT PROCEDURE: MM TOMOSYNTHESIS SCREENING BI COMPARISON: MG MAMM SCREEN 3D LOLLY CAD, 09/05/2021. MG MAMM SCREEN 3D LOLLY CAD, 09/04/2020. MG MAMM LOLLY SCRN W CAD DIG, 06/07/2004. MM TOMOSYNTHESIS SCREENING BI, 09/09/2022. INDICATIONS: Screening Calculator Name NCI Breast Cancer Risk Assessment Tool 5 Year Breast Cancer Risk 0.90% Lifetime Breast Cancer Risk 8.60% Personal Breast Cancer No Personal Ovarian Cancer No Treatments None Family Cancers None LOCATION: [facility] BREAST COMPOSITION: The breasts are heterogeneously dense,which may obscure small masses. FINDINGS: DIAGNOSTIC CATEGORY 2--BENIGN FINDING: RIGHT BREAST: No significant suspicious finding. Increased breast density bilaterally. LEFT BREAST: No significant suspicious finding. Increased breast density bilaterally suggesting hormonal changes. RECOMMENDATIONS: ROUTINE MAMMOGRAM AND CLINICAL EVALUATION IN 12 MONTHS. PLEASE NOTE: A NORMAL MAMMOGRAM DOES NOT EXCLUDE THE POSSIBILITY OF BREAST CANCER. A CLINICALLY SUSPICIOUS PALPABLE LUMP SHOULD BE BIOPSIED. Dictated by: Jose Mejia M.D. on 09/10/2023 at 09:02 Approved by: Jose Mejia M.D. on 09/10/2023 at 09:07 Dictated By: Jose Mejia M.D. Signed By: 09/10/2308 DD/ 6 TD/TT: Mill[place] Supervisor: Procedure Note Radiology, Radiologist, MD - 09/10/2023 [address] [place] [id number] Mammography Report Signed Patient: DORA TURNER R#: [id number] : 1975Acct:[id number] Age/Sex: 48 / FADM Date: 09/10/23 Loc: MAMMO Attending Dr: Ethan Bond D.O. Ordering Physician: Ethan Bond D.O.Results: Date of Service: 09/10/23Follow Up: Procedure(s): MM tomosynthesis screening BI Accession Number(s): [id number] cc: Marilynn Schaefer M.D.; Ethan Bond D.O. Patient Name: DORA TURNER MR#: [id number] : 1975 Exam Date: 09/10/2023 Ordering Doctor: DR Ethan Bond . RADIOLOGY REPORT PROCEDURE: MM TOMOSYNTHESIS SCREENING BI COMPARISON: MG MAMM SCREEN 3D LOLLY CAD, 09/05/2021. MG MAMM SCREEN 3DBIL CAD, 09/04/2020. MG MAMM LOLLY SCRN W CAD DIG, 06/07/2004. MM TOMOSYNTHESIS SCREENING BI, 09/09/2022. INDICATIONS: Screening Calculator Name NCI Breast Cancer Risk Assessment Tool 5 Year Breast Cancer Risk 0.90% Lifetime Breast Cancer Risk 8.60% Personal Breast Cancer No Personal Ovarian Cancer No Treatments None Family Cancers None LOCATION: [facility] BREAST COMPOSITION: The breasts are heterogeneously dense,which may obscure small masses. FINDINGS: DIAGNOSTIC CATEGORY 2--BENIGN FINDING: RIGHT BREAST: No significant suspicious finding. Increased breastdensity bilaterally. LEFT BREAST: No significant suspicious finding. Increased breast density bilaterally suggesting hormonal changes. RECOMMENDATIONS: ROUTINE MAMMOGRAM AND CLINICAL EVALUATION IN 12 MONTHS. PLEASE NOTE: A NORMAL MAMMOGRAM DOES NOT EXCLUDE THE POSSIBILITY OFBREAST CANCER. A CLINICALLY SUSPICIOUS PALPABLE LUMP SHOULD BE BIOPSIED. Dictated by: Jose Mejia M.D. on 09/10/2023 at 09:02 Approved by: Jose Mejia M.D. on 09/10/2023 at 09:07 Dictated By: Jose Mejia M.D. Signed By:09/10/2308 DD/ 6 TD/TT: [place] Supervisor: us Ethan Ronda DO [facility] Final Result documented in this encounter Visit Diagnoses Not on filedocumented in this encounter Care Teams As400 Consultant Relationship Specialty Start Date End Date Marilynn Schaefer MD PCP - General Family Medicine 09/10/23 documented as of this encounter
--- OUTSIDE RECORDS SUMMARY | 2024-08-25 11:22 | XMS_ITS | Encounter Summary ---
Author Organization [facility] Address [address] [place], [place] [address] Care Team Providers Care Tubular Riveter Name Role Phone Theresa Jolly REGISTERED RADIOLOGIC TECHNOLOGIST Primary Care Provider Unavailabl e Source Comments In the event this information is protected by the Federal Confidentiality of Alcohol and Drug AbusePatient Records regulations: The Federal rules restrict any use of the information to criminally investigate or prosecute any alcohol or drug abuse patient.[facility] Encounter Details Date Type Department Care Team (Latest Contact Info) Description 10/02/2003 Prob Sum Review Provider, Chaya Social History Tobacco Use Types Packs/Day Years [...] as of this encounter Plan of Treatment Not on file documented as of this encounter Visit Diagnoses Not on filedocumented in this encounter Care Teams Tubular Riveter Relationship Specialty Start Date End Date Theresa Jolly APRN PCP - General 04/01/03 12/24/04 documented as of this encounter
--- OUTSIDE RECORDS SUMMARY | 2024-08-25 11:22 | XMS_ITS | Clinical Summary ---
Author Organization [employer] [facility] Address [id number] [address] [place] [address] Care Team Providers Care Director Machine Name Role Phone Unavailable Primary Care Provider Unavailabl e Social History Tobacco Use Types Packs/Day Years Used Date Smoking Tobacco: Never Assessed Childcare Answer Date Recorded Childcare Unknown 10/18/2019 Employment Answer Date Recorded Employment Unknown 10/18/2019 Purpose - Life Answer Date Recorded Purpose and direction in life Unknown Comments Unknown Sex and Gender Information Value Date Recorded Sex Assigned at Not on file Legal Sex Female 2:38 PM EDT Gender Identity Not on file Sexual Orientation Not on file Plan of Treatment Health Maintenance Due Date Last Done Comments Depression Screening 1985 Tobacco Screening 1985 Adult BMI Screening 05/30/1991 DTaP,Tdap and Td Vaccines (1 - Tdap) 1992 Pap Smear 1994 Zoster (Shingles) Vaccine (1 of 2) 05/30/2023 Influenza Vaccine 10/25/2024 Medical Devices Not on file
--- OUTSIDE RECORDS SUMMARY | 2024-08-25 11:22 | XMS_ITS | Encounter Summary ---
Author Organization [facility] Address [address] [facility] [place] [address] Care Team Providers Care Lcac Radar Operator/Navigator Name Role Phone Marilynn Schaefer MD Primary Care Provider [phone] Encounter Details Date Type Department Care Team (Late st Contact Info) Description 09/02/2023 Orders Only [facility] [address] [place] [address] Serena Benjamin LPN [address] [employer] [facility] [place] [address] Social History Tobacco Use Types Packs/Day Years Used Date Smoking Tobacco: Never Assessed Comments Unknown Sex and Gender Information Value Date Recorded Sex Assigned at Not on file Legal Sex Female 11:47 PM EDT Gender Identity Not on file Sexual Orientation Not on file documented as of this encounter Plan of Treatment Upcoming Encounters Date Type Department Care Team (Late st Contact Info) Description 09/14/2024 2:00 PM EDT Office Visit [facility] [address] [place] [address] Ethan Bond DO [address] [facility] [place] [id number] documented as of this encounter Procedures Procedure Name Priority Date/Time Associated Diagnosis Comments PAP SMEAR Routine 06/04/2022 12:00 AM EDT documented in this encounter Results * Pap Smear (06/04/2022 12:00 AM EDT) Swab Cervical swab / Unknown us Ronda Nurse [facility] CYTOLOGY ORDERABLES Final Result EXTERNAL LAB documented in this encounter Visit Diagnoses Not on filedocumented in this encounter Care Teams Lcac Radar Operator/Navigator Relationship Specialty Start Date End Date Marilynn Schaefer MD PCP - General Family Medicine 09/10/23 documented as of this encounter
--- OUTSIDE RECORDS SUMMARY | 2024-08-25 11:22 | XMS_ITS | Clinical Summary ---
Author Organization [facility] Address [address] [facility] [place] [address] Care Team Providers Care Food Tray Assembler Name Role Phone Marilynn Schaefer MD Primary Care Provider [phone] Allergies No known active allergies Medications tiZANidine (Zanaflex) 2 MG tablet Take 1 tablet by mouth every 8 (eight) hours if needed 08/25/2023 Active ZOLMitriptan (Zomig) 5 MG nasal solution 1 (one) time each day at the same time Active metFORMIN XR (Glucophage-XR) 500 MG 24 hr tabletIndicatio ns:Encounter for weight management TAKE ONE TABLET BY MOUTH EVERY EVENING WITH A MEAL 90 tablet 3 06/22/2024 Active Encounters Date Type Department Care Team Description 06/21/2024 Refill [facility] OB [address] [facility] [id number] Ethan Bond DO Encounter for weight management from Last 3 Months Social History Tobacco Use Types Packs/Day Years Used Date Smoking Tobacco: Never Assessed Comments No Sex and Gender Information Value Date Recorded Sex Assigned at Not on file Legal Sex Female 11:47 PM EDT Gender Identity Not on file Sexual Orientation Not on file Last Filed Vital Signs Vital Sign Reading Time Taken Comments Blood Pressure 110/72 09/10/2023 1:44 PM EDT Pulse - - Temperature - - Respiratory Rate - - Oxygen Saturation - - Inhaled Oxygen Concentration - - Weight 57.2 kg (126 lb) 09/10/2023 1:44 PM EDT Height 162.6 cm (5' 4 ) 09/10/2023 1:44 PM EDT Body Mass Index 21.63 09/10/2023 1:44 PM EDT Plan of Treatment Upcoming Encounters Date Type Department Care Team (Late st Contact Info) Description 09/14/2024 2:00 PM EDT Office Visit [facility] [address] [facility] [place] [address] Ethan Bond, DO [address] [facility] [place] [address] Health Maintenance Due Date Last Done Comments CT Colonography 1973 Colonoscopy 1973 Colorectal Cancer Screening 1975 FIT-DNA 1975 FIT 1975 FOBT 1975 Sigmoidoscopy 1975 HPV/Cotest 05/30/2003 Mammogram 09/09/2024 09/10/2023 Influenza Vaccine (Season Ended) 2024 Cervical Cancer Screening 06/04/2025 Pap Smear 06/04/2025 06/04/2022 Procedures Procedure Name Priority Date/Time Associated Diagnosis Comments MM TOMOSYNTHESIS SCREENING BI 09/10/2023 9:07 AM EDT PAP SMEAR Routine 06/04/2022 12:00 AM EDT from Last 3 Months or Most Recently Relevant to Health Maintenance Results * MM TOMOSYNTHESIS SCREENING BI (09/10/2023 9:07 AM EDT) Anatomical Region Laterality Modality Other 09/10/2023 9:07 AM EDT Narrative 09/10/2023 9:08 AM EDT The [address] [address] Mammography Report Signed Patient: DORA TURNER MR#: [id number] : 1975 Acct:[id number] Age/Sex: 48 / F ADM Date: 09/10/23 Loc: MAMMO Attending Dr: Ethan Bond D.O. Ordering Physician: Ethan Bond D.O. Results: Date of Service: 09/10/23 Follow Up: Procedure(s): MM tomosynthesis screening BI Accession Number(s): [id number] cc: Marilynn Schaefer M.D.; Ethan Bond D.O. Patient Name: DORA TURNER MR#: [id number] : 1975 Exam Date: 09/10/2023 Ordering Doctor: [...] Treatments None Family Cancers None LOCATION: [facility] BREAST COMPOSITION: The breasts are heterogeneously [...] Dictated By: Jose Mejia M.D. Signed By: 09/10/23 0908 DD/ TD/TT: Newspaper Vendor: Procedure Note Radiology, Radiologist, MD - 09/10/2023 [place] [address] Mammography Report Signed Patient: DORA TURNER JMR#: [id number] : 1975Acct:[id number] Age/Sex: 48 / FADM Date: 09/10/23 Loc: MAMMO Attending Dr: Ethan Bond D.O. Ordering Physician: Ethan Bond D.O.Results: Date of Service: 09/10/23Follow Up: Procedure(s): MM tomosynthesis screening BI Accession Number(s): [id number] cc: Marilynn Schaefer M.D.; Ethan Bond D.O. Patient Name: DORA TURNER MR#: [id number] : 1975 Exam Date: 09/10/2023 Ordering Doctor: [...] Treatments None Family Cancers None LOCATION: [facility] BREAST COMPOSITION: The breasts are heterogeneously [...] Mejia M.D. Signed By:09/10/2308 DD/ 6 TD/TT: Newspaper Vendor: us Ethan Bond DO [facility] Final Result * Pap Smear (06/04/2022 12:00 AM EDT) Swab Cervical swab / Unknown Ronda Nurse [facility] CYTOLOGY ORDERABLES Final Result EXTERNAL LAB from Last 3 Months or Most Recently Relevant to Health Maintenance Insurance [employer] Care Teams Food Tray Assembler Relationship Specialty Start Date End Date Marilynn Schaefer MD PCP - General Family Medicine 09/10/23
== END 2024-08-25 11:21 | disposition home or self-care (01) ==
LOC: RAD 11:20
PROVIDERS: PCP Family Medicine; Visit Provider Family Medicine
DX: M53.3 Sacrococcygeal disorders, not elsewhere classified (principal)
CPT/HCPCS: 72220

== ENCOUNTER 2024-09-13 08:30 | Outpatient (OUT) | payer BC, SELFPAY ==
--- OUTSIDE RECORDS SUMMARY | 2024-09-13 08:32 | XMS_ITS | Encounter Summary ---
Author Organization [facility] Address [address] [place], [place] [id number] Care Team Providers Care Carrier Washer Name Role Phone Theresa Jolly CRIMPING MACHINE OPERATOR Primary Care Provider Unavailabl e Source Comments In the event this information is protected by the Federal Confidentiality of Alcohol and Drug AbusePatient Records regulations: The Federal rules restrict any use of the information to criminally investigate or prosecute any alcohol or drug abuse patient.[facility] Encounter Details Date Type Department Care Team [...] on filedocumented in this encounter Care Teams Carrier Washer Relationship Specialty Start Date End Date Theresa Jolly APRN PCP - General 04/01/03 12/24/04 documented as of this encounter
--- OUTSIDE RECORDS SUMMARY | 2024-09-13 08:32 | XMS_ITS | Clinical Summary ---
Author Organization [facility] Address [address] [place], [place] [id number] Care Team Providers Care Busboy Name Role Phone Unavailable Primary Care Provider [...] of 2) 05/30/2023 Covid-19 Vaccine (1 - 2023- season) 2023 Influenza Vaccine (#1) 2024 Procedures Procedure Name Priority Date/Time Associated Diagnosis Comments PAP FLUID CERVICAL SCREENING Routine 03/01/2003 12:06 PM EST Gynecologic Examination Female Infertility URIN TRACT INFECTION NOS from Last 3 Months or Most Recently Relevant to Health Maintenance Results * PAP FLUID CERVICAL SCREENING (03/01/2003 12:06 PM EST) Folding Machine Setter Specimen #: [id number] Physician: ALY SEPULVEDA ([id number]) SPECIMEN SUBMITTED A: CERVICAL,SCREENING, FLUID FINAL DIAGNOSIS A.CERVICAL,SCREENIN G,FLUID SATISFACTORY FOR INTERPRETATION. NEGATIVE FOR INTRAEPITHELIAL LESION OR MALIGNANCY. This specimen has been analyzed by the UNI5Prep Imaging System (Voxie), an automated imaging and review system, which assists the laboratory in evaluating cells on ThinPrep Pap tests. Following automated imaging, selected craig from every slide are reviewed by a exchange teller and/or pathologist. Emilee ALEGRE (ASCP) Electronic Signature CLINICAL DATA Date of Last Menstrual Period: 02/03/2003 Clinical History: ROUTINE Additional Testing: Reflex HPV testing for ASCUS result Henry Keith M.D. Personnel Security Specialist : 1975 (Age: 27) F Date of Report: 03/07/2003 Date of Procedure: 03/01/2003 Date of Receipt: 03/03/2003 Submitted by: ALY SEPULVEDA ([id number]) Location: A81 [facility] CERVICAL / Unknown 12:06 PM EST 03/03/2003 11:57 AM EST us Aly Sepulveda MD CYTOLOGY Final Result Performing Organization Address City/State/[facility] de Phone Number [facility] [address] [place] [phone] from Last 3 Months or Most Recently Relevant to Health Maintenance Insurance [employer] P[employer]
--- NOTE | 2024-09-13 08:33 | MM_ITS ---
Patient Name: PEG RHODES MR#: [id number] : 1975 Exam Date: 09/13/2024 Ordering Doctor: DR RUDY SILVA M.D. CORRECTION Corrected on: 09/15/2024; RADIOLOGY REPORT PROCEDURE: MM TOMOSYNTHESIS SCREENING BI COMPARISON: MM TOMOSYNTHESIS SCREENING BI, 09/10/2023. MM TOMOSYNTHESIS SCREENING BI, 09/09/2022. MG MAMM SCREEN 3D LOLLY CAD, 09/05/2021. MG MAMM LOLLY SCRN W CAD DIG, 06/07/2004. INDICATIONS: Screening Calculator Name NCI Breast Cancer Risk Assessment Tool 5 Year Breast Cancer Risk 1.00% Lifetime Breast Cancer Risk 8.50% Personal Breast Cancer No Personal Ovarian Cancer No Treatments None Family Cancers None LOCATION: [facility] BREAST COMPOSITION: The breasts are heterogeneously dense, which may obscure small masses. FINDINGS: DIAGNOSTIC CATEGORY 0--INCOMPLETE: NEED ADDITIONAL IMAGING EVALUATION. RIGHT BREAST: No significant suspicious finding. LEFT BREAST: MASS (finding with convex borders visible on two orthogonal views), characterized by benign macrolobulated morphology, obscured indeterminate morphology, posterior depth, 7 cm, from nipple Upper outer quadrant. 1.1 cm size RECOMMENDATIONS: ADDITIONAL MAMMOGRAPHIC VIEWS REQUIRED: LEFT BREAST - ULTRASOUND: LEFT BREAST Recommend spot compression views and targeted breast US PLEASE NOTE: A NORMAL MAMMOGRAM DOES NOT EXCLUDE THE POSSIBILITY OF BREAST CANCER. A CLINICALLY SUSPICIOUS PALPABLE LUMP SHOULD BE BIOPSIED. Dictated by: Raji Díaz MD on 09/13/2024 at 12:41 Approved by: Raji Díaz MD on 09/13/2024 at 12:49 Dictated by: Raji Díaz MD on 09/15/2024 at 09:55 Approved by: Raji Díaz MD on 09/15/2024 at 09:55
--- OUTSIDE RECORDS SUMMARY | 2024-09-13 08:53 | XMS_ITS | CCD ---
Author Organization [facility] CliniSymo Care Team Providers Care Remote Sensing Engineer Name Role Phone DR MARILYNN SILVA Primary Care Unavailable ESME, DALLIN Admitting Unavailable ESME, DALLIN Attending Unavailable ESME, DALLIN Consulting Unavailable SILVA, DR MARILYNN Bales Primary Care Unavailable WEST, DR BONG Rasheed Consulting Unavailable ESME, DALLIN Admitting Unavailable ESME, DALLIN Attending Unavailable ESME, DALLIN Consulting Unavailable ESME, DALLIN Admitting Unavailable SILVA, DR MARILYNN Bales Primary Care Unavailable ESME, DALLIN Attending Unavailable ESME, DALLIN Consulting Unavailable WEST, DR BONG Rasheed Consulting Unavailable ESME, DALLIN Admitting Unavailable ESME, DALLIN Attending Unavailable SILVA, DR MARILYNN Bales Primary Care Unavailable ESME, DALLIN Consulting Unavailable WEST, DR BONG Rasheed Consulting Unavailable ESME, DALLIN Admitting Unavailable ESME, DALLIN Attending Unavailable RICARDO, DR MARILYNN Bales Primary Care Unavailable ESME, DALLIN Consulting Unavailable SILVA, DR MARILYNN Bales Primary Care Unavailable SILVA, DR MARILYNN Bales Admitting Unavailable SILVA, DR MARILYNN Bales Attending Unavailable RICARDO, DR MARILYNN Bales Consulting Unavailable Marilynn Silva Unavailable ESME, DALLIN Attending Unavailable MARILYNN SILVA Primary Care Physician [phone] Eleno Lund MD Attending Provider [phone] Eleno Lund Attending Unavailable Eleno Lund Admitting Unavailable Eleno LUND Attending Unavailable SID HORNER Unavailable Eleno LUND Attending Unavailable Eleno LUND Attending Unavailable Marilynn Silva MD Primary Care Provider Marilynn Silva MD Attending Provider Allergies Allergy Classification Reported Allergen(s) Allergy Type Date of Onset Reaction(s) Facility (1 source) No Known Medication Allergies; Translations: [No Known Medication Allergies] Propensity to adverse reactions (disorder) [facility] Medications Current Medications Medication Drug Class(es) Dates Sig (Normalized) Sig (Original) azithromycin 250 mg oral tablet (1 source) Macrolide Antimicrobial Start: 01-06-2023 Azithromycin 250 MG as directed Orally 2 tabs po today, then 1 tab daily x 4 more days for 5 13 Dec, 2022 Active metFORMIN (9 sources) Biguanide Start: 11-24-2023 metformin Refills(s) 0 Start Date: 11/24/23 Status: Ordered Start: 08-25-2023 take 1 tablet by taar th once daily Metformin 500 mg tablet Active 1 TAB PO Daily August 25, 2023 12:00am FreeTextSi tablet with a meal Orally Once a day; Note: Source Status: Taking; Provider: Ricardo Subramanian ( ) Complies with drug therapy take 1 tablet by tara th every [...] day for 30 days Aug, Active tizanidine (9 sources) Central alpha-2 Adrenergic Agonist Start: 11-24-2023 tizanidine Refills(s ) 0 Start Date: 11/24/23 Status: Ordered Start: 08-25-2023 take 1 tablet by tara th three times daily as needed Tizanidine 2 mg tablet Active 1 TAB PO Three times daily August 25, 2023 12:00am FreeTextSi tablet as needed Orally Three times a day; Note: Source Status: Taking; Provider: Ricardo Subramanian ( ) Complies with drug therapy take 1 tablet by tara th every eight hours tiZANidine HCl 2 MG 1 tablet as needed Orally Three times a day Active Zomig (6 sources) Serotonin-1b and Serotonin-1d Receptor Agonist Start: 11-24-2023 Zomig Refills(s) 0 S tart Date: 11/24/23 Status: Ordered Start: 08-26-2023 take 1 spray(s) nasa l route every two hours as needed Zolmitriptan (Zomig) 5 mg spray,non-aerosol Active 1 SPRAY INTRANASAL Every 2 hours as needed August 26, 2023 12:00am administer into one nostril (only); alternate nostrils; do not exceed 10 mg /24 hrs Complies with drug therapy Zomig 5 MG 1 spr ay at onset of headache may repeat after 2 hours up to 10 mg per 24 hours as needed Nasally Once a day Active Zolmitriptan (Zomig) 5 mg spray,non-aerosol (3 sources) Start: 08-26-2023 take 1 spray(s) nasal route every two hours as needed Zolmitriptan (Zomig) 5 mg spray,non-aerosol Active 1 SPRAY INTRANASAL Every 2 hours as needed August 25, 2023 11:00pm administer into one nostril (only); alternate nostrils; do not exceed 10 mg /24 hrs Start: 08-26-2023 take 1 spray(s) nasa l route every two hours Zolmitriptan (Zomig) 5 mg spray,non-aerosol Active 1 SPRAY INTRANASAL Every 2 hours August 26, 2023 12:00am administer into one nostril (only); alternate nostrils; do not exceed 10 mg /24 hrs Completed/Discontinued Medications Medication Drug Class(es) Dates Sig (Normalized) Sig (Original) cephalexin 500 mg oral capsule (2 sources) Cephalosporin Antibacterial Start: 10-08-2023 End: 08-25-2024 take 1 capsule by mouth three times daily Cephalexin 500 mg capsule Discontinued 500 MG PO Three times daily 13 09October 08, 2023 12:00am August 25, 2024 10:32am predniSONE 10 mg oral tablet (2 sources) Start: 10-08-2023 End: 08-25-2024 Prednisone 10 mg tablet Discontinued 10 MG PO As Directed 11 11October 08, 2023 12:00am August 25, 2024 10:32am 1 tab tid w/ food x 3 days, then bid w/ food x 3 days, then qd w/ food x 3 days Problems Active Problems Problem Classification Problem Date [...] conditions (not mental disorders or infectious disease) (15 sources) Encounter for screening for malignant neoplasm [...] finding; Translations: [Other specified postprocedural states] Episodic Spondylosis; intervertebral disc disorders; other back problems (5 sources) Cervico-occipital neuralgia; Translations: [Occipital neuralgia] Onset: 02-02-2015 08-25-2024 Episodic Unclassified (1 source) Patient encounter status [...] breast] Onset: 05-22-2006 Resolved: 11-24-2023 11-24-2023 Chronic Results Test Name Value Interpretation Reference Range Facility Basophils Auto (Bld) [#/Vol] Ordered By: Marilynn Silva on 08-16-2024 Basophils (Bld) [#/Vol] 0.1 10 3/uL 0.0-0.1 [facility] Basophils/100 WBC Auto (Bld) Ordered By: Marilynn Silva on 08-16-2024 Basophils/100 WBC (Bld) 0.7 % 0.2-2.0 [facility] Cholesterol in LDL Calc [Mas s/Vol]Ordered By: Marilynn Silva on 08-16-2024 Cholesterol in LDL [Mass/Vol] 63.8 mg/dL [facility] Comment on above: <100 mg/dl [id number] 0-129 mg/dl NEAR OR ABOVE [id number] mg/dl BORDERLINE [id number] mg/dl HIGH>190 mg/dl VERY HIGH Cholesterol in VLDL Calc [Ma ss/Vol]Ordered By: Marilynn Silva on 08-16-2024 Cholesterol in VLDL [Mass/Vol] 11.2 mg/dL [facility] Eosinophils/100 WBC Auto (Bl d)Ordered By: Marilynn Silva on 08-16-2024 Eosinophils/100 WBC (Bld) 1.6 % 0.9-7.0 [facility] Erythrocyte distribution wid th Auto (RBC) [Ratio]Ordered By: Marilynn Silva on 08-16-2024 Erythrocyte distribution width (RBC) [Ratio] 12.6 % 11.0-15.0 [facility] Estimated glomerular filtrat ion rate (GFR) non- AmericanOrdered By: Marilynn Silva on 08-16-2024 GFR/1.73 sq M.predicted among non-blacks MDRD (S/P/Bld) [Vol rate/Area] mL/min/{1.73_m2} >=60 mL/min/1.73 m 2 [facility] Globulin Calc (S) [Mass/Vol] Ordered By: Marilynn Silva on 08-16-2024 Globulin (S) [Mass/Vol] 3.3 g/dL [facility] Glucose mean value [Mass/vol ume] in Blood Estimated from glycated hemoglobinOrdered By: Marilynn Silva on 08-16-2024 Average glucose Estimated from glycated hemoglobin (Bld) [Mass/Vol] 111 mg/dL [facility] Hematocrit Auto (Bld) [Volum e fraction]Ordered By: Marilynn Silva on 08-16-2024 Hematocrit (Bld) [Volume fraction] 39.4 % 36.0-48.0 [facility] Hemoglobin A1c percentageOrd ered By: Marilynn Silva on 08-16-2024 HbA1c (Bld) [Mass fraction] 5.5 % 4.5-6.2 [facility] Comment on above: ADA RECOMMENDED LIMI T 4.0 - 6.0ADA THERAPEUTIC TARGET < 7.0ACTION SUGGESTED> 7.0 Hemoglobin [Mass/volume] in BloodOrdered By: Marilynn Silva on 08-16-2024 Hemoglobin (Bld) [Mass/Vol] 13.1 g/dL 12.0-16.0 [facility] Laboratory - Chemistry and C hemistry - challengeOrdered By: Marilynn Silva on 08-16-2024 Albumin [Mass/Vol] 3.8 g/dL 3.4-5.0 [facility] ALP [Catalytic activity/Vol] 78 U/L 46-116 [facility] ALT [Catalytic activity/Vol] 13 U/L Low 14-59 [facility] AST [Catalytic activity/Vol] 15 U/L 15-37 [facility] Bilirubin [Mass/Vol] 0.9 mg/dL 0.2-1.0 [facility] Calcium [Mass/Vol] 8.8 mg/dL 8.5-10.1 [facility] Chloride [Moles/Vol] 105 mmol/L 98-107 [facility] Cholesterol [Mass/Vol] 134 mg/dL <=200 [facility] Cholesterol in HDL [Mass/Vol] 59 mg/dL 40-60 [facility] Comment on above: > or =60 mg/dl - LOW CARDIOVASCULAR RISK<40 mg/dl - HIGH CARDIOVASCULAR RISK CO2 [Moles/Vol] 29.2 mmol/L 21.0-32.0 [facility] Creatinine [Mass/Vol] 0.86 mg/dL 0.55-1.02 [facility] GFR/1.73 sq M.predicted MDRD (S/P/Bld) [Vol rate/Area] mL/min/{1.73_m2} >=60 mL/min/1.73 m 2 [facility] Glucose [Mass/Vol] 87 mg/dL 74-106 [facility] Potassium [Moles/Vol] 4.4 mmol/L 3.5-5.1 [facility] Protein [Mass/Vol] 7.1 g/dL 6.4-8.2 [facility] Sodium [Moles/Vol] 141 mmol/L 136-145 [facility] Triglyceride [Mass/Vol] 56 mg/dL <=150 [facility] TSH Qn 1.797 m[IU]/L 0.358-3.740 [facility] Urea nitrogen [Mass/Vol] 13.0 mg/dL 7.0-18.0 [facility] Urea nitrogen/Creatinine [Mass ratio] 15.1 mg/mg [facility] Laboratory - Hematology and Cell countsOrdered By: Marilynn Silva on 08-16-2024 Immature granulocytes/100 WBC (Bld) 0.3 % 0.0-0.5 [facility] Leukocytes [#/volume] correc minerva for nucleated erythrocytes in Blood by Automated counOrdered By: Marilynn Silva on 08-16-2024 WBC corrected for nucl RBC Auto (Bld) [#/Vol] 7.4 10 3/uL 4.0-11.0 [facility] Lymphocytes Auto (Bld) [#/Vo l]Ordered By: Marilynn Silva on 08-16-2024 Lymphocytes (Bld) [#/Vol] 2.8 10 3/uL 1.2-3.8 [facility] Lymphocytes/100 WBC Auto (Bl d)Ordered By: Marilynn Silva on 08-16-2024 Lymphocytes/100 WBC (Bld) 37.6 % 20.5-60.0 [facility] MCH Auto (RBC) [Entitic mass ]Ordered By: Marilynn Silva on 08-16-2024 MCH (RBC) [Entitic mass] 29.4 pg 26.7-34.0 [facility] MCHC Auto (RBC) [Mass/Vol]Or dered By: Marilynn Sivla on 08-16-2024 MCHC (RBC) [Mass/Vol] 33.2 g/dL 29.9-35.2 [facility] MCV Auto (RBC) [Entitic vol] Ordered By: Marilynn Silva on 08-16-2024 MCV (RBC) [Entitic vol] 88.5 fL 81.0-99.0 [facility] Monocytes Auto (Bld) [#/Vol] Ordered By: Marilynn Silva on 08-16-2024 Monocytes (Bld) [#/Vol] 0.6 10 3/uL 0.3-0.8 [facility] Monocytes/100 WBC Auto (Bld) Ordered By: Marilynn Silva on 08-16-2024 Monocytes/100 WBC (Bld) 8.7 % 1.7-12.0 [facility] Neutrophils Auto (Bld) [#/Vo l]Ordered By: Marilynn Silva on 08-16-2024 Neutrophils (Bld) [#/Vol] 3.8 10 3/uL 1.4-6.5 [facility] Neutrophils/100 WBC Auto (Bl d)Ordered By: Marilynn Silva on 08-16-2024 Neutrophils/100 WBC (Bld) 51.1 % 43.0-75.0 [facility] No Panel InformationOrdered By: Marilynn Silva on 06-23-2025 Eosinophils # (Auto) 0.1 10 3/uL 0.0-0.7 [facility] Immature Granulocyte # (Auto) 0.02 10 3/uL 0.00-0.03 [facility] Platelet mean volume Auto (B ld) [Entitic vol]Ordered By: Marilynn Silva on 08-16-2024 Platelet mean volume (Bld) [Entitic vol] 10.1 fL 9.5-13.5 [facility] Platelets Auto (Bld) [#/Vol] Ordered By: Marilynn Silva on 08-16-2024 Platelets (Bld) [#/Vol] 336 10 3/uL 150-450 [facility] RBC Auto (Bld) [#/Vol]Ordere d By: Marilynn Silva on 08-16-2024 RBC (Bld) [#/Vol] 4.45 10 6/uL 4.20-5.40 [facility] Serum or plasma albumin/glob ulin mass ratioOrdered By: Marilynn Silva on 08-16-2024 Albumin/Globulin [Mass ratio] 1.2 {ratio} [facility] Serum or plasma anion gap de terminationOrdered By: Marilynn Silva on 08-16-2024 Anion gap [Moles/Vol] 11.2 mmol/L [facility] Serum or plasma total choles terol/high density lipoprotein (HDL) cholesterol mass ratOrdered By: Marilynn Silva on 08-16-2024 Cholesterol.total/Chol esterol in HDL [Mass ratio] 2.3 {ratio} [facility] Comment on above: 3.3 - 4.4 LOW RISK4. 4 - 7.1 AVERAGE RISK7.1 - 11.0 MODERATE RISK>11.0 HIGH RISK Reminderson 01-12-2024 Reminders Reminders From: Heaven Cochran LPN To: N - Clinical; Sent: 01/12/2024 07:49:33 EST Show up: 12/06/2028 07:00:00 EDT Subject: colonoscopy recall Due Date/Time: 01/06/2029 07:00:00 EST Reminder/Recall Patient due for surveillance colonoscopy 01/06/29 due to history of tubular adenoma. Normal [facility] Pathology study report docum entOrdered By: Stanley Ansari on 01-09-2024 Pathology study [facility] Other Phone: HCG ( test) eduarblaine george Ql (U)on 01-07-2024 HCG ( test) Ql (U) Urine human chorionic gonadotropin (hCG) detection by immunoassay NEGATIVE [facility] Flakito 01-07-2024 L ------ Specimen: [id number] Received: 01/08/24 Status: ALEJANDROCollin Vivas Num: [id number] Spec Type: Surgical Subm Dr: Eleno Lund MD FACS Tissues: A Colon Biopsy (SIGMOID POLYP) Procedures: MABEL/Cyndy Knutson/Gustavo L4 Age/ Patient Sex Location Account Attending Physician Dora Turner 48/F [facility] [id number] Eleno Lund MD FACS SPEC NUM: [id number] RECD: 01/08/24 STATUS: ADELSO VIVAS NUM: [id number] SHARONA: 01/07/[address] [facility] [address]: Eleno Lund MD FACS ENTERED: 01/08/[address] [facility] [address]: Cristal Lake SPEC TYPE: Surgical DEPT: KATRIN KOENIG ENTERED BY: [id number] RECV BY: [id number] ORDERED: HE/2, Gross/Micro L4 ORDERED: HE/2, Gross/Micro L4 Pathological Diagnosis Colon, sigmoid, polypectomy: - Fragments of tubular adenoma. Clinical Information Sigmoid polyp. Gross Description Part A is received in formalin labeled with the patients name, date of , and sigmoid polyp are four dia-tan, focally erythematous, friable, 0.3 to 0.4 cm in greatest dimension polypoid fragments. The specimen is entirely submitted in a single cassette. (1, ns, [id number]) Microscopic Description Microscopic examination is performed. CPT Codes 18871 Specimen: [id number] Received: 01/08/24 Status: ADELSO Ochoaandrés Num: [id number] Spec Type: Surgical Subm Dr: Eleno Lund MD FACS Tissues: A Colon Biopsy (SIGMOID POLYP) Procedures: HE/2, Gross/Micro L4 Patient: Dora Turner [id number] (Continued) Signed (signature on file) Stanley Ansari MD 01/09/24 1142 Normal [facility] Ambulatory Visit Summaryon 1 Ambulatory Visit Summary Ambulatory Visit Summary DORA TURNER :1975 Visit Date:12/09/2023 Ambulatory Visit Instructions Your [...] for choosing us for your care. Normal [facility] Human papilloma virus 16+18+ 31+33+35+39+45+51+52+56+58+59+66+68 DNA [Presence] in [place] 09-10-2023 HPV 16+18+31+33+35+39+45+5 1+52+56+58+59+66+68 DNA Probe+sig amp Ql (Cvx) Negative Negative [facility] Comment on above: This nucleic acid am plification test detects fourteen high- risk HPV types (16,18,31,33,35,39,45,51,52,56,58,59,66,68)without differentiation.Performed at: =G - [facility] [address] [id number] Director: Natividad Spencer MD, Phone: [phone] at: - [facility] [address] [id number] Director: Nativiadd Spencer MD, Phone: [phone] No Panel Informationon 09-09 HPV High Risk Other Comment Note . [facility] Comment on above: TESTS RESULT FLAG UN ITS REF RANGE LAB DIAGNOSIS: 02 NEGATIVE FOR INTRAEPITHELIAL LESION OR MALIGNANCY. CELLULAR CHANGES ASSOCIATED WITH INFLAMMATION ARE PRESENT.Specimen adequacy: 02 Satisfactory for evaluation. Endocervical and/or squamous metaplastic cells (endocervical component) are present.Performed by: 02 Keagan Leung, Aprn (ASCP). 02Note: Note 02 The Pap smear is [...] Criteria not met, HPV Genotype not performed. ------- FLAG LEGEND: L-Low Normal,H-High Normal,LL-Alert Low,HH-Alert High <-Panic Low,>-Panic High,A-Abnormal,AA-Critical Abnormal -----Performed at:02 WB [facility] [address] [place] [address] Natividda Spencer MD, Reference Lab Test Patient Age Note . [facility] Comment on above: TESTS RESULT FLAG UN ITS REF RANGE LAB Clinician Provided Cytology Information Source.............Cervix;Endocervix No. of containers..01 ThinPrep DiannAge Ilia YANEZ Kay... 28 FLAG LEGEND: L-Low Normal,H-High Normal,LL-Alert Low,HH-Alert High <-Panic Low,>-Panic High,A-Abnormal,AA-Critical Abnormal -----Performed at:01 [facility] [address] [place] [address] Natividad Spencer MD, Basophils Auto (Bld) [#/Vol] on 08-21-2023 Basophils (Bld) [#/Vol] 0.1 10 3/uL 0.0-0.1 [facility] Basophils/100 WBC Auto (Bld) on 08-21-2023 Basophils/100 WBC (Bld) 1.2 % 0.2-2.0 [facility] Cholesterol in LDL Calc [Mas s/Vol]on 08-21-2023 Cholesterol in LDL [Mass/Vol] 73.4 mg/dL [facility] Comment on above: <100 mg/dl [id number] 0-129 mg/dl NEAR OR ABOVE [id number] mg/dl BORDERLINE [id number] mg/dl HIGH>190 mg/dl VERY HIGH Cholesterol in VLDL Calc [Ma ss/Vol]on 08-21-2023 Cholesterol in VLDL [Mass/Vol] 20.6 mg/dL [facility] Eosinophils/100 WBC Auto (Bl d)on 08-21-2023 Eosinophils/100 WBC (Bld) 2.2 % 0.9-7.0 [facility] Erythrocyte distribution wid th Auto (RBC) [Ratio]on 08-21-2023 Erythrocyte distribution width (RBC) [Ratio] 12.2 % 11.0-15.0 [facility] Estimated glomerular filtrat ion rate (GFR) non- Americanon 08-21-2023 GFR/1.73 sq M.predicted among non-blacks MDRD (S/P/Bld) [Vol rate/Area] mL/min/{1.73_m2} >=60 [facility] Globulin Calc (S) [Mass/Vol] on 08-21-2023 Globulin (S) [Mass/Vol] 3.4 g/dL [facility] Glucose mean value [Mass/vol ume] in Blood Estimated from glycated hemoglobinon 08-21-2023 Average glucose Estimated from glycated hemoglobin (Bld) [Mass/Vol] 100 mg/dL [facility] Hematocrit Auto (Bld) [Volum e fraction]on 08-21-2023 Hematocrit (Bld) [Volume fraction] 41.4 % 36.0-48.0 [facility] Hemoglobin [Mass/volume] in Bloodon 08-21-2023 Hemoglobin (Bld) [Mass/Vol] 13.9 g/dL 12.0-16.0 [facility] Laboratory - Chemistry and C hemistry - challengeon 08-21-2023 Albumin [Mass/Vol] 4.0 g/dL 3.4-5.0 [facility] ALP [Catalytic activity/Vol] 87 U/L 46-116 [facility] ALT [Catalytic activity/Vol] 12 U/L Low 14-59 [facility] AST [Catalytic activity/Vol] 12 U/L Low 15-37 [facility] Bilirubin [Mass/Vol] 1.1 mg/dL High 0.2-1.0 [facility] Calcium [Mass/Vol] 8.9 mg/dL 8.5-10.1 [facility] Chloride [Moles/Vol] 100 mmol/L 98-107 [facility] Cholesterol [Mass/Vol] 147 mg/dL <=200 [facility] Cholesterol in HDL [Mass/Vol] 53 mg/dL 40-60 [facility] Comment on above: > or =60 mg/dl - LOW CARDIOVASCULAR RISK<40 mg/dl - HIGH CARDIOVASCULAR RISK CO2 [Moles/Vol] 27.1 mmol/L 21.0-32.0 [facility] Creatinine [Mass/Vol] 0.87 mg/dL 0.55-1.02 [facility] GFR/1.73 sq M.predicted MDRD (S/P/Bld) [Vol rate/Area] mL/min/{1.73_m2} >=60 [facility] Glucose [Mass/Vol] 86 mg/dL 74-106 [facility] Potassium [Moles/Vol] 4.3 mmol/L 3.5-5.1 [facility] Protein [Mass/Vol] 7.4 g/dL 6.4-8.2 [facility] Sodium [Moles/Vol] 137 mmol/L 136-145 [facility] Triglyceride [Mass/Vol] 103 mg/dL <=150 [facility] TSH Qn 2.481 m[IU]/L 0.358-3.740 [facility] Urea nitrogen [Mass/Vol] 10.0 mg/dL 7.0-18.0 [facility] Urea nitrogen/Creatinine [Mass ratio] 11.5 mg/mg [facility] Laboratory - Hematology and Cell countson 08-21-2023 HbA1c (Bld) [Mass fraction] 5.1 % 4.5-6.2 [facility] Comment on above: ADA RECOMMENDED LIMI T 4.0 - 6.0ADA THERAPEUTIC TARGET < 7.0ACTION SUGGESTED> 7.0 Immature granulocytes/100 WBC (Bld) 0.3 % 0.0-0.5 [facility] Leukocytes [#/volume] correc minerva for nucleated erythrocytes in Blood by Automated counon 08-21-2023 WBC corrected for nucl RBC Auto (Bld) [#/Vol] 7.8 10 3/uL 4.0-11.0 [facility] Lymphocytes Auto (Bld) [#/Vo l]on 08-21-2023 Lymphocytes (Bld) [#/Vol] 2.9 10 3/uL 1.2-3.8 [facility] Lymphocytes/100 WBC Auto (Bl d)on 08-21-2023 Lymphocytes/100 WBC (Bld) 37.3 % 20.5-60.0 [facility] MCH Auto (RBC) [Entitic mass ]on 08-21-2023 MCH (RBC) [Entitic mass] 29.1 pg 26.7-34.0 [facility] MCHC Auto (RBC) [Mass/Vol]on 08-21-2023 MCHC (RBC) [Mass/Vol] 33.6 g/dL 29.9-35.2 [facility] MCV Auto (RBC) [Entitic vol] on 08-21-2023 MCV (RBC) [Entitic vol] 86.8 fL 81.0-99.0 [facility] Monocytes Auto (Bld) [#/Vol] on 08-21-2023 Monocytes (Bld) [#/Vol] 0.6 10 3/uL 0.3-0.8 [facility] Monocytes/100 WBC Auto (Bld) on 08-21-2023 Monocytes/100 WBC (Bld) 8.0 % 1.7-12.0 [facility] Neutrophils Auto (Bld) [#/Vo l]on 08-21-2023 Neutrophils (Bld) [#/Vol] 4.0 10 3/uL 1.4-6.5 [facility] Neutrophils/100 WBC Auto (Bl d)on 08-21-2023 Neutrophils/100 WBC (Bld) 51.0 % 43.0-75.0 [facility] No Panel Informationon 08-20 Eosinophils # (Auto) 0.2 10 3/uL 0.0-0.7 [facility] Immature Granulocyte # (Auto) 0.02 10 3/uL 0.00-0.03 [facility] Platelet mean volume Auto (B ld) [Entitic vol]on 08-21-2023 Platelet mean volume (Bld) [Entitic vol] 10.6 fL 9.5-13.5 [facility] Platelets Auto (Bld) [#/Vol] on 08-21-2023 Platelets (Bld) [#/Vol] 364 10 3/uL 150-450 [facility] RBC Auto (Bld) [#/Vol]on RBC (Bld) [#/Vol] 4.77 10 6/uL 4.20-5.40 [facility] Serum or plasma albumin/glob ulin mass ratioon 08-21-2023 Albumin/Globulin [Mass ratio] 1.2 {ratio} [facility] Serum or plasma anion gap de terminationon 08-21-2023 Anion gap [Moles/Vol] 14.2 mmol/L [facility] Serum or plasma total choles terol/high density lipoprotein (HDL) cholesterol mass rola 08-21-2023 Cholesterol.total/Chol esterol in HDL [Mass ratio] 2.8 {ratio} [facility] Comment on above: 3.3 - 4.4 LOW RISK4. 4 - 7.1 AVERAGE RISK7.1 - 11.0 MODERATE RISK>11.0 HIGH RISK PAP ACOG PANEL 2: 30 to 65on 06-11-2022 . . Normal [facility] Comment on above: Result Comment: Perf ormed at: WB Performed By: #### [id number] #### [facility] [address] [address] [address] Sobia Iqbal Age Gdln ACOG Testing -63 Normal [facility] Comment on above: Performed By: #### [id number] #### [facility] [address] [address] [address] Sobia Iqbal DIAGNOSIS: Comment Normal [facility] Comment on above: Result Comment: NEGA TIVE FOR INTRAEPITHELIAL LESION OR MALIGNANCY. Performed at: [facility] Performed By: #### [id number] #### [facility] [address] [address] [address] Sobia Iqbal HPV Aptima Negative Normal Negative [facility] Comment on above: Result Comment: This nucleic acid amplification test detects fourteen high-risk HPV types (16,18,31,33,35,39,45,51,52,56,58,59,66,68) without differentiation. Performed at: =G Performed By: #### [id number] #### [facility] [address] [address] [address] Sobia Iqbal HPV Genotype Reflex Comment Normal [facility] Comment on above: Result Comment: Crit eria not met, HPV Genotype not performed. Performed at: WB Performed By: #### [id number] #### [facility] [address] [address] [address] Sobia Iqbal Methodology: Comment Normal [facility] Comment on above: Result Comment: This liquid based ThinPrep(R) pap test was screened with the use of an image guided system. Performed at: WB Performed By: #### [id number] #### [facility] [address] [place] [address] Dr. Sobia Iqbal Note: Comment Normal [facility] Comment on above: Result Comment: The Pap smear is a screening test designed to aid in the detection of premalignant and malignant conditions of the uterine cervix. It is not a diagnostic procedure and should not be used as the sole means of detecting cervical cancer. Both false-positive and false-negative reports do occur. . Performed at: WB Performed By: #### [id number] #### [facility] [address] [place] [address] Dr. Sobia Iqbal Performed by: Comment Normal [facility] Comment on above: Result Comment: Gely Esquivel, Aprn (ASCP) Performed at: WB Performed By: #### [id number] #### [facility] [address] [place] [address] Dr. Sobia Iqbal Specimen adequacy: Comment [facility] Comment on above: Result Comment: Sati sfactory for evaluation. Endocervical and/or squamous metaplastic cells (endocervical component) are present. Performed at: WB Performed By: #### [id number] #### [facility] [address] [place] [address] Dr. Sobia Iqbal US PELVIS AND TRANSVAGon US PELVIS AND TRANSVAG EXAMINATION: US P NBA AND TRANSVAG HISTORY: Pelvic and perineal pain [...] by: BONG BUTCHER Date: 2022-06-10 18:15 Normal [facility] CBC AUTO DIFFon 09-25-2021 BASO # 0.1 103/ul Normal 0.0-0.1 [facility] Comment on above: Performed By: #### C BC ####[facility] [address] [place], [place] [address]Dr. Sobia Iqbal Basophils/100 WBC (Bld) 0.7 % Normal 0.2-2.0 [facility] Comment on above: Performed By: #### C BC ####[facility] [address] [place], [place] [address]Dr. Sobia Iqbal EO # 0.3 103/ul Normal 0.0-0.7 [facility] Comment on above: Performed By: #### C BC ####[facility] [address] [place], [place] [address]Dr. Sobia Iqbal Eosinophils/100 WBC (Bld) 3.0 % Normal 0.9-7.0 The [facility] Comment on above: Performed By: #### C BC ####[facility] [address] [place], [place] [address]Dr. oSbia Iqbal Erythrocyte distribution width (RBC) [Ratio] 12.5 % Normal 11.0-15.0 The [facility] Comment on above: Performed By: #### C BC ####[facility] [address] [place], [place] [address]Dr. Sobia Iqbal Hematocrit (Bld) [Volume fraction] 43.1 % Normal 36.0-48.0 The [facility] Comment on above: Performed By: #### C BC ####[facility] [address] [place], [place] [address]Dr. Sobia Iqbal Hemoglobin (Bld) [Mass/Vol] 14.7 g/dL Normal 12.0-16.0 The [facility] Comment on above: Performed By: #### C BC ####[facility] [address] [place], [place] [address]Dr. Sobia Iqbal IG # 0.03 10e3/ul Normal 0.00-0.03 The [facility] Comment on above: Performed By: #### C BC ####[facility] [address] [place], [place] [address]Dr. Sobia Iqbal IG % 0.4 % Normal 0.0-0.5 [facility] Comment on above: Performed By: #### C BC ####[facility] [address] [address]DrTerry Sobia Rasheed LYMPH # 2.5 103/ul Normal 1.2-3.8 [facility] Comment on above: Performed By: #### C BC ####[facility] [address] [address]DrTerry Sobia Rasheed Lymphocytes/100 WBC (Bld) 30.1 % Normal 20.5-60.0 [facility] Comment on above: Performed By: #### C BC ####[facility] [address] [place], [place] [address]DrTerry Marshaketan Iqbal MANUAL DIFF REQ NO Normal [facility] Comment on above: Performed By: #### C BC ####[facility] [address] [place], [place] [address]DrTerry Sobia Rasheed MCH (RBC) [Entitic mass] 29.7 pg Normal 26.7-34.0 [facility] Comment on above: Performed By: #### C BC ####[facility] [address] [place], [place] [address]Dr. Sobia Iqbal MCHC (RBC) [Mass/Vol] 34.1 g/dL Normal 29.9-35.2 The [facility] Comment on above: Performed By: #### C BC ####[facility] [address] [place], [place] [address]DrTerry Sobia Rasheed MCV (RBC) [Entitic vol] 87.1 fL Normal 81.0-99.0 The [facility] Comment on above: Performed By: #### C BC ####[facility] [address] [place], [place] [address]DrTerry Marshaketan Iqbal MONO # 0.6 103/ul Normal 0.3-0.8 The [facility] Comment on above: Performed By: #### C BC ####[facility] [address] [place], [place] [id number] Marshaketan Iqbal Monocytes/100 WBC (Bld) 7.6 % Normal 1.7-12.0 The [facility] Comment on above: Performed By: #### C BC ####[facility] [address] [address]Dr. Sobia Iqbal NEUT # 4.9 103/ul Normal 1.4-6.5 [facility] Comment on above: Performed By: #### C BC ####[facility] [address] [address]DrTerry Iqbal Neutrophils/100 WBC (Bld) 58.2 % Normal 43.0-75.0 [facility] Comment on above: Performed By: #### C BC ####[facility] [address] [address]DrTerry Iqbal Platelet mean volume (Bld) [Entitic vol] 9.9 fL Normal 9.5-13.5 [facility] Comment on above: Performed By: #### C BC ####[facility] [address] [address]Dr. Sobia Iqbal PLT 386 103/ul Normal 150-450 [facility] Comment on above: Performed By: #### C BC ####[facility] [address] [address]Dr. Sobia Iqbal RBC 4.95 106/ul Normal 4.20-5.40 [facility] Comment on above: Performed By: #### C BC ####[facility] [address] [address]DrTerry Iqbal WBC 8.4 103/ul Normal 4.0-11.0 The [facility] Comment on above: Performed By: #### C BC ####[facility] [address] [place] [id number]. Sobia Iqbal GLYCOHEMOGLOBIN A1Con 2021 ADA RECOMMENDATION SEE BELOW Normal The [facility] Comment on above: Result Comment: ADA RECOMMENDED LIMIT 4.0 - 6.0 ADA THERAPEUTIC TARGET < 7.0 ACTION SUGGESTED > 7.0 Performed By: #### A 1C #### [facility] [address] [address] [address] Sobia Iqbal Glucose [Mass/Vol] 117 mg/dL Normal [facility] Comment on above: Performed By: #### A 1C #### [facility] [address] [address] [address] Sobia Iqbal HbA1c (Bld) [Mass fraction] 5.7 % Normal 4.5-6.2 [facility] Comment on above: Performed By: #### A 1C #### [facility] [address] [address] [address] Sobia Iqbal LIPID PROFILEon 09-25-2021 CHOL-HDL RATIO NORM SEE BELOW Normal [facility] Comment on above: Result Comment: 3.3 - 4.4 LOW RISK 4.4 - 7.1 AVERAGE RISK 7.1 - 11.0 MODERATE RISK >11.0 HIGH RISK Performed By: #### T SH, LIPID, CMP #### [facility] [address] [place] [address] Dr. Sobia Iqbal Cholesterol [Mass/Vol] 153 mg/dL Normal <=200 [facility] Comment on above: Performed By: #### T SH, LIPID, CMP #### [facility] [address] [address] [address] Sobia Iqbal Cholesterol in HDL [Mass/Vol] 36 mg/dL Critically low 40-60 [facility] Comment on above: Performed By: #### T SH, LIPID, CMP #### [facility] [address] [place] [address] Dr. Sobia Iqbal Cholesterol in LDL [Mass/Vol] 97.8 mg/dL Normal [facility] Comment on above: Performed By: #### T SH, LIPID, CMP #### [facility] [address] [address] [address] Sobia Iqbal Cholesterol.total/Chol esterol in HDL [Mass ratio] 4.3 {ratio} Normal [facility] Comment on above: Performed By: #### T SH, LIPID, CMP #### [facility] [address] [place] [address] Dr. Sobia Iqbal HDL NORMAL > or = 60 mg/dl - LO W CARDIOVASCULAR RISK <40 mg/dl - HIGH CARDIOVASCULAR RISK Normal The [facility] Comment on above: Performed By: #### T LEANNA, LIPID, CMP #### [facility] [address] [address] [address] Sobia Iqbal LDL CALC NORMAL SEE BELOW Normal [facility] Comment on above: Result Comment: <100 mg/dl OPTIMAL 100 - 129 mg/dl NEAR OR ABOVE OPTIMAL 130 - 159 mg/dl BORDERLINE HIGH 160 - 189 mg/dl HIGH >190 mg/dl VERY HIGH Performed By: #### T LEANNA, LIPID, CMP #### [facility] [address] [address] [address] Sobia Iqbal Triglyceride [Mass/Vol] 96 mg/dL Normal <=150 [facility] Comment on above: Performed By: #### T LEANNA, LIPID, CMP #### [facility] [address] [place] [address] Dr. Sobia Iqbal VLDL CALC 19.2 mg/dL Normal [facility] Comment on above: Performed By: #### T LEANNA, LIPID, CMP #### [facility] [address] [place] [address] Dr. Sobia Iqbal PROF 14(COMP METB)on 022 Albumin [Mass/Vol] 3.7 g/dL Normal 3.4-5.0 [facility] Comment on above: Performed By: #### T LEANNA, LIPID, CMP #### [facility] [address] [place] [address] Dr. Sobia Iqbal Albumin/Globulin [Mass ratio] 1.1 {ratio} Normal [facility] Comment on above: Performed By: #### T LEANNA, LIPID, CMP #### [facility] [address] [place] [address] Dr. Sobia Iqbal ALP [Catalytic activity/Vol] 95 U/L Normal 46-116 [facility] Comment on above: Performed By: #### T LEANNA, LIPID, CMP #### [facility] [address] [place] [address] Dr. Sobia Iqbal ALT [Catalytic activity/Vol] 22 U/L Normal 14-59 [facility] Comment on above: Performed By: #### T SH, LIPID, CMP #### [facility] [address] [address] [address] Sobia Iqbal Anion gap [Moles/Vol] 10.7 mmol/L Normal Th e [facility] Comment on above: Performed By: #### T SH, LIPID, CMP #### [facility] [address] [address] [address] Sobia Iqbal AST [Catalytic activity/Vol] 15 U/L Normal 15-37 [facility] Comment on above: Performed By: #### T SH, LIPID, CMP #### [facility] [address] [address] [address] Sobia Iqbal Bilirubin [Mass/Vol] 0.8 mg/dL Normal 0.2-1.0 [facility] Comment on above: Performed By: #### T SH, LIPID, CMP #### [facility] [address] [place] [address] Dr. Sobia Iqbal Calcium [Mass/Vol] 8.5 mg/dL Normal 8.5-10.1 [facility] Comment on above: Performed By: #### T SH, LIPID, CMP #### [facility] [address] [place] [address] Dr. Sobia Iqbal Chloride [Moles/Vol] 103 mmol/L Normal 98-107 [facility] Comment on above: Performed By: #### T SH, LIPID, CMP #### [facility] [address] [address] [address] Sobia Iqbal CO2 [Moles/Vol] 28.6 mmol/L Normal 21.0-32.0 [facility] Comment on above: Performed By: #### T SH, LIPID, CMP #### [facility] [address] [address] [address] Sobia Iqbal Creatinine [Mass/Vol] 0.90 mg/dL Normal 0.55-1.02 [facility] Comment on above: Performed By: #### T SH, LIPID, CMP #### [facility] [address] [address] [address] Sobia Iqbal EGFR-AF LEBANESE >60 Normal >=60 [facility] Comment on above: Performed By: #### T SH, LIPID, CMP #### [facility] [address] [address] [address] Sobia Iqbal EGFR-NON AF LEBANESE >60 Normal >=60 [facility] Comment on above: Performed By: #### T SH, LIPID, CMP #### [facility] [address] [address] [address] Sobia Iqbal Globulin (S) [Mass/Vol] 3.5 g/dL Normal [facility] Comment on above: Performed By: #### T SH, LIPID, CMP #### [facility] [address] [address] [address] Sobia Iqbal Glucose [Mass/Vol] 83 mg/dL Normal 74-106 [facility] Comment on above: Performed By: #### T SH, LIPID, CMP #### [facility] [address] [address] [address] Sobia Iqbal Potassium [Moles/Vol] 4.3 mmol/L Normal 3.5-5.1 [facility] Comment on above: Performed By: #### T SH, LIPID, CMP #### [facility] [address] [address] [address] Sobia Iqbal Protein [Mass/Vol] 7.2 g/dL Normal 6.4-8.2 [facility] Comment on above: Performed By: #### T SH, LIPID, CMP #### [facility] [address] [address] [address] Sobia Iqbal Sodium [Moles/Vol] 138 mmol/L Normal 136-145 [facility] Comment on above: Performed By: #### T SH, LIPID, CMP #### [facility] [address] [address] [address] Sobia Iqbal Urea nitrogen [Mass/Vol] 10.0 mg/dL Normal 7.0-18.0 [facility] Comment on above: Performed By: #### T SH, LIPID, CMP #### [facility] [address] [address] [address] Sobia Iqbal Urea nitrogen/Creatinine [Mass ratio] 11.1 mg/mg Normal [facility] Comment on above: Performed By: #### T SH, LIPID, CMP #### [facility] [address] [place], [place] [address] Dr. Sobia Iqbal TSHon 09-25-2021 TSH 1.843 uIU/mL Normal 0.358-3.740 [facility] Comment on above: Performed By: #### T SH, LIPID, CMP #### [facility] [address] [place], [place] [address] Dr. Sobia Iqbal MG MAMM SCREEN 3D LOLLY CADon 09-05-2021 MG MAMM SCREEN 3D LOLLY CAD Patient: DORA TURNER Exam Date: 09/05/2021 : 1975 Gender:F Ordering : DR DALLIN BOND . Admission #: [id number] Family : DR MARILYNN SILVA M.D. Order #: [id number] CLICK HERE TO VIEW EXAM RADIOLOGY REPORT [...] Treatments None Family Cancers None LOCATION: The [facility] BREAST COMPOSITION: Heterogeneously dense,which may obscure [...] Butcher MD on 09/05/2021 at 08:24 Normal [facility] US PELVIS AND TRANSVAGon US PELVIS AND TRANSVAG EXAMINATION: US P NBA AND TRANSVAG HISTORY: Cyst of ovary COMPARISON: [...] BONG BUTCHER Date: 2021-07-17 14:15 Normal [facility] CA 125on 06-27-2021 Cancer Antigen (CA) 125 15.8 U/mL Normal 0.0-38.1 [facility] Comment on above: Result Comment: [employer] Electrochemiluminescence Immunoassay (ECLIA) . Values obtained with different assay methods or kits cannot be used interchangeably. Results cannot be interpreted as absolute evidence of the presence or absence of malignant disease. Performed By: #### C A 125 #### [facility] [address] [place] [address] Dr. Sobia Iqbla CEAon 06-27-2021 CEA 1.4 ng/mL Normal 0.0-4.7 [facility] Comment on above: Result Comment: Nons mokers <3.9 Smokers <5.6 . [facility] Electrochemiluminescence Immunoassay (ECLIA) . Values obtained with different assay methods or kits cannot be used interchangeably. Results cannot be interpreted as absolute evidence of the presence or absence of malignant disease. Performed By: #### C EA. #### [facility] [address] [address] [address] Sobia Iqbal LDHon 06-26-2021 LDH 244 U/L Critically high 81-234 [facility] Comment on above: Performed By: #### P REGQNT, LDH ####[facility] [address] [address]Dr. Sobia Iqbal PREG QUANT HCGon 06-26-2021 HCG QUANT <1 Normal [facility] Comment on above: Performed By: #### P REGQNT, LDH ####[facility] [address] [place], [place] [address]Vi. Sobia Iqbal HCG RANGE SEE BELOW Normal [facility] Comment on above: Result Comment: 5-50 0-1 WEEK 40-300 1-2 WEEKS 100-1,000 2-3 WEEKS 500-6,000 3-4 WEEKS 5,000-200,000 1-2 MONTHS 10,000-100,000 2-3 MONTHS 3,000-50,000 2ND TRIMESTER 1,000-50,000 3RD TRIMESTER Performed By: #### P REGQNT, LDH ####[facility] [address] [place], [place] [address]Mx. Sobia Rasheed Vital Signs Date Time Vital Sign Value Performing Clinician Facility 08-25-2024 10:27-040 Body height 162.56 cm Marilynn Silva MD Work Phone: [facility] 08-25-2024 10:27-0400 Body mass index (BMI) [Ratio] 20.4 kg/m2 Marilynn Silva MD Work Phone: [facility] 08-25-2024 10:27-040 Body weight 53.97 kg Marilynn Silva MD Work Phone: [facility] 08-25-2024 10:27-0400 Diastolic blood pressure 72 mm[Hg] Marilynn Silva MD Work Phone: [facility] 08-25-2024 10:27-0400 Heart rate 72 /min Marilynn Silva MD Work Phone: [facility] 08-25-2024 10:27-0400 SaO2% (BldA) [Mass fraction] 99 % Marilynn Silva MD Work Phone: [facility] 08-25-2024 10:27-0400 Systolic blood pressure 107 mm[Hg] Marilynn Silva MD Work Phone: [facility] 12-09-2023 15:19-0400 Blood Pressure Location Eleno NILL [facility] [place] 12-09-2023 15:19-0400 Diastolic blood pressure 76 mm[Hg] Eleno NILL [facility] [place] 12-09-2023 15:19-0400 Heart rate 72 /min Eleno NILL [facility] [place] 12-09-2023 15:19-0400 Respiratory rate 16 /min Eleno NILL [facility] 12-09-2023 15:19-0400 Systolic blood pressure 108 mm[Hg] Eleno NILL [facility] 10-08-2023 09:07-0400 Body height 162.56 cm [facility] 10-08-2023 09:07-0400 Body mass index (BMI) [Ratio] 21.3 kg/m2 [facility] 10-08-2023 09:07-0400 Body weight 56.35 kg [facility] 10-08-2023 09:07-0400 Diastolic blood pressure 83 mm[Hg] [facility] 10-08-2023 09:07-0400 Heart rate 76 /min [facility] 10-08-2023 09:07-0400 Respiratory rate 12 /min [facility] 10-08-2023 09:07-0400 Systolic blood pressure 129 mm[Hg] [facility] 08-26-2023 13:40-0400 Body height 162.56 cm [facility] 08-26-2023 13:40-0400 Body mass index (BMI) [Ratio] 21.4 kg/m2 [facility] 08-26-2023 13:40-0400 Body weight 56.69 kg [facility] 08-26-2023 13:40-0400 Diastolic blood pressure 66 mm[Hg] [facility] 08-26-2023 13:40-0400 Heart rate 65 /min [facility] 08-26-2023 13:40-0400 Systolic blood pressure 100 mm[Hg] [facility] 10-08-2022 13:15-0400 Body height 162.56 cm Marilynn Silva Other [facility] Other 10-08-2022 13:15-0400 Body mass index (BMI) [Ratio] 25.57 kg/m2 Marilynn Silva Other [facility] Other 10-08-2022 13:15-0400 Body mass index (BMI) [Ratio] 27.12 kg/m2 Marilynn Silva Other [facility] Other 10-08-2022 13:15-0400 Body weight 67.59 kg Marilynn Silva Other [facility] Other 10-08-2022 13:15-0400 Body weight 71.67 kg Marilynn Silva Other [facility] Other 10-08-2022 13:15-0400 Diastolic blood pressure 74 mm[Hg] Marilynn Silva Other [facility] Other 10-08-2022 13:15-0400 Systolic blood pressure 110 mm[Hg] Marilynn Silva Other [facility] Other 09-10-2022 13:00-0400 Body height 162.56 cm Marilynn Silva Other [facility] Other 09-10-2022 13:00-0400 Body mass index (BMI) [Ratio] 25.74 kg/m2 Marilynn Silva Other [facility] Other 09-10-2022 13:00-0400 Body weight 68.04 kg Marilynn Silva Other [facility] Other 09-10-2022 13:00-0400 Diastolic blood pressure 80 mm[Hg] Marilynn Silva Other [facility] Other 09-10-2022 13:00-0400 Systolic blood pressure 125 mm[Hg] Marilynn Silva Other [facility] Other Encounters Encounter Date Encounter Type Care Provider Facility Start: 08-25-2024 End: 08-25-2024 ambulatory Marilynn Silva MD Work Phone: [facility] Work Phone: Start: 08-25-2024 End: 08-25-2024 Patient encounter procedure Marilynn Silva MD -[facility] Work Phone: Start: 08-25-2024 End: 08-25-2024 Patient encounter status Marilynn Silva MD [facility] Start: 08-16-2024 Non-patient / Non-visit Marilynn tolbert MD -[facility] Work Phone: Start: 01-07-2024 End: 01-07-2024 ambulatory Eleno Lund [facility] Work Phone: Start: 01-07-2024 End: 01-07-2024 Departed Referred Eleno Lund MD Work Phone: [facility] Start: 01-07-2024 Non-patient / Non-visit Cachorro Lund MD Work Phone: [facility] Work Phone: Start: 01-07-2024 End: 01-07-2024 ambulatory Eleno LUND Facility:CD:[id number] Start: 12-09-2023 End: 12-09-2023 ambulatory SID HORNER Facility:[facility] Start: 12-09-2023 End: 12-09-2023 Patient encounter procedure Eleno LUND [facility] Start: 11-13-2023 ambulatory Eleno LUND Facility:[facility] Start: 10-08-2023 End: 10-08-2023 ambulatory [facility] Work Phone: Start: 10-08-2023 End: 10-08-2023 Patient encounter procedure [facility] Work Phone: Start: 09-10-2023 Non-patient / Non-visit [facility] Work Phone: Start: 09-10-2023 End: 09-10-2023 ambulatory DALLIN BOND Not Available Start: 08-26-2023 End: 08-26-2023 ambulatory [facility] Work Phone: Start: 08-26-2023 End: 08-26-2023 Encounter for general adult medical examination without abnormal findings [facility] Start: 08-26-2023 End: 08-26-2023 Patient encounter procedure [facility] Work Phone: Start: 08-21-2023 Non-patient / Non-visit [facility] Work Phone: Start: 08-19-2023 Patient encounter status [facility] Start: 01-06-2023 (Televisit) Televisit Marilynn Silva [facility] Start: 01-06-2023 End: 01-06-2023 ambulatory Marilynn Silva Other [facility] Other Start: 10-08-2022 End: 10-08-2022 ambulatory Marilynn Silva Other [facility] Other Start: 10-08-2022 Office outpatient vi sit 10 minutes Marilynn Silva [facility] Start: 09-10-2022 End: 09-10-2022 ambulatory Marilynn Silva Other [facility] Other Start: 09-10-2022 Encounter for genera l adult medical examination without abnormal findings Marilynn Silva [facility] Start: 09-10-2022 Periodic preventive med est patient 40-64yrs Marilynn Silva [facility] Start: 06-10-2022 End: 06-11-[address] MARILYNN SILVA Facility:[facility] Start: 06-04-2022 End: 06-04-[address] MARILYNN SILVA Facility:[facility] Start: 10-04-2021 Adult health examination Sarah Silva Other [facility] Other Start: 10-04-2021 Gynecological examin ation normal Marilynn Silva Other [facility] Other Start: 09-29-2021 Encounter for genera l adult medical examination without abnormal findings DR MARILYNN SILVA [facility] Start: 09-25-2021 End: 09-26-[address] MARILYNN SILVA Facility:[facility] Start: 09-25-2021 End: 09-26-2021 Encounter for general adult medical examination without abnormal findings DR MARILYNN SILVA Facility:[facility] Start: 09-05-2021 End: 09-06-[address] BONG BUTCHER Facility:[facility] Start: 07-17-2021 End: 07-18-[address] BONG BUTCHER Facility:[facility] Start: 06-26-2021 End: 06-27-2021 ambulatory DALLIN BOND Facility:[facility] Procedures Date Procedure Procedure Detail Performing Clinician Endometrial ablation Eleno LUND Extraction of wisdom tooth M jacinda DAEL Lumpectomy of left breast Mi blanca LUND Reconstruction of nose Shayan kelly PEARLL Screening for malign ant neoplasm of breast Marilynn Silva Other Tonsillectomy and adenoidectomy Eleno LUND Plan of Treatment Date Care Activity Detail Author Start: 01-27-2024 ambulatory Ambulatory Facility:[facility] XR Sacrum and Coccyx GE 2 Views [facility] Immunizations Immunization Date Immunization Notes Care Provider Fa cility 02-12-2021 SARS-CoV-2 (COVID-19 ) mRNA-1273 vaccine Eleno LUND [facility] Comment on above: Result Comment: 2023: [id number] 01-15-2021 SARS-CoV-2 (COVID-19 ) mRNA-1273 vaccine Eleno LUND [facility] Comment on above: Result Comment: 2023: [id number] Payers Date Payer Category Payer Self-pay 2023 Unknown [id number] 2022 Unknown [id number] 2019 Unknown [id number] 1975 Unknown [id number] 1975 Unknown [id number] 1975 Unknown [id number] 2.16.84 [id number] 1975 Unknown [id number] 2.16.84 [id number] 1975 Unknown [id number] 2.16.84 [id number] 1973 Unknown [id number] 2.16.84 [id number] 1973 Unknown [id number] 2.16.84 [id number] 1973 Unknown [id number] 2.16.8 [id number] 1975 Unknown [id number] 2.16.8 [id number] 1973 Unknown [id number] 2.16.8 [id number] Unknown [id number] 2.16.8 [id number] Social History Date Type Detail Facility Unknown if ever smoked [facility] Other Sex Assigned At [facility] Start: 08-26-2023 End: 08-12-2024 Tobacco smoking status NHIS Ex-smoker (finding) [facility] Start: 1975 Sex Assigned At Female [facility]: 01-09-2024 [facility] Functional Status Date Assessment Result Facility 12-09-2023 Functional Status N/A [facility] Clinical Notes 09-10-2022 to 12-09-2023 Note Date & Type Note Facility [...] (COVID-19) mRNA-1273 vaccine 01/15/2021 Recorded 2023-11-24: [id number] [facility] Comment on above: Result Comment: Elec tronically Signed By: SHERWIN MAZARIEGOS, Eleno Belle\Date and Time Signed: 12/09/23 15:44 EDT 01-06-2023 Evaluation note Encounter Date Diagnosis Assessment [...] of diseases classified elsewhere (ICD-10 - B96.89) [facility] Other 08-15-2023 Evaluation note* Encounter Date Diagnosis Assessment Notes Treatment Notes Treatment Clinical Notes Sep, Body mass index (BMI) 27.0-27.9, [...] to ER and Follow-up with me immediately. [facility] Other 08-15-2023 Evaluation note* Encounter Date Diagnosis Assessment Notes Treatment Notes Treatment Clinical Notes Sep, Body mass index (BMI) 27.0-27.9, [...] (BMI 25.0-29.9) (ICD-10 - E66.3) as above [facility] Other 07-18-2023 Evaluation note* Encounter Date Diagnosis Assessment Notes Treatment Notes Treatment Clinical Notes Aug, Well adult exam (ICD-10 - [...] patient is sent home pleased, without concerns. 18 Aug, 2022 Overweight (BMI 25.0-29.9) (ICD-10 - E66.3) Patient [...] to ER and Follow-up with me immediately. [facility] Other Evaluation + Plan note No data available for this section [facility] [place] Evaluation note* Diagnosis Onset Date Resolution Status Wellness examination acute [facility] Work Phone: Evaluation noteNo assessment information available [facility] Work Phone: Evaluation note* Diagnosis Onset Date Resolution Status Admit Date Coccydynia acute August 25, 2024 10:23am Wellness examination acute August 25, 2024 10:23am [facility] Work Phone: History general Narrative - Reported* Type Description Date Medical History Migraines Medical History PCOS/ insulin resistant Surgical History T & A 1982 Surgical History Ablation 2017 Surgical History Rhinoplasty 1989 Surgical History Left Breast, Lumpectomy 2000 [facility] Other Hospital Discharge instructions No data available for this section [facility] Progress note No data available for this section [facility] Reason for referral (narrative)No reason for [facility] Work Phone: Summary Purpose Family History Relationship Condition Age at Onset Recorded Date/T francine father Hypertension Unknown Advance Directives Advance Directive Response Recorded Date/ Time Advance Directives No August 25 1:37pm Advance Directive Response Recorded Date/ Time Advance Directives No August 25 12:37pm Advance Directive Response Recorded Date/ Time Advance Directives No August 12 1:47pm Chief Complaint and Reason for Visit Chief Complaint Wellness Reason for Visit Wellness examination Chief Complaint Wellness bee sting Reason for Visit Wellness examination Chief Complaint Admit Date Unknown January 07, 2024 12:18pm Chief Complaint Admit Date wellness August 25, 2024 10:23 am Reason for Visit Admit Date Coccydynia August 25, 2024 10:23 am Wellness examination August 25, 2024 10:2 3am Additional Source Comments INFORMATION SOURCE (unrecogn ized section and content) DATE CREATED AUTHOR 06/13/2022 [facility] DATE CREATED AUTHOR AUTHOR'S ORGANIZ ATION 09/14/2023 [facility] EPIC DATE CREATED AUTHOR AUTHOR'S ORGANIZ ATION 01/10/2024 [facility] DATE CREATED AUTHOR AUTHOR'S ORGANIZ ATION 01/13/2024 [facility] REASON FOR VISIT (unrecogniz ed section and content) Wellness1 month Follow up1 m [facility] Follow upSICK, TESTING FOR COVID Care Teams (unrecognized sec tion and content) Team Status: Active Member Role Status Dates [...] October 08, 2023 End: October 08, 2023 Team Status: Active Member Role Status Dates Marilynn Silva MD Primary Care Provider Active Start: January 07, 2024 Eleno Lund MD FACS Attending Provider Active Start: January 07, 2024 Team Status: Inactive Member Role Status Dates Eleno Lund MD FACS Attending Provider Active Start: January 07, 2024 End: January 07, 2024 Team Status: Active Member Role Status Dates Marilynn Silva MD Primary Care Provider Active Start: August 16, 2024 Marilynn Silva MD Attending Provider Active St art: August 16, 2024 Team Status: Inactive Member Role Status Dates Marilynn Silva MD Primary Care Provider Active Start: August 25, 2024 End: August 25, 2024 Marilynn Silva MD Attending Provider Active St art: August 25, 2024 End: August 25, 2024 Goals (unrecognized section and content) Goals may [...] BE BASED ON THE PRIMARY CLINICAL RECORDS. [facility] [employer] provides no warranty or guarantee of the accuracy or completeness of information in this document.
== END 2024-09-13 08:31 | disposition home or self-care (01) ==
LOC: MAMMO 08:30
PROVIDERS: PCP Family Medicine; Visit Provider Family Medicine
DX: Z12.31 Encounter for screening mammogram for malignant neoplasm of breast (principal); R92.8 Other abnormal and inconclusive findings on diagnostic imaging of breast
CPT/HCPCS: 77063; 77067

== ENCOUNTER 2024-09-14 22:25 | Outpatient (REF) | payer BC, SELFPAY ==
--- OUTSIDE RECORDS SUMMARY | 2024-09-14 22:29 | XMS_ITS | CCD ---
Author Organization [facility] CliniSyhi Care Team Providers Care Overnight Babysitter Name Role Phone DR MARILYNN SILVA Primary Care Unavailable RONDA, DALLIN Admitting Unavailable RONDA, DALLIN Attending Unavailable RONDA, DALLIN Consulting Unavailable RICARDO, DR MARILYNN Bales Primary Care Unavailable HADLEY, DR BONG Rasheed Consulting Unavailable RONDA, DALLIN Admitting Unavailable RONDA, DALLIN Attending Unavailable RONDA, DALLIN Consulting Unavailable RONDA, DALLIN Admitting Unavailable SILVA, DR MARILYNN Bales Primary Care Unavailable RONDA, DALLIN Attending Unavailable RONDA, DALLIN Consulting Unavailable HADLEY, DR BONG Rasheed Consulting Unavailable RONDA, DALLIN Admitting Unavailable RONDA, DALLIN Attending Unavailable SILVA, DR MARILYNN Bales Primary Care Unavailable RONDA, DALLIN Consulting Unavailable HADLEY, DR BONG Rasheed Consulting Unavailable RONDA, DALLIN Admitting Unavailable RONDA, DALLIN Attending Unavailable SILVA, DR MARILYNN Bales Primary Care Unavailable RONDA, DALLIN Consulting Unavailable RICARDO, DR MARILYNN Bales Primary Care Unavailable RICARDO, DR MARILYNN Bales Admitting Unavailable SILVA, DR MARILYNN Bales Attending Unavailable RICARDO, DR MARILYNN Bales Consulting Unavailable Marilynn Silva Unavailable RONDA, DALLIN Attending Unavailable MARILYNN SILVA Primary Care Physician Eleno Lund MD Attending Provider [phone] Eleno Lund Attending Unavailable Eleno Lund Admitting Unavailable SHERWIN, Eleno Patel Attending Unavailable SID HORNER Unavailable Eleno LUND Attending Unavailable Eleno LUND Attending Unavailable Marilynn Silva MD Primary Care Provider [phone] Marilynn Silva MD Attending Provider Marilynn Silva MD Primary Care Provider Allergies Allergy Classification Reported Allergen(s) Allergy Type Date of Onset Reaction(s) Facility (1 source) No Known Medication Allergies; Translations: [No Known Medication Allergies] Propensity to adverse reactions (disorder) [facility] Repository Medications Current Medications Medication Drug Class(es) Dates Sig (Normalized) Sig (Original) azithromycin 250 mg oral tablet (1 source) Macrolide Antimicrobial Start: 01-06-2023 Azithromycin 250 MG as directed Orally 2 tabs po today, then 1 tab daily x 4 more days for 5 Dec, Active 24 hr metFORMIN hydrochloride 500 mg extended release oral tablet (10 sources) Biguanide Start: 06-22-2024 take 1 tablet by mouth once daily at mealtime metFORMIN XR (Glucophage-XR) 500 MG 24 hr tablet Indications: Encounter for weight management TAKE ONE TABLET BY MOUTH EVERY EVENING WITH A MEAL 90 tablet 3 06/22/2024 Active Start: 11-24-2023 metformin Refi lls(s) 0 Start Date: 11/24/23 Status: Ordered Start: 08-25-2023 take 1 tablet by tara th once daily Metformin 500 mg tablet [...] day for 30 days Aug, Active tizanidine (10 sources) Central alpha-2 Adrenergic Agonist Start: 11-24-2023 tizanidine Refills(s ) 0 Start Date: 11/24/23 Status: Ordered Start: 08-25-2023 take 1 tablet by tara th every eight hours as needed tiZANidine (Zanaflex) 2 MG tablet Take 1 tablet by mouth every 8 (eight) hours if needed 08/25/2023 Active Start: 08-25-2023 take 1 tablet by tara [...] Orally Three times a day Active Zomig (7 sources) Serotonin-1b and Serotonin-1d Receptor Agonist Start: [...] mg /24 hrs Complies with drug therapy ZOLMitriptan (Zo leslie) 5 MG nasal solution 1 (one) time each day at the same time Active Zomig 5 MG 1 spr ay at [...] Basophils (Bld) [#/Vol] 0.1 10 3/uL 0.0-0.1 [facility] Basophils/100 WBC Auto (Bld) Ordered By: Marilynn Silva on 08-16-2024 Basophils/100 WBC (Bld) 0.7 % 0.2-2.0 [facility] Cholesterol in LDL Calc [Mas s/Vol]Ordered By: Marilynn Silva on 08-16-2024 Cholesterol in LDL [Mass/Vol] 63.8 mg/dL [facility] Comment on above: <100 mg/dl [id number] 0-129 mg/dl NEAR OR ABOVE [id number] mg/dl BORDERLINE [id number] mg/dl HIGH>190 mg/dl VERY HIGH Cholesterol in VLDL Calc [Ma ss/Vol]Ordered By: Marilynn Silva on 08-16-2024 Cholesterol in VLDL [Mass/Vol] 11.2 mg/dL [facility] Eosinophils/100 WBC Auto (Bl d)Ordered By: Marilynn Silva on 08-16-2024 Eosinophils/100 WBC (Bld) 1.6 % 0.9-7.0 [facility] Erythrocyte distribution wid th Auto (RBC) [Ratio]Ordered By: Marilynn Silva on 08-16-2024 Erythrocyte distribution width (RBC) [Ratio] 12.6 % 11.0-15.0 [facility] Estimated glomerular filtrat ion rate (GFR) non- AmericanOrdered By: Marilynn Silva on 08-16-2024 GFR/1.73 sq M.predicted among non-blacks MDRD (S/P/Bld) [Vol rate/Area] mL/min/{1.73_m2} >=60 mL/min/1.73 m 2 [facility] Globulin Calc (S) [Mass/Vol] Ordered By: Marilynn Silva on 08-16-2024 Globulin (S) [Mass/Vol] 3.3 g/dL [facility] Glucose mean value [Mass/vol ume] in Blood Estimated from glycated hemoglobinOrdered By: Marilynn Silva on 08-16-2024 Average glucose Estimated from glycated hemoglobin (Bld) [Mass/Vol] 111 mg/dL [facility] Hematocrit Auto (Bld) [Volum e fraction]Ordered By: Marilynn Silva on 08-16-2024 Hematocrit (Bld) [Volume fraction] 39.4 % 36.0-48.0 [facility] Hemoglobin A1c percentageOrd ered By: Marilynn Silva on 08-16-2024 HbA1c (Bld) [Mass fraction] 5.5 % 4.5-6.2 [facility] Comment on above: ADA RECOMMENDED LIMI T 4.0 - 6.0ADA THERAPEUTIC TARGET < 7.0ACTION SUGGESTED> 7.0 Hemoglobin [Mass/volume] in BloodOrdered By: Marilynn Silva on 08-16-2024 Hemoglobin (Bld) [Mass/Vol] 13.1 g/dL 12.0-16.0 [facility] Laboratory - Chemistry and C hemistry - challengeOrdered By: Marilynn Silva on 08-16-2024 Albumin [Mass/Vol] 3.8 g/dL 3.4-5.0 [facility] ALP [Catalytic activity/Vol] 78 U/L 46-116 [facility] ALT [Catalytic activity/Vol] 13 U/L Low 14-59 [facility] AST [Catalytic activity/Vol] 15 U/L 15-37 [facility] Bilirubin [Mass/Vol] 0.9 mg/dL 0.2-1.0 [facility] Calcium [Mass/Vol] 8.8 mg/dL 8.5-10.1 [facility] Chloride [Moles/Vol] 105 mmol/L 98-107 [facility] Cholesterol [Mass/Vol] 134 mg/dL <=200 [facility] Cholesterol in HDL [Mass/Vol] 59 mg/dL 40-60 [facility] Comment on above: > or =60 mg/dl - LOW CARDIOVASCULAR RISK<40 mg/dl - HIGH CARDIOVASCULAR RISK CO2 [Moles/Vol] 29.2 mmol/L 21.0-32.0 [facility] Creatinine [Mass/Vol] 0.86 mg/dL 0.55-1.02 [facility] GFR/1.73 sq M.predicted MDRD (S/P/Bld) [Vol rate/Area] mL/min/{1.73_m2} >=60 mL/min/1.73 m 2 [facility] Glucose [Mass/Vol] 87 mg/dL 74-106 [facility] Potassium [Moles/Vol] 4.4 mmol/L 3.5-5.1 [facility] Protein [Mass/Vol] 7.1 g/dL 6.4-8.2 [facility] Sodium [Moles/Vol] 141 mmol/L 136-145 [facility] Triglyceride [Mass/Vol] 56 mg/dL <=150 [facility] TSH Qn 1.797 m[IU]/L 0.358-3.740 [facility] Urea nitrogen [Mass/Vol] 13.0 mg/dL 7.0-18.0 [facility] Urea nitrogen/Creatinine [Mass ratio] 15.1 mg/mg [facility] Laboratory - Hematology and Cell countsOrdered By: Marilynn Silva on 08-16-2024 Immature granulocytes/100 WBC (Bld) 0.3 % 0.0-0.5 [facility] Leukocytes [#/volume] correc minerva for nucleated erythrocytes in Blood by Automated counOrdered By: Marilynn Silva on 08-16-2024 WBC corrected for nucl RBC Auto (Bld) [#/Vol] 7.4 10 3/uL 4.0-11.0 [facility] Lymphocytes Auto (Bld) [#/Vo l]Ordered By: Marilynn Silva on 08-16-2024 Lymphocytes (Bld) [#/Vol] 2.8 10 3/uL 1.2-3.8 [facility] Lymphocytes/100 WBC Auto (Bl d)Ordered By: Marilynn Silva on 08-16-2024 Lymphocytes/100 WBC (Bld) 37.6 % 20.5-60.0 [facility] MCH Auto (RBC) [Entitic mass ]Ordered By: Marilynn Silva on 08-16-2024 MCH (RBC) [Entitic mass] 29.4 pg 26.7-34.0 [facility] MCHC Auto (RBC) [Mass/Vol]Or dered By: Marilynn Silva on 08-16-2024 MCHC (RBC) [Mass/Vol] 33.2 g/dL 29.9-35.2 [facility] MCV Auto (RBC) [Entitic vol] Ordered By: Marilynn Silva on 08-16-2024 MCV (RBC) [Entitic vol] 88.5 fL 81.0-99.0 [facility] Monocytes Auto (Bld) [#/Vol] Ordered By: Marilynn Silva on 08-16-2024 Monocytes (Bld) [#/Vol] 0.6 10 3/uL 0.3-0.8 [facility] Monocytes/100 WBC Auto (Bld) Ordered By: Marilynn Silva on 08-16-2024 Monocytes/100 WBC (Bld) 8.7 % 1.7-12.0 [facility] Neutrophils Auto (Bld) [#/Vo l]Ordered By: Marilynn Silva on 08-16-2024 Neutrophils (Bld) [#/Vol] 3.8 10 3/uL 1.4-6.5 [facility] Neutrophils/100 WBC Auto (Bl d)Ordered By: Marilynn Silva on 08-16-2024 Neutrophils/100 WBC (Bld) 51.1 % 43.0-75.0 [facility] No Panel InformationOrdered By: Marilynn Silva on 08-16-2024 Eosinophils # (Auto) 0.1 10 3/uL 0.0-0.7 [facility] Immature Granulocyte # (Auto) 0.02 10 3/uL 0.00-0.03 [facility] Platelet mean volume Auto (B ld) [Entitic vol]Ordered By: Marilynn Silva on 08-16-2024 Platelet mean volume (Bld) [Entitic vol] 10.1 fL 9.5-13.5 [facility] Platelets Auto (Bld) [#/Vol] Ordered By: Marilynn Silva on 08-16-2024 Platelets (Bld) [#/Vol] 336 10 3/uL 150-450 [facility] RBC Auto (Bld) [#/Vol]Ordere d By: Marilynn Silva on 08-16-2024 RBC (Bld) [#/Vol] 4.45 10 6/uL 4.20-5.40 [facility] Serum or plasma albumin/glob ulin mass ratioOrdered By: Marilynn Silva on 08-16-2024 Albumin/Globulin [Mass ratio] 1.2 {ratio} [facility] Serum or plasma anion gap de terminationOrdered By: Marilynn Silva on 08-16-2024 Anion gap [Moles/Vol] 11.2 mmol/L [facility] Serum or plasma total choles terol/high density lipoprotein (HDL) cholesterol mass ratOrdered By: Marilynn Silva on 08-16-2024 Cholesterol.total/Chol esterol in HDL [Mass ratio] 2.3 {ratio} [facility] Comment on above: 3.3 - 4.4 LOW RISK4. 4 - 7.1 AVERAGE RISK7.1 - 11.0 MODERATE RISK>11.0 HIGH RISK Reminderson 01-12-2024 Reminders Reminders From: Heaven Cochran LPN To: N - Clinical; Sent: 01/12/2024 07:49:33 EST Show up: 12/06/2028 07:00:00 EDT Subject: colonoscopy recall Due Date/Time: 01/06/2029 07:00:00 EST Reminder/Recall Patient due for surveillance colonoscopy 01/06/29 due to history of tubular adenoma. Normal [facility] Pathology study report docum entOrdered By: Stanley Ansari on 01-09-2024 Pathology study [facility] Other Phone: HCG ( test) Alba vazquez Ql (U)on 01-07-2024 HCG ( test) Ql (U) Urine human chorionic gonadotropin (hCG) detection by immunoassay NEGATIVE [facility] Flakito 01-07-2024 L ------ Specimen: [id number] Received: 01/08/24 Status: ADELSO Vivas Num: [id number] Spec Type: Surgical Subm Dr: Eleno Lund MD FACS Tissues: A Colon Biopsy (SIGMOID POLYP) Procedures: HE/2, Gross/Micro L4 Age/ Patient Sex Location Account Attending Physician Dora Turner 48/F [facility] [id number] Eleno Lund MD FACS SPEC NUM: [id number] RECD: 01/08/24 STATUS: ADELSO VIVAS NUM: [id number] SHARONA: 01/07/[address] [facility] [address]: Eleno Lund MD FACS ENTERED: 01/08/[address] [address]: Jaya,Cristal SPEC TYPE: Surgical DEPT: KATRIN KOENIG ENTERED BY: [id number] RECV BY: [id number] ORDERED: HE/2, Gross/Micro L4 ORDERED: HE/2, Gross/Micro [...] submitted in a single cassette. (1, ns, [id number]) Microscopic Description Microscopic examination is performed. CPT Codes 74538 Specimen: [id number] Received: 01/08/24 Status: ADELSO Vivas Num: [id number] Spec Type: Surgical Subm Dr: Eleno Lund MD [facility] Tissues: A Colon Biopsy (SIGMOID POLYP) Procedures: HE/2, Gross/Micro L4 Patient: Dora Turner [id number] (Continued) Signed (signature on file) Stanley Ansari MD 01/09/24 1142 Normal [facility] Ambulatory Visit Summaryon 1 Ambulatory [...] for choosing us for your care. Normal [facility] Human papilloma virus 16+18+ 31+33+35+39+45+51+52+56+58+59+66+68 DNA [Presence] in Isak 09-10-2023 HPV 16+18+31+33+35+39+45+5 1+52+56+58+59+66+68 DNA Probe+sig amp Ql (Cvx) Negative Negative [facility] Comment on above: This nucleic acid am plification test detects fourteen high- risk HPV types (16,18,31,33,35,39,45,51,52,56,58,59,66,68)without differentiation.Performed at: = - [address] [id number] Director: Natividad Spencer MD, Phone: [phone] at: [address] [id number] Director: Natividad Spencer MD, Phone: [phone] No Panel Informationon 09-09 HPV High Risk Other Comment Note . [facility] Comment on above: TESTS RESULT FLAG UN ITS REF RANGE LAB DIAGNOSIS: 02 NEGATIVE FOR INTRAEPITHELIAL LESION OR MALIGNANCY. CELLULAR CHANGES ASSOCIATED WITH INFLAMMATION ARE PRESENT.Specimen adequacy: 02 Satisfactory for evaluation. Endocervical and/or squamous metaplastic cells (endocervical component) are present.Performed by: 02 Keagan Leung Gambling Supervisor ([facility]). 02Note: Note 02 The Pap smear [...] Low,>-Panic High,A-Abnormal,AA-Critical Abnormal -----Performed at:02 WB [facility] [address] [place] [address] Natividad Spencer MD, Reference Lab Test Patient Age Note . [facility] Comment on above: TESTS RESULT FLAG UN ITS REF RANGE LAB Clinician Provided Cytology Information Source.............Cervix;Endocervix No. of containers..01 ThinPrep VialAge Ilia YANEZ Kay... FLAG LEGEND: L-Low Normal,H-High Normal,LL-Alert Low,HH-Alert High <-Panic Low,>-Panic High,A-Abnormal,AA-Critical Abnormal -----Performed at:01 =[facility] [address] [place] [address] Natividad Spencer MD, Basophils Auto (Bld) [#/Vol] on 08-21-2023 Basophils (Bld) [#/Vol] 0.1 10 3/uL 0.0-0.1 [facility] Basophils/100 WBC Auto (Bld) on 08-21-2023 Basophils/100 WBC (Bld) 1.2 % 0.2-2.0 [facility] Cholesterol in LDL Calc [Mas s/Vol]on 08-21-2023 Cholesterol in LDL [Mass/Vol] 73.4 mg/dL [facility] Comment on above: <100 mg/dl [id number] 0-129 mg/dl NEAR OR ABOVE [id number] mg/dl BORDERLINE [id number] mg/dl HIGH>190 mg/dl VERY HIGH Cholesterol in VLDL Calc [Ma ss/Vol]on 08-21-2023 Cholesterol in VLDL [Mass/Vol] 20.6 mg/dL [facility] Eosinophils/100 WBC Auto (Bl d)on 08-21-2023 Eosinophils/100 WBC (Bld) 2.2 % 0.9-7.0 [facility] Erythrocyte distribution wid th Auto (RBC) [Ratio]on 08-21-2023 Erythrocyte distribution width (RBC) [Ratio] 12.2 % 11.0-15.0 [facility] Estimated glomerular filtrat ion rate (GFR) non- Americanon 08-21-2023 GFR/1.73 sq M.predicted among non-blacks MDRD (S/P/Bld) [Vol rate/Area] mL/min/{1.73_m2} >=60 [facility] Globulin Calc (S) [Mass/Vol] on 08-21-2023 Globulin (S) [Mass/Vol] 3.4 g/dL [facility] Glucose mean value [Mass/vol ume] in Blood Estimated from glycated hemoglobinon 08-21-2023 Average glucose Estimated from glycated hemoglobin (Bld) [Mass/Vol] 100 mg/dL [facility] Hematocrit Auto (Bld) [Volum e fraction]on 08-21-2023 Hematocrit (Bld) [Volume fraction] 41.4 % 36.0-48.0 [facility] Hemoglobin [Mass/volume] in Bloodon 08-21-2023 Hemoglobin (Bld) [Mass/Vol] 13.9 g/dL 12.0-16.0 [facility] Laboratory - Chemistry and C hemistry - challengeon 08-21-2023 Albumin [Mass/Vol] 4.0 g/dL 3.4-5.0 [facility] ALP [Catalytic activity/Vol] 87 U/L 46-116 [facility] ALT [Catalytic activity/Vol] 12 U/L Low 14-59 [facility] AST [Catalytic activity/Vol] 12 U/L Low 15-37 [facility] Bilirubin [Mass/Vol] 1.1 mg/dL High 0.2-1.0 [facility] Calcium [Mass/Vol] 8.9 mg/dL 8.5-10.1 [facility] Chloride [Moles/Vol] 100 mmol/L 98-107 [facility] Cholesterol [Mass/Vol] 147 mg/dL <=200 [facility] Cholesterol in HDL [Mass/Vol] 53 mg/dL 40-60 [facility] Comment on above: > or =60 mg/dl - LOW CARDIOVASCULAR RISK<40 mg/dl - HIGH CARDIOVASCULAR RISK CO2 [Moles/Vol] 27.1 mmol/L 21.0-32.0 [facility] Creatinine [Mass/Vol] 0.87 mg/dL 0.55-1.02 [facility] GFR/1.73 sq M.predicted MDRD (S/P/Bld) [Vol rate/Area] mL/min/{1.73_m2} >=60 [facility] Glucose [Mass/Vol] 86 mg/dL 74-106 [facility] Potassium [Moles/Vol] 4.3 mmol/L 3.5-5.1 [facility] Protein [Mass/Vol] 7.4 g/dL 6.4-8.2 [facility] Sodium [Moles/Vol] 137 mmol/L 136-145 [facility] Triglyceride [Mass/Vol] 103 mg/dL <=150 [facility] TSH Qn 2.481 m[IU]/L 0.358-3.740 [facility] Urea nitrogen [Mass/Vol] 10.0 mg/dL 7.0-18.0 [facility] Urea nitrogen/Creatinine [Mass ratio] 11.5 mg/mg [facility] Laboratory - Hematology and Cell countson 08-21-2023 HbA1c (Bld) [Mass fraction] 5.1 % 4.5-6.2 [facility] Comment on above: ADA RECOMMENDED LIMI T 4.0 - 6.0ADA THERAPEUTIC TARGET < 7.0ACTION SUGGESTED> 7.0 Immature granulocytes/100 WBC (Bld) 0.3 % 0.0-0.5 [facility] Leukocytes [#/volume] correc minerva for nucleated erythrocytes in Blood by Automated counon 08-21-2023 WBC corrected for nucl RBC Auto (Bld) [#/Vol] 7.8 10 3/uL 4.0-11.0 [facility] Lymphocytes Auto (Bld) [#/Vo l]on 08-21-2023 Lymphocytes (Bld) [#/Vol] 2.9 10 3/uL 1.2-3.8 [facility] Lymphocytes/100 WBC Auto (Bl d)on 08-21-2023 Lymphocytes/100 WBC (Bld) 37.3 % 20.5-60.0 [facility] MCH Auto (RBC) [Entitic mass ]on 08-21-2023 MCH (RBC) [Entitic mass] 29.1 pg 26.7-34.0 [facility] MCHC Auto (RBC) [Mass/Vol]on 08-21-2023 MCHC (RBC) [Mass/Vol] 33.6 g/dL 29.9-35.2 [facility] MCV Auto (RBC) [Entitic vol] on 08-21-2023 MCV (RBC) [Entitic vol] 86.8 fL 81.0-99.0 [facility] Monocytes Auto (Bld) [#/Vol] on 08-21-2023 Monocytes (Bld) [#/Vol] 0.6 10 3/uL 0.3-0.8 [facility] Monocytes/100 WBC Auto (Bld) on 08-21-2023 Monocytes/100 WBC (Bld) 8.0 % 1.7-12.0 [facility] Neutrophils Auto (Bld) [#/Vo l]on 08-21-2023 Neutrophils (Bld) [#/Vol] 4.0 10 3/uL 1.4-6.5 [facility] Neutrophils/100 WBC Auto (Bl d)on 08-21-2023 Neutrophils/100 WBC (Bld) 51.0 % 43.0-75.0 [facility] No Panel Informationon 08-20 Eosinophils # (Auto) 0.2 10 3/uL 0.0-0.7 [facility] Immature Granulocyte # (Auto) 0.02 10 3/uL 0.00-0.03 [facility] Platelet mean volume Auto (B ld) [Entitic vol]on 08-21-2023 Platelet mean volume (Bld) [Entitic vol] 10.6 fL 9.5-13.5 [facility] Platelets Auto (Bld) [#/Vol] on 08-21-2023 Platelets (Bld) [#/Vol] 364 10 3/uL 150-450 [facility] RBC Auto (Bld) [#/Vol]on RBC (Bld) [#/Vol] 4.77 10 6/uL 4.20-5.40 [facility] Serum or plasma albumin/glob ulin mass ratioon 08-21-2023 Albumin/Globulin [Mass ratio] 1.2 {ratio} [facility] Serum or plasma anion gap de terminationon 08-21-2023 Anion gap [Moles/Vol] 14.2 mmol/L Fi [facility] Serum or plasma total choles terol/high density lipoprotein (HDL) cholesterol mass rola 08-21-2023 Cholesterol.total/Chol esterol in HDL [Mass ratio] 2.8 {ratio} [facility] Comment on above: 3.3 - 4.4 LOW RISK4. 4 - 7.1 AVERAGE RISK7.1 - 11.0 MODERATE RISK>11.0 HIGH RISK PAP ACOG PANEL 2: 30 to 65on 06-11-2022 . . Normal [facility] Comment on above: Result Comment: Perf ormed at: WB Performed By: #### [id number] #### [facility] [address] [place] [address] Dr. Sobia Iqbal Age Gdln ACOG Testing 30-65 Normal [facility] Comment on above: Performed By: #### [id number] #### [facility] [address] [address] [address] Sobia Iqbal DIAGNOSIS: Comment Normal [facility] Comment on above: Result Comment: NEGA TIVE FOR INTRAEPITHELIAL LESION OR MALIGNANCY. Performed at: WB Performed By: #### [id number] #### [facility] [address] [address] [address] Sobia Iqbal HPV Aptima Negative Normal Negative [facility] Comment on above: Result Comment: This nucleic acid amplification test detects fourteen high-risk HPV types (16,18,31,33,35,39,45,51,52,56,58,59,66,68) without differentiation. Performed at: =G Performed By: #### [id number] #### [facility] [address] [place] [address] Dr. Sobia Iqbal HPV Genotype Reflex Comment Normal [facility] Comment on above: Result Comment: Crit erlarissa not met, HPV Genotype not performed. Performed at: WB Performed By: #### [id number] #### [facility] [address] [place] [address] Dr. Sobia Iqbal Methodology: Comment Normal [facility] Comment on above: Result Comment: This liquid based ThinPrep(R) pap test was screened with the use of an image guided system. Performed at: WB Performed By: #### [id number] #### [facility] [address] [place] [address] Dr. Sobia Iqbal Note: Comment Normal [facility] Comment on above: Result Comment: The Pap smear is a screening test designed to aid in the detection of premalignant and malignant conditions of the uterine cervix. It is not a diagnostic procedure and should not be used as the sole means of detecting cervical cancer. Both false-positive and false-negative reports do occur. . Performed at: WB Performed By: #### [id number] #### [facility] [address] [place] [address] Dr. Sobia Iqbal Performed by: Comment Normal [facility] Comment on above: Result Comment: Gely Esquivel, Gambling Supervisor (ASCP) Performed at: WB Performed By: #### [id number] #### [facility] [address] [place] [address] Dr. Sobia Iqbal Specimen adequacy: Comment Normal [facility] Comment on above: Result Comment: Sati sfactory for evaluation. Endocervical and/or squamous metaplastic cells (endocervical component) are present. Performed at: WB Performed By: #### [id number] #### [facility] [facility] [address] [place] [address] Dr. Sobia Iqbal US PELVIS AND TRANSVAGon [...] BONG BUTCHER Date: 2022-06-10 18:15 Normal [facility] CBC AUTO DIFFon 09-25-2021 BASO # 0.1 103/ul Normal 0.0-0.1 [facility] Comment on above: Performed By: #### C BC ####[facility] [address] [place], [place] [address]Dr. Sobia Iqbal Basophils/100 WBC (Bld) 0.7 % Normal 0.2-2.0 [facility] Comment on above: Performed By: #### C BC ####[facility] I[address] [place], [place] [address]DrTerry Iqbal EO # 0.3 103/ul Normal 0.0-0.7 [facility] Comment on above: Performed By: #### C BC ####[facility] [address] [place], [place] [address]DrTerry Iqbal Eosinophils/100 WBC (Bld) 3.0 % Normal 0.9-7.0 [facility] Comment on above: Performed By: #### C BC ####[facility] [address] [place], [place] [address]DrTerry Iqbal Erythrocyte distribution width (RBC) [Ratio] 12.5 % Normal 11.0-15.0 [facility] Comment on above: Performed By: #### C BC ####[facility] [address] [place], [place] [address]DrTerry Iqbal Hematocrit (Bld) [Volume fraction] 43.1 % Normal 36.0-48.0 [facility] Comment on above: Performed By: #### C BC ####[facility] [address] [address]Dr. Sobia Rasheed Hemoglobin (Bld) [Mass/Vol] 14.7 g/dL Normal 12.0-16.0 [facility] Comment on above: Performed By: #### C BC ####[facility] O[address] [place], [place] [address]Dr. Marshaketan Rasheed IG # 0.03 10e3/ul Normal 0.00-0.03 [facility] Comment on above: Performed By: #### C BC ####[facility] [address] [place], [place] [address]Dr. Sobia Iqbal IG % 0.4 % Normal 0.0-0.5 [facility] Comment on above: Performed By: #### C BC ####[facility] [address] [place], [place] [address]Dr. Sobia Iqbal LYMPH # 2.5 103/ul Normal 1.2-3.8 [facility] Comment on above: Performed By: #### C BC ####[facility] [address] [place], [place] [address]DrTerry Iqbal Lymphocytes/100 WBC (Bld) 30.1 % Normal 20.5-60.0 [facility] Comment on above: Performed By: #### C BC ####[facility] Qympzeevbu[address] [place], [place] [address]Dr. Sobia Iqbal MANUAL DIFF REQ NO Normal [facility] Comment on above: Performed By: #### C BC ####[facility] [address] [address]DrTerry Iqbal MCH (RBC) [Entitic mass] 29.7 pg Normal 26.7-34.0 [facility] Comment on above: Performed By: #### C BC ####[facility] [address] [address]Dr. Sobia Iqbal MCHC (RBC) [Mass/Vol] 34.1 g/dL Normal 29.9-35.2 [facility] Comment on above: Performed By: #### C BC ####[facility] [address] [address]Dr. Sobia Iqbal MCV (RBC) [Entitic vol] 87.1 fL Normal 81.0-99.0 [facility] Comment on above: Performed By: #### C BC ####[facility] [address] [place], [place] [id number]. Sobia Iqbal MONO # 0.6 103/ul Normal 0.3-0.8 [facility] Comment on above: Performed By: #### C BC ####[facility] K[address] [place], [place] [address]Dr. Sobia Rasheed Monocytes/100 WBC (Bld) 7.6 % Normal 1.7-12.0 [facility] Comment on above: Performed By: #### C BC ####[facility] Y[address] [place], [place] [address]Dr. Sobia Iqbal NEUT # 4.9 103/ul Normal 1.4-6.5 [facility] Comment on above: Performed By: #### C BC ####[facility] [address] [place], [place] [address]Dr. Sobia Rasheed Neutrophils/100 WBC (Bld) 58.2 % Normal 43.0-75.0 [facility] Comment on above: Performed By: #### C BC ####[facility] Mr[address] [place], [place] [address]Dr. Sobia Rasheed Platelet mean volume (Bld) [Entitic vol] 9.9 fL Normal 9.5-13.5 [facility] Comment on above: Performed By: #### C BC ####[facility] [address] [place], [place] [address]Dr. Sobia Rasheed PLT 386 103/ul Normal 150-450 [facility] Comment on above: Performed By: #### C BC ####[facility] [address] [place], [place] [id number]. Sobia Iqbal RBC 4.95 106/ul Normal 4.20-5.40 [facility] Comment on above: Performed By: #### C BC ####[facility] [address] [id number]. Sobia Iqbal WBC 8.4 103/ul Normal 4.0-11.0 [facility] Comment on above: Performed By: #### C BC ####[facility] [address] [id number]. Sobia Iqbal GLYCOHEMOGLOBIN A1Con 2021 ADA RECOMMENDATION SEE BELOW Normal [facility] Comment on above: Result Comment: ADA RECOMMENDED LIMIT 4.0 - 6.0 ADA THERAPEUTIC TARGET < 7.0 ACTION SUGGESTED > 7.0 Performed By: #### A 1C #### [facility] [address] [place] [address] Dr. Sobia Iqbal Glucose [Mass/Vol] 117 mg/dL Normal [facility] Comment on above: Performed By: #### A 1C #### [facility] [address] [place] [address] Dr. Sobia Iqbal HbA1c (Bld) [Mass fraction] 5.7 % Normal 4.5-6.2 [facility] Comment on above: Performed By: #### A 1C #### [facility] [address] [place] [address] Dr. Sobia Iqbal LIPID PROFILEon 09-25-2021 CHOL-HDL RATIO NORM SEE BELOW Normal [facility] Comment on above: Result Comment: 3.3 - 4.4 LOW RISK 4.4 - 7.1 AVERAGE RISK 7.1 - 11.0 MODERATE RISK >11.0 HIGH RISK Performed By: #### T SH, LIPID, CMP #### [facility] [address] [address] [address] Sobia Iqbal Cholesterol [Mass/Vol] 153 mg/dL Normal <=200 [facility] Comment on above: Performed By: #### T SH, LIPID, CMP #### [facility] [address] [address] [address] Sobia Iqbal Cholesterol in HDL [Mass/Vol] 36 mg/dL Critically low 40-60 [facility] Comment on above: Performed By: #### T SH, LIPID, CMP #### [facility] [address] [place] [address] Dr. Sobia Iqbal Cholesterol in LDL [Mass/Vol] 97.8 mg/dL Normal [facility] Comment on above: Performed By: #### T SH, LIPID, CMP #### [facility] [address] [place] [address] Dr. Sobia Iqbal Cholesterol.total/Chol esterol in HDL [Mass ratio] 4.3 {ratio} Normal [facility] Comment on above: Performed By: #### T SH, LIPID, CMP #### [facility] [address] [place] [address] Dr. Sobia Iqbal HDL NORMAL > or = 60 mg/dl - LO W CARDIOVASCULAR RISK <40 mg/dl - HIGH CARDIOVASCULAR RISK Normal [facility] Comment on above: Performed By: #### T LEANNA, LIPID, CMP #### [facility] [address] [place] [address] Dr. Sobia Iqbal LDL CALC NORMAL SEE BELOW Normal [facility] Comment on above: Result Comment: <100 mg/dl OPTIMAL 100 - 129 mg/dl NEAR OR ABOVE OPTIMAL 130 - 159 mg/dl BORDERLINE HIGH 160 - 189 mg/dl HIGH >190 mg/dl VERY HIGH Performed By: #### T LEANNA, LIPID, CMP #### [facility] [address] [place] [address] Dr. Sobia Iqbal Triglyceride [Mass/Vol] 96 mg/dL Normal <=150 [facility] Comment on above: Performed By: #### T LEANNA, LIPID, CMP #### [facility] [address] [place] [address] Dr. Sobia Iqbal VLDL CALC 19.2 mg/dL Normal [facility] Comment on above: Performed By: #### T SH, LIPID, CMP #### [facility] [address] [place] [address] Dr. Sobia Iqbal PROF 14(COMP METB)on 022 Albumin [Mass/Vol] 3.7 g/dL Normal 3.4-5.0 [facility] Comment on above: Performed By: #### T SH, LIPID, CMP #### [facility] [address] [address] [address] Sobia Iqbal Albumin/Globulin [Mass ratio] 1.1 {ratio} Normal [facility] Comment on above: Performed By: #### T SH, LIPID, CMP #### [facility] [address] [address] [address] Sobia Iqbal ALP [Catalytic activity/Vol] 95 U/L Normal 46-116 [facility] Comment on above: Performed By: #### T LEANNA, LIPID, CMP #### [facility] [address] [address] [address] Sobia Iqbal ALT [Catalytic activity/Vol] 22 U/L Normal 14-59 [facility] Comment on above: Performed By: #### T LEANNA, LIPID, CMP #### [facility] [address] [address] [address] Sobia Iqbal Anion gap [Moles/Vol] 10.7 mmol/L Normal [facility] Comment on above: Performed By: #### T LEANNA, LIPID, CMP #### [facility] [address] [address] [address] Sobia Iqbal AST [Catalytic activity/Vol] 15 U/L Normal 15-37 [facility] Comment on above: Performed By: #### T LEANNA, LIPID, CMP #### [facility] [address] [address] [address] Sobia Iqbal Bilirubin [Mass/Vol] 0.8 mg/dL Normal 0.2-1.0 [facility] Comment on above: Performed By: #### T LEANNA, LIPID, CMP #### [facility] [address] [address] [address] Sobia Iqbal Calcium [Mass/Vol] 8.5 mg/dL Normal 8.5-10.1 [facility] Comment on above: Performed By: #### T LEANNA, LIPID, CMP #### [facility] [address] [address] [address] Sobia Iqbal Chloride [Moles/Vol] 103 mmol/L Normal 98-107 [facility] Comment on above: Performed By: #### T LEANNA, LIPID, CMP #### [facility] [address] [address] [address] Sobia Iqbal CO2 [Moles/Vol] 28.6 mmol/L Normal 21.0-32.0 [facility] Comment on above: Performed By: #### T SH, LIPID, CMP #### [facility] [address] [address] [address] Sobia Iqbal Creatinine [Mass/Vol] 0.90 mg/dL Normal 0.55-1.02 [facility] Comment on above: Performed By: #### T SH, LIPID, CMP #### [facility] [address] [address] [address] Sobia Iqbal EGFR-AF GUYANESE >60 Normal >=60 [facility] Comment on above: Performed By: #### T SH, LIPID, CMP #### [facility] [address] [place] [address] Dr. Sobia Iqbal EGFR-NON AF GUYANESE >60 Normal >=60 [facility] Comment on above: Performed By: #### T SH, LIPID, CMP #### [facility] [address] [place] [address] Dr. Sobia Iqbal Globulin (S) [Mass/Vol] 3.5 g/dL Normal [facility] Comment on above: Performed By: #### T SH, LIPID, CMP #### [facility] [address] [place] [address] Dr. Sobia Iqbal Glucose [Mass/Vol] 83 mg/dL Normal 74-106 [facility] Comment on above: Performed By: #### T SH, LIPID, CMP #### [facility] [address] [address] [address] Sobia Iqbal Potassium [Moles/Vol] 4.3 mmol/L Normal 3.5-5.1 [facility] Comment on above: Performed By: #### T SH, LIPID, CMP #### [facility] [address] [address] [address] Sobia Iqbal Protein [Mass/Vol] 7.2 g/dL Normal 6.4-8.2 [facility] Comment on above: Performed By: #### T SH, LIPID, CMP #### [facility] [address] [address] [address] Sobia Iqbla Sodium [Moles/Vol] 138 mmol/L Normal 136-145 [facility] Comment on above: Performed By: #### T SH, LIPID, CMP #### [facility] [address] [address] [address] Sobia Iqbal Urea nitrogen [Mass/Vol] 10.0 mg/dL Normal 7.0-18.0 [facility] Comment on above: Performed By: #### T LEANNA, LIPID, CMP #### [facility] [address] [address] [address] Sobia Iqbal Urea nitrogen/Creatinine [Mass ratio] 11.1 mg/mg Normal [facility] Comment on above: Performed By: #### T LEANNA, LIPID, CMP #### [facility] [address] [address] [address] Sobia Iqbal TSHon 09-25-2021 TSH 1.843 uIU/mL Normal 0.358-3.740 [facility] Comment on above: Performed By: #### T LEANNA, LIPID, CMP #### [facility] [address] [address] [address] Sobia Iqbal MG MAMM SCREEN 3D LOLLY CADon 09-05-2021 MG MAMM SCREEN 3D LOLLY CAD Patient: DORA TURNER Exam Date: 09/05/2021 : 1975 Gender:F Ordering : DR DALLIN BOND . Admission #: [id number] Family : DR MARILYNN SILVA M.D. Order #: [id number] CLICK HERE TO VIEW EXAM RADIOLOGY REPORT [...] Treatments None Family Cancers None LOCATION: [facility] BREAST COMPOSITION: Heterogeneously dense,which may obscure small [...] on 09/05/2021 at 08:24 Normal [facility] US PELVIS AND TRANSVAGon US PELVIS AND [...] BONG BUTCHER Date: 2021-07-17 14:15 Normal [facility] CA 125on 06-27-2021 Cancer Antigen (CA) 125 15.8 U/mL Normal 0.0-38.1 [facility] Comment on above: Result Comment: [employer] Electrochemiluminescence Immunoassay (ECLIA) . Values obtained with different assay methods or kits cannot be used interchangeably. Results cannot be interpreted as absolute evidence of the presence or absence of malignant disease. Performed By: #### C A 125 #### [facility] [address] [place] [address] Dr. Sobia Iqbal CEAon 06-27-2021 CEA 1.4 ng/mL Normal 0.0-4.7 [facility] Comment on above: Result Comment: Nons mokers <3.9 Smokers <5.6 . [employer] Electrochemiluminescence Immunoassay (ECLIA) . Values obtained with different assay methods or kits cannot be used interchangeably. Results cannot be interpreted as absolute evidence of the presence or absence of malignant disease. Performed By: #### C EA. #### [facility] [address] [place], [place] [address] Dr. Sobia Iqbal LDHon 06-26-2021 LDH 244 U/L Critically high 81-234 [facility] Comment on above: Performed By: #### P REGQNT, LDH ####[facility] [address] [place], [place] [address]Dr. Sobia Iqbal PREG QUANT HCGon 06-26-2021 HCG QUANT <1 Normal [facility] Comment on above: Performed By: #### P REGQNT, LDH ####[facility] [address] [place], [place] [address]MhTerry Iqbal HCG RANGE SEE BELOW Normal [facility] Comment on above: Result Comment: 5-50 0-1 WEEK 40-300 1-2 WEEKS 100-1,000 2-3 WEEKS 500-6,000 3-4 WEEKS 5,000-200,000 1-2 MONTHS 10,000-100,000 2-3 MONTHS 3,000-50,000 2ND TRIMESTER 1,000-50,000 3RD TRIMESTER Performed By: #### P REGQNT, LDH ####[facility] [address] [id number] Iqbal Vital Signs Date Time Vital Sign Value Performing Clinician Facility 08-25-2024 10: Body height 162.56 cm Marilynn Silva MD Work Phone: [facility] 08-25-2024 10: Body mass index (BMI) [Ratio] 20.4 kg/m2 Marilynn Silva MD Work Phone: [facility] 08-25-2024 10: Body weight 53.97 kg Marilynn Silva MD Work Phone: [facility] 08-25-2024 10:27-0400 Diastolic blood pressure 72 mm[Hg] Marilynn Silva MD Work Phone: [facility] 08-25-2024 10:27-0400 Heart rate 72 /min Marilynn Silva MD Work Phone: [facility] 08-25-2024 10:27-0400 SaO2% (BldA) [Mass fraction] 99 % Marilynn Silva MD Work Phone: [facility] 08-25-2024 10:27-0400 Systolic blood pressure 107 mm[Hg] Marilynn Silva MD Work Phone: [facility] 12-09-2023 15:19-0400 Blood Pressure Location Eleno LUND [facility] [place] 12-09-2023 15:19-0400 Diastolic blood pressure 76 mm[Hg] Eleno LUND [facility] [place] 12-09-2023 15:19-0400 Heart rate 72 /min Eleno LUDN [facility] [place] 12-09-2023 15:19-0400 Respiratory rate 16 /min Eleno LUND [facility] 12-09-2023 15:19-0400 Systolic blood pressure 108 mm[Hg] Eleno LUND [facility] [place] 10-08-2023 09:07-0400 Body height 162.56 cm [facility] 10-08-2023 09:07-0400 Body mass index (BMI) [Ratio] 21.3 kg/m2 [facility] 10-08-2023 09:07-0400 Body weight 56.35 kg [facility] 10-08-2023 09:07-0400 Diastolic blood pressure 83 mm[Hg] [facility] 10-08-2023 09:07-0400 Heart rate 76 /min [facility] 10-08-2023 09:07-0400 Respiratory rate 12 /min [facility] 10-08-2023 09:07-0400 Systolic blood pressure 129 mm[Hg] [facility] 08-26-2023 13:40-0400 Body height 162.56 cm [facility] 08-26-2023 13:40-0400 Body mass index (BMI) [Ratio] 21.4 kg/m2 [facility] 08-26-2023 13:40-0400 Body weight 56.69 kg [facility] 08-26-2023 13:40-0400 Diastolic blood pressure 66 mm[Hg] [facility] 08-26-2023 13:40-0400 Heart rate 65 /min [facility] 08-26-2023 13:40-0400 Systolic blood pressure 100 mm[Hg] [facility] 10-08-2022 13:15-0400 Body height 162.56 cm Marilynn Silva Other [employer] [facility] Other 10-08-2022 13:15-0400 Body mass index (BMI) [Ratio] 25.57 kg/m2 Marilynn Silva Other [facility] Other 10-08-2022 13:15-0400 Body mass index (BMI) [Ratio] 27.12 kg/m2 Marilynn Silva Other [facility] Other 10-08-2022 13:15-0400 Body weight 67.59 kg Marilynn Silva Other [facility] Other 10-08-2022 13:15-0400 Body weight 71.67 kg Marilynn Silva Other [facility] Other 10-08-2022 13:15-0400 Diastolic blood pressure 74 mm[Hg] Marilynn Silva Other [facility] Other 10-08-2022 13:15-0400 Systolic blood pressure 110 mm[Hg] Marilynn Silva Other [facility] Other 09-10-2022 13:00-0400 Body height 162.56 cm Marilynn Silva Other [facility] Other 09-10-2022 13:00-0400 Body mass index (BMI) [Ratio] 25.74 kg/m2 Marilynn Silva Other [facility] Other 09-10-2022 13:00-0400 Body weight 68.04 kg Marilynn Silva Other [facility] Other 09-10-2022 13:00-0400 Diastolic blood pressure 80 mm[Hg] Marilynn Silva Other [facility] Other 09-10-2022 13:00-0400 Systolic blood pressure 125 mm[Hg] Marilynn Silva Other [facility] Other Encounters Encounter Date Encounter Type Care Provider Facility Start: 09-14-2024 End: 09-14-2024 Bamboo flowsheet Dallin Ronda DO Work Phone: [facility] Start: 09-14-2024 End: 09-14-2024 Bamboo flowsheet Dallin Ronda DO Work Phone: [facility] Start: 08-25-2024 End: 08-25-2024 ambulatory Marilynn Silva MD Work Phone: [facility] Work Phone: Start: 08-25-2024 End: 08-25-2024 Patient encounter procedure Marilynn Silva MD [facility] Work Phone: Start: 08-25-2024 End: 08-25-2024 Patient encounter status Marilynn Silva MD [facility] Start: 08-16-2024 Non-patient / Non-visit Marilynn tolbert MD -[facility] Work Phone: Start: 01-07-2024 End: 01-07-2024 ambulatory Eleno Lund [facility] Work Phone: Start: 01-07-2024 End: 01-07-2024 Departed Referred Eleno Lund MD Work Phone: [facility] Start: 01-07-2024 Non-patient / Non-visit Cachorro Lund MD Work Phone: [facility] Work Phone: Start: 01-07-2024 End: 01-07-2024 ambulatory Eleno Amanda DAEAyan Facility:CD:[id number] Start: 12-09-2023 End: 12-09-2023 ambulatory SID HORNER Facility: [facility] Start: 12-09-2023 End: 12-09-2023 Patient encounter procedure Eleno Amanda LUND [facility] [place] Start: 11-13-2023 ambulatory Eleno LUND Facility:[facility] [place] Start: 10-08-2023 End: 10-08-2023 ambulatory [facility] Work Phone: Start: 10-08-2023 End: 10-08-2023 Patient encounter procedure [facility] Work Phone: Start: 09-10-2023 Non-patient / Non-visit [facility] Work Phone: Start: 09-10-2023 End: 09-10-2023 ambulatory DALLIN BOND Not Available Start: 08-26-2023 End: 08-26-2023 ambulatory [facility] Work Phone: Start: 08-26-2023 End: 08-26-2023 Encounter for general adult medical examination without abnormal findings [facility] Start: 08-26-2023 End: 08-26-2023 Patient encounter procedure [facility] Work Phone: Start: 08-21-2023 Non-patient / Non-visit [facility] Work Phone: Start: 08-19-2023 Patient encounter status [facility] Start: 01-06-2023 (Televisit) Televisit Marilynn Silva [facility] Start: 01-06-2023 End: 01-06-2023 ambulatory Marilynn Silva Other [facility] Other Start: 10-08-2022 End: 10-08-2022 ambulatory Marilynn Silva Other [facility] Other Start: 10-08-2022 Office outpatient vi sit 10 minutes Marilynn Silva [facility] Start: 09-10-2022 End: 09-10-2022 ambulatory Marilynn Silva Other [employer] Other Start: 09-10-2022 Encounter for genera l adult medical examination without abnormal findings Marilynn Silva [facility] Start: 09-10-2022 Periodic preventive med est patient 40-64yrs Marilynn Silva [facility] Start: 06-10-2022 End: 06-11-[address] MARILYNN SILVA Facility:[facility] Start: 06-04-2022 End: 06-04-[address] MARILYNN SILVA Facility:[facility] Start: 10-04-2021 Adult health examination Sarah Silva Other [facility] Other Start: 10-04-2021 Gynecological examin ation normal Marilynn Silva Other [facility] Other Start: 09-29-2021 Encounter for genera l adult medical examination without abnormal findings DR MARILYNN SILVA [facility] Start: 09-25-2021 End: 09-26-[address] MARILYNN SILVA Facility:H1 Start: 09-25-2021 End: 09-26-2021 Encounter for general adult medical examination without abnormal findings DR MARILYNN SILVA Facility:[facility]1 Start: 09-05-2021 End: 09-06-[address] BONG BUTCHER Facility:[facility]1 Start: 07-17-2021 End: 07-18-[address] BONG BUTCHER Facility:[facility] Start: 06-26-2021 End: 06-27-2021 ambulatory DALLIN BOND Facility:[facility]1 Procedures Date Procedure Procedure Detail Performing Clinician Start: 09-10-2023 Mammography Dallin shelton DO Work Phone: Start: 09-10-2023 Microscopic observat ion [Identifier] in Cervix by Cyto stain Dallin Chowdhuryo DO Work Phone: Endometrial ablation Eleno NILL Extraction of wisdom tooth M jacinda NILL Lumpectomy of left breast Mi blanca NILL Reconstruction of nose Shayan mendoza NILL Screening for malign ant neoplasm of breast Marilynn Silva Other Tonsillectomy and adenoidectomy Eleno NILL Plan of Treatment Date Care Activity Detail Author Start: 09-09-2026 Screening for malign ant neoplasm of cervix [facility] Start: 10-25-2024 Influenza vaccination Influenza Vacc ine (#1) [facility] Start: 09-14-2024 End: 09-14-2024 Patient encounter procedure 09/14/2024 2:00 PM EDT Office Visit [facility] [address] [place] [address] Dallin Bond, DO [address] [place], [place] [id number] Arrived [facility] Comment on above: Arrived Start: 09-09-2024 Screening for malign ant neoplasm of breast Mammogram [facility] Start: 01-27-2024 ambulatory Ambulatory Facility:[facility] Start: 05-30-2003 Screening for malign ant neoplasm of cervix HPV/Cotest [facility] Start: 1975 Screening for malign ant neoplasm of colon [facility] XR Sacrum and Coccyx GE 2 Views [facility] Immunizations Immunization Date Immunization Notes Care Provider Ricarda briseno 01-16-2024 influenza virus vaccine, unspecified formulation Dallin Bond DO Work Phone: [facility] 02-12-2021 SARS-CoV-2 (COVID-19 ) mRNA-1273 vaccine Eleno LUND [facility] Comment on above: Result Comment: 2023: [id number] 01-15-2021 SARS-CoV-2 (COVID-19 ) mRNA-1273 vaccine Eleno LUND [facility] Comment on above: Result Comment: 2023: [id number] Payers Date Payer Category Payer Self-pay 2023 Unknown [id number] 2022 [facility] [employer] [id number] 2022 Unknown [id number] 2019 Unknown [id number] 1975 Unknown [id number]. 593 1973 Unknown [id number]. 593 1973 Unknown [id number] [id number]. 593 1973 Unknown [id number] 2.16.840.1.421168.3.579.2. 593 1973 Unknown [id number] 2.16.840.1.047273.3.579.2. 593 1973 Unknown [id number] 2.16.840.1.744119.3.579.2. 593 1973 Unknown [id number] 2.16.840.1.243241.3.579.2. 1259 1973 Unknown [id number] 2.16.840.1.084485.3.579.2. 727 1973 Unknown [id number] 2.16.840.1.612015.3.579.2. 727 1973 Unknown [id number] 2.16.840.1.870084.3.579.2. 727 Unknown [id number] [id number]. 531 Social History Date Type Detail Facility Unknown if ever smoked [facility] Other Sex Assigned At [facility] Start: 08-26-2023 End: 08-12-2024 Tobacco smoking status VTIS Ex-smoker (finding) [facility] Start: 1975 Sex Assigned At Female F [facility] Tobacco smoking status Never [facility] Start: 01-09-2024 Sex Female (finding) [facility] Tobacco smoking status VTIS Tobacco smoking consumption unknown [facility] Start: 1975 Sex assigned at Not on file [facility] Functional Status Date Assessment Result Facility 12-09-2023 Functional Status N/A [facility] Clinical Notes 09-10-2022 to 12-09-2023 Note Date [...] (COVID-19) mRNA-1273 vaccine 01/15/2021 Recorded 2023-11-24: [id number] [facility] Comment on above: Result Comment: Elec tronically [...] of diseases classified elsewhere (ICD-10 - B96.89) [facility] Other 08-15-2023 Evaluation note* Encounter Date Diagnosis [...] to ER and Follow-up with me immediately. [facility] Other 08-15-2023 Evaluation note* Encounter Date Diagnosis [...] (BMI 25.0-29.9) (ICD-10 - E66.3) as above [facility] Other 07-18-2023 Evaluation note* Encounter Date Diagnosis [...] to ER and Follow-up with me immediately. [facility] Other Evaluation + Plan note No data available for this section [facility] Evaluation note* Diagnosis Onset Date Resolution Status Wellness examination acute [facility] Work Phone: Evaluation noteNo assessment information available [facility] Work Phone: Evaluation note* Diagnosis Onset Date Resolution Status Admit Date Coccydynia acute August 25, 2024 10:23am Wellness examination acute August 25, 2024 10:23am [facility] Work Phone: History general Narrative - Reported* Type Description Date Medical History Migraines Medical History PCOS/ insulin resistant Surgical History T & A 1982 Surgical History Ablation 2017 Surgical History Rhinoplasty 1989 Surgical History Left Breast, Lumpectomy 2000 [facility] Other Hospital Discharge instructions No data available for this section [facility] Progress note No data available for this section [facility] Reason for referral (narrative)No reason for referral [facility] Work Phone: Summary Purpose Family History Relationship [...] and content) DATE CREATED AUTHOR 06/13/2022 [facility] DATE CREATED AUTHOR AUTHOR'S ORGANIZ ATION 09/14/2023 [facility] EPIC DATE CREATED AUTHOR AUTHOR'S ORGANIZ ATION 01/10/2024 [facility] DATE CREATED AUTHOR AUTHOR'S ORGANIZ ATION 01/13/2024 [facility] REASON FOR VISIT (unrecogniz ed section and content) Wellness1 month Follow up1 m [facility] Follow upSICK, TESTING FOR COVID Care Teams [...] August 25, 2024 End: August 25, 2024 Overnight Babysitter Relationship Specialty Start Date End Date Marilynn Silva MD [facility] [place] [address] PCP - General Family Medicine 09/10/23 Goals (unrecognized section and content) Goals may [...] THE PRIMARY CLINICAL RECORDS. [facility] [employer] [facility]. provides no warranty or guarantee of the accuracy or completeness of information in this document.
[2024-09-17 16:09] LABS: Age Gdln ACOG Testing Note (.); IGP, Aptima HPV, rfx 16/18,45 Note (.)
== END 2024-09-14 22:26 | disposition home or self-care (01) ==
LOC: LAB 22:25
PROVIDERS: PCP Family Medicine; Visit Provider Obstetrics & Gynecology
DX: Z01.419 Encounter for gynecological examination (general) (routine) without abnormal findings (principal)
CPT/HCPCS: 87624; 88175

== ENCOUNTER 2024-09-16 07:48 | Outpatient (OUT) | payer BC, SELFPAY ==
--- OUTSIDE RECORDS SUMMARY | 2024-09-14 14:00 | XMS_ITS | Encounter Summary ---
Author Organization [facility] Address [address] [place] [address] Care Team Providers Care Adjunct Communications Faculty Member Name Role Phone Marilynn Schaefer MD Primary Care Provider [phone] Reason for Visit * Reason Comments Well Women Visit Encounter Details Date Type Department Care Team (Late Contact Info) Description 09/14/2024 2:00 PM EDT Office Visit [facility] [address] [place] [address] Ethan Bond, DO [address] [place] [address] Well woman exam with routine gynecological exam; Encounter for screening mammogram for malignant neoplasm of breast; Postmenopausal state; Mass of left breast on mammogram; Other benign mammary dysplasias of left breast; Unspecified lump in the left breast, upper outer quadrant Social History Tobacco Use Types Packs/Day Years Used Date Smoking Tobacco: Never Assessed Comments No Sex and Gender Information Value Date Recorded Sex Assigned at Not on file Legal Sex Female 11:47 PM EDT Gender Identity Not on file Sexual Orientation Not on file documented as of this encounter Last Filed Vital Signs Vital Sign Reading Time Taken Comments Blood Pressure 102/76 09/14/2024 2:19 PM EDT Pulse - - Temperature - - Respiratory Rate - - Oxygen Saturation - - Inhaled Oxygen Concentration - - Weight 54.4 kg (120 lb) 09/14/2024 2:19 PM EDT Height - - Body Mass Index 20.6 09/10/2023 1:44 PM EDT documented in this encounter Plan of Treatment Upcoming Encounters Date Type Department Care Team (Late st Contact Info) Description 09/20/2025 3:00 PM EDT Procedure Visit [facility] [address] [place] [address] Ethan Bond, [address] [place] [address] Scheduled Orders Name Type Priority Associated Diagnoses Orde r Schedule DEXA bone density Imaging Routine Postmenopausal state Expected: 09/14/2024 (Approximate), Expires: 09/14/2025 THIN PREP TIS PAP AND HR HPV DNA Pathology and Cytology Routine Well woman exam with routine gynecological exam Ordered: 09/14/2024 Left mammogram, additional views Imaging Routine Mass of left breast on mammogram Other benign mammary dysplasias of left breast Expected: 09/14/2024, Expires: 11/15/2025 Left breast US complete Imaging Routine Mass of left breast on mammogram Unspecified lump in the left breast, upper outer quadrant Expected: 09/14/2024, Expires: 11/15/2025 documented as of this encounter Visit Diagnoses Diagnosis Well woman exam with routine gynecological exam Routine gynecological examination Encounter for screening mammogram for malignant neoplasm of breast Postmenopausal state Asymptomatic postmenopausal status (age-related) (natural) Mass of left breast on mammogram Other benign mammary dysplasias of left breast Unspecified lump in the left breast, upper outer quadrant documented in this encounter Care Teams Adjunct Communications Faculty Member Relationship Specialty Start Date End Date Marilynn Schaefer MD [address] [place] [address] PCP - General Family Medicine 09/10/23 documented as of this encounter
--- OUTSIDE RECORDS SUMMARY | 2024-09-16 07:49 | XMS_ITS | Encounter Summary ---
Author Organization [facility] Address [address] [facility] [place] [address] Care Team Providers Care Hairspring Truing Inspector Name Role Phone Marilynn Schaefer MD Primary Care Provider [phone] Encounter Details Date Type Department Care Team (Late st Contact Info) Description 09/14/2024 Bamboo flowsheet [facility] OB [address] [facility] [address] Ethan Bond, DO [address] [facility] [address] [place], [facility] Social History Tobacco Use Types Packs/Day Years [...] 09/20/2025 3:00 PM EDT Procedure Visit [facility] [address] [facility] [place] [place] [address] Ethan Bond DO [address] [place] [id number] documented as of this encounter Visit Diagnoses Not on filedocumented in this encounter Care Teams Hairspring Truing Inspector Relationship Specialty Start Date End Date Marilynn Schaefer MD [address] [place] [address] PCP - General Family Medicine 09/10/23 documented as of this encounter
--- OUTSIDE RECORDS SUMMARY | 2024-09-16 07:49 | XMS_ITS | Encounter Summary ---
Author Organization [facility] Address [address] [facility] [place] [address] Care Team Providers Care Cost Manager Name Role Phone Marilynn Schaefer MD Primary Care Provider Encounter Details Date Type Department Care Team (Late Contact Info) Description 09/13/[address] [facility] [address] [facility] [place] [address] Ethan Bond, DO [address] [place], [facility] Social History Tobacco Use Types Packs/Day Years Used Date Smoking Tobacco: Never Assessed Comments No Sex and Gender Information Value Date Recorded Sex Assigned at Not on file Legal Sex Female 11:47 PM EDT Gender Identity Not on file Sexual Orientation Not on file documented as of this encounter Plan of Treatment Upcoming Encounters Date Type Department Care Team (Late Contact Info) Description 09/20/2025 3:00 PM EDT Procedure Visit [facility] [address] [facility] [facility] [place] [address] Ethan Bond DO [address] [place], [facility] documented as of this encounter Visit Diagnoses Not on filedocumented in this encounter Care Teams Cost Manager Relationship Specialty Start Date End Date Marilynn Schaefer MD [address] [place] [address] PCP - General Family Medicine 09/10/23 documented as of this encounter
--- OUTSIDE RECORDS SUMMARY | 2024-09-16 07:49 | XMS_ITS | Clinical Summary ---
Author Organization [facility] Healthcare Address [address] [facility] [place] [address] Care Team Providers Care Psychiatric Attendant Name Role Phone Marilynn Schaefer MD Primary Care Provider [phone] Allergies No known active allergies Medications tiZANidine [...] Encounters Date Type Department Care Team Description 09/14/2024 2:00 PM EDT Office Visit [facility] [address] [place] [address] Ethan Bond, DO Well woman exam with routine gynecological exam; Encounter for screening mammogram for malignant neoplasm of breast; Postmenopausal state; Mass of left breast on mammogram; Other benign mammary dysplasias of left breast; Unspecified lump in the left breast, upper outer quadrant 09/14/2024 Bamboo flowsheet [facility] OB [facility] [place] [address] Ethan Bond, 09/13/2024 Abstract [facility] [address] [place] [address] Ethan Bond, DO 09/12/2024 Travel 09/07/2024 Orders Only [facility] OB [address] [place] [address] [place] [address] Serena Benjamin LPN 06/21/2024 Refill [facility] OB [address] [place], [place] [address] [place] [address] Ethan Bond, Encounter for weight management from Last 3 [...] (120 lb) 09/14/2024 2:19 PM EDT Height 162.6 cm (5' 4 ) 09/10/2023 1:44 PM EDT Body Mass Index 20.6 09/10/2023 1:44 PM EDT Plan of Treatment Upcoming Encounters Date Type Department Care Team (Late st Contact Info) Description 09/20/2025 3:00 PM EDT Procedure Visit [facility] OB [facility] [place] [address] Ethan Bond, DO [address] [place] [address] [place] [address] Health Maintenance Due Date Last Done Comments CT Colonography 1975 Colonoscopy 1975 Colorectal Cancer Screening 1975 FIT-DNA 1975 FIT 1975 FOBT 1975 Sigmoidoscopy 1973 HPV/Cotest 05/30/2003 Mammogram 09/09/2024 09/10/2023 Influenza Vaccine (#1) 2024 01/16/2024 Cervical Cancer Screening 09/09/2026 Pap Smear 09/09/2026 09/10/2023, 06/04/2022, 07/2003 Procedures Procedure Name Priority Date/Time Associated Diagnosis Comments MM TOMOSYNTHESIS SCREENING BI 09/10/2023 9:07 AM EDT PAP SMEAR Routine 09/10/2023 12:00 AM EDT from Last 3 Months or Most Recently Relevant to Health Maintenance Results * MM TOMOSYNTHESIS SCREENING BI (09/10/2023 9:07 AM EDT) Anatomical Region Laterality Modality Other 09/10/2023 9:07 AM EDT Narrative 09/10/2023 9:08 [place] [address] Mammography Report Signed Patient: DORA TURNER MR#: [id number] : 1975 Acct:[id number] Age/Sex: 48 / F ADM Date: 09/10/23 Loc: MAMMO Attending Dr: Ethan Bond D.O. Ordering Physician: Ethan Bond D.O. Results: Date of Service: 09/10/23 Follow Up: Procedure(s): MM tomosynthesis screening BI Accession Number(s): [id number] cc: Marilynn Schaefer M.D.; Ethan Bond D.O. Patient Name: DORA TURNER MR#: [id number] : 1975 Exam Date: 09/10/2023 Ordering Doctor: [...] Treatments None Family Cancers None LOCATION: [facility] BREAST COMPOSITION: The breasts are heterogeneously [...] Dictated By: Jose Mejia M.D. Signed By: 09/10/23907 DD/ 6 TD/TT: Information Technology Specialist: Procedure Note Radiology, Radiologist, MD - 09/10/2023 [place] [address] Mammography Report Signed Patient: DORA TURNER R#: [id number] : 1975Acct:[id number] Age/Sex: 48 / FADM Date: 09/10/23 Loc: MAMMO Attending Dr: Ethan Bond D.O. Ordering Physician: Ethan Bond D.O.Results: Date of Service: 09/10/23Follow Up: Procedure(s): MM tomosynthesis screening BI Accession Number(s): [id number] cc: Marilynn Schaefer M.D.; Ethan Bond D.O. Patient Name: DORA TURNER MR#: [id number] : 1975 Exam Date: 09/10/2023 Ordering Doctor: [...] Treatments None Family Cancers None LOCATION: [facility] BREAST COMPOSITION: The breasts are heterogeneously [...] 09:07 Dictated By: Jose Mejia M.D. Signed By:09/10/23907 DD/ 6 TD/TT: Information Technology Specialist: Ethan Ronda DO [facility] Final Result * Pap Smear (09/10/2023 12:00 AM EDT) Swab Cervical swab / Unknown Ronda Nurse [facility] LAB CYTOLOGY ORDERABLES Final Result EXTERNAL LAB from Last 3 Months or Most Recently Relevant to Health Maintenance Insurance BS Care Teams Psychiatric Attendant Relationship Specialty Start Date End Date Marilynn Schaefer MD [address] [place] [address] PCP - General Family Medicine 09/10/23
--- OUTSIDE RECORDS SUMMARY | 2024-09-16 07:49 | XMS_ITS | Clinical Summary ---
Author Organization [facility] Address [id number] [address] [place] [address] Care Team Providers Care Commercial Front Load Driver Name Role Phone Unavailable Primary Care Provider [...]
--- OUTSIDE RECORDS SUMMARY | 2024-09-16 07:49 | XMS_ITS | Clinical Summary ---
Author Organization [facility] Address [address] [place], [place] [address] Care Team Providers Care Electric Fan Assembler Name Role Phone Unavailable Primary Care Provider [...] FLUID CERVICAL SCREENING (03/01/2003 12:06 PM EST) Chain Dyer Specimen #: [id number] Physician: ALY SEPULVEDA ([id number]) SPECIMEN SUBMITTED A: CERVICAL,SCREENING, FLUID FINAL DIAGNOSIS A.CERVICAL,SCREENIN G,FLUID SATISFACTORY FOR INTERPRETATION. NEGATIVE FOR INTRAEPITHELIAL LESION OR MALIGNANCY. This specimen has been analyzed by the PlugaroundPrep Imaging System (Yushino), an automated imaging and review system, which assists the laboratory in evaluating cells on ThinPrep Pap tests. Following automated imaging, selected craig from every slide are reviewed by a livestock feeder and/or pathologist. Emilee ALEGRE (ASCP) Electronic Signature CLINICAL DATA Date of Last Menstrual Period: 02/03/2003 Clinical History: ROUTINE Additional Testing: Reflex HPV testing for ASCUS result Henry Keith M.D. Canoe Inspector Final : 1975 (Age: 27) F Date of Report: 03/07/2003 Date of Procedure: 03/01/2003 Date of Receipt: 03/03/2003 Submitted by: ALY SEPULVEDA ([id number]) Location: A81 [facility] CERVICAL / Unknown 12:06 PM EST 03/03/2003 11:57 AM EST us Aly Sepulveda MD CYTOLOGY Final Result Performing Organization Address City/State/[facility] de Phone Number [facility] [phone] [phone] from Last 3 Months or Most Recently Relevant to Health Maintenance Insurance [employer] PPO
--- OUTSIDE RECORDS SUMMARY | 2024-09-16 07:49 | XMS_ITS | Encounter Summary ---
Author Organization [facility] Address [address] [facility] [place] [address] Care Team Providers Care Fire Extinguisher Technician Name Role Phone Marilynn Schaefer MD Primary Care Provider [phone] Encounter Details Date Type Department Care Team (Late st Contact Info) Description 09/10/2023 Clinisync Result Encounter N[facility] External Department Unsolicited Ethan Bond, DO [address], [facility] Social History Tobacco Use Types Packs/Day [...] EDT Procedure Visit [facility] OB [address] [place] [id number] Ethan Bond, DO [address] [place] [address] documented as of this encounter Procedures Procedure Name Priority Date/Time Associated Diagnosis Comments IGP,APTIMA HPV,AGE GDLN Routine 09/10/2023 1:32 PM EDT MM TOMOSYNTHESIS SCREENING BI 09/10/2023 9:07 AM EDT documented in this encounter Results * IGP,APTIMA HPV,AGE GDLN (09/10/2023 1:32 PM EDT) AGE GDLN AC TESTING Note . [facility] Comment: TESTS RESULT FLAG UNITS REF RANGE LAB Clinician Provided Cytology Information Source.............Cervix;Endocervix No. of containers..01 ThinPrep Vial Age Mariamao RENATA Kay... FLAG LEGEND: L-Low Normal,H-High Normal,LL-Alert Low,HH-Alert High <-Panic Low,>-Panic High,A-Abnormal,AA-Critical Abnormal Performed at: 01 =G [address] [place] [address] Natividad Spencer MD, IGP, APTIMA HPV, RFX 16/18,45 Note . [facility] Comment: TESTS RESULT FLAG UNITS REF RANGE LAB DIAGNOSIS: 02 NEGATIVE FOR INTRAEPITHELIAL LESION OR MALIGNANCY. CELLULAR CHANGES ASSOCIATED WITH INFLAMMATION ARE PRESENT. Specimen adequacy: 02 Satisfactory for evaluation. Endocervical and/or squamous metaplastic cells (endocervical component) are present. Performed by: 02 Keagan Leung, Client Advocate (ASCP) . 02 Note: Note 02 The [...] <-Panic Low,>-Panic High,A-Abnormal,AA-Critical Abnormal Performed at: [address] [place] [address] Natividad Spencer MD, HPV APTIMA Negative Negative [facility] Comment: This nucleic acid amplification test detects fourteen high- risk HPV types (16,18,31,33,35,39,45,51,52,56,58,59,66,68) without differentiation. Performed at: =[address] [id number] Peer Health Promoter: Natividad Spencer MD, Phone: [phone] Performed at: [address] [id number] Peer Health Promoter: Natividad Spencer MD, Phone: [phone] 09/10/2023 1:32 PM EDT 09/11/2023 7:22 AM EDT Narrative [facility] - 09/15/2023 4:09 PM EDT BRUSH-SPATULA CERVIX ENDOCERVIX us Ethan Bond DO LAB BLOOD ORDERABLES Final Resul t [facility] * MM TOMOSYNTHESIS SCREENING BI (09/10/2023 9:07 AM EDT) Anatomical Region Laterality Modality Other 09/10/2023 9:07 AM EDT Narrative 09/10/2023 9:08 [place] [address] Mammography Report Signed Patient: DORA TURNER MR#: [id number] : 1975 Acct:[id number] Age/Sex: 48 / F ADM Date: 09/10/23 Loc: MAMMO Attending Dr: Ethan Bond D.O. Ordering Physician: Ethan Bond D.O. Results: Date of Service: 09/10/23 Follow Up: Procedure(s): MM tomosynthesis screening BI Accession Number(s): [id number] cc: Marilynn Schaefer M.D.; Ethan Bond D.O. Patient Name: DORA TURNER MR#: [id number] : 1975 Exam Date: 09/10/2023 Ordering Doctor: [...] No Treatments None Family Cancers None LOCATION: [facility] BREAST COMPOSITION: The breasts are heterogeneously dense,which [...] M.D. Signed By: 09/10/2308 DD/ 6 TD/TT: Rigger Apprentice: Procedure Note Radiology, Radiologist, MD - 09/10/2023 [address] [place] [id number] Mammography Report Signed Patient: DORA TURNER R#: [id number] : 1975Acct:[id number] Age/Sex: 48 / FADM Date: 09/10/23 Loc: MAMMO Attending Dr: Ethan Bond D.O. Ordering Physician: Ethan Bond D.O.Results: Date of Service: 09/10/23Follow Up: Procedure(s): MM tomosynthesis screening BI Accession Number(s): [id number] cc: Marilynn Schaefer M.D.; Ethan Bond D.O. Patient Name: DORA TURNER MR#: [id number] : 1975 Exam Date: 09/10/2023 Ordering Doctor: [...] Treatments None Family Cancers None LOCATION: [facility] BREAST COMPOSITION: The breasts are heterogeneously [...] on 09/10/2023 at 09:07 Dictated By: Jose eMjia M.D. Signed By:09/10/23907 DD/ 6 TD/TT: Rigger Apprentice: us Ethan Ronda DO [facility] Final Result documented in this encounter Visit Diagnoses Not on filedocumented in this encounter Care Teams Fire Extinguisher Technician Relationship Specialty Start Date End Date Marilynn Schaefer MD [address] [place] [phone] PCP - General Family Medicine 09/10/23 documented as of this encounter
--- OUTSIDE RECORDS SUMMARY | 2024-09-16 07:49 | XMS_ITS | Encounter Summary ---
Author Organization [facility] Address [address] [facility] [place] [address] Care Team Providers Care Library Paraprofessional Name Role Phone Marilynn Schaefer MD Primary Care Provider [phone] Encounter Details Date Type Department Care Team (Late st Contact Info) Description 09/07/2024 Orders Only [facility] OB [address] [facility] [place] [place] [address] Serena Benjamin LPN [address] [facility] [place] [address] Social History Tobacco Use Types Packs/Day Years [...] EDT Procedure Visit [facility] OB [address] [facility] [place] [address] Ethan Bond DO [address] [facility] [place], [place] [address] documented as of this encounter Procedures Procedure Name Priority Date/Time Associated Diagnosis Comments PAP SMEAR Routine 09/10/2023 12:00 AM EDT documented in this encounter Results * Pap Smear (09/10/2023 12:00 AM EDT) Swab Cervical swab / Unknown us Ronda Nurse [facility] LAB CYTOLOGY ORDERABLES Final Result EXTERNAL LAB documented in this encounter Visit Diagnoses Not on filedocumented in this encounter Care Teams Library Paraprofessional Relationship Specialty Start Date End Date Marilynn Schaefer MD [address] [place] [address] PCP - General Family Medicine 09/10/23 documented as of this encounter
--- OUTSIDE RECORDS SUMMARY | 2024-09-16 07:49 | XMS_ITS | Encounter Summary ---
Author Organization [facility] Address [address] [facility] [place] [address] Care Team Providers Care Cover Remover Name Role Phone Marilynn Schaefer MD Primary Care Provider [phone] Encounter Details Date Type Department Care Team (Late st Contact Info) Description 09/02/2023 Orders Only [facility] OB [address] [facility] [place] [address] Serena Benjamin LPN [address] [facility] [place] [address] Social History Tobacco Use Types Packs/Day Years [...] EDT Procedure Visit [facility] OB [address] [facility] [place] [address] Ethan Bond DO [address] [facility] [place] [id number] documented as of this encounter Procedures Procedure [...] on filedocumented in this encounter Care Teams Cover Remover Relationship Specialty Start Date End Date Marilynn Schaefer MD [address] [place] [address] PCP - General Family Medicine 09/10/23 documented as of this encounter
--- OUTSIDE RECORDS SUMMARY | 2024-09-16 07:49 | XMS_ITS | Encounter Summary ---
Author Organization [facility] Address [address] [place], [place] [address] Care Team Providers Care Generation Technologist Name Role Phone Theresa Jolly WALL COVERING CONTRACTOR Primary Care Provider Unavailabl e Source Comments In the event this information is protected by the Federal Confidentiality of Alcohol and Drug AbusePatient Records regulations: The Federal rules restrict any use of the information to criminally investigate or prosecute any alcohol or drug abuse patient.[facility] Encounter Details Date Type Department Care [...] on filedocumented in this encounter Care Teams Generation Technologist Relationship Specialty Start Date End Date Theresa Jolly APRN PCP - General 04/01/03 12/24/04 documented as of this encounter
--- OUTSIDE RECORDS SUMMARY | 2024-09-16 07:49 | XMS_ITS | Encounter Summary ---
Author Organization [facility] Address [address] [place] [address] Care Team Providers Care Logistics Analyst Name Role Phone Marilynn Schaefer MD Primary Care Provider [phone] Encounter Details Date Type Department Care Team (Latest Contact Info) Description 09/12/2024 Travel Social History Tobacco Use Types Packs/Day Years [...] EDT Procedure Visit [facility] [address] [place] [address] Ethan Bond, DO [address] [place], [id number] documented as of this encounter Visit Diagnoses Not on filedocumented in this encounter Care Teams Logistics Analyst Relationship Specialty Start Date End Date Marilynn Schaefer MD [address] [facility] [place] [address] PCP - General Family Medicine 09/10/23 documented as of this encounter
== END 2024-09-16 07:49 | disposition home or self-care (01) ==
LOC: RAD 07:48
PROVIDERS: PCP Family Medicine; Visit Provider Obstetrics & Gynecology
DX: Z78.0 Asymptomatic menopausal state (principal); M85.80 Other specified disorders of bone density and structure, unspecified site
CPT/HCPCS: 77080